=== PATIENT | female | born 1965 | race Caucasian/White ===

== ENCOUNTER → 2017-07-01 | Outpatient (CLI) | payer OTHER, SELFPAY | PROVIDERS: Visit Provider Internal Medicine | DX: I50.30 Unspecified diastolic (congestive) heart failure (principal); I11.9 Hypertensive heart disease without heart failure; E78.5 Hyperlipidemia, unspecified; R01.1 Cardiac murmur, unspecified; E11.9 Type 2 diabetes mellitus without complications; G47.33 Obstructive sleep apnea (adult) (pediatric) | CPT/HCPCS: 36415; 80048; 83880 ==

== ENCOUNTER → 2017-07-12 | Outpatient (CLI) | payer OTHER, SELFPAY | PROVIDERS: Visit Provider Internal Medicine | DX: I10 Essential (primary) hypertension (principal); E78.5 Hyperlipidemia, unspecified; E16.2 Hypoglycemia, unspecified; N18.2 Chronic kidney disease, stage 2 (mild) | CPT/HCPCS: 36415; 80053; 80061; 85025 ==

== ENCOUNTER → 2017-08-29 11:20 | Outpatient (CLI) | payer OTHER, SELFPAY ==
[2017-08-29 12:25] LABS: Anion Gap 10.8 mEq/L (5-15); Blood Urea Nitrogen 13 mg/dL (7-18); Carbon Dioxide 29 mmol/L (21.0-32.0); Chloride 104 mmol/L (98-107); Creatinine,Serum 0.68 mg/dL (0.55-1.02); Estimated Glomerular Filt Rate 91 ml/min (>60); GFR (African American) 110 ML/MIN (>60); Glucose 149 mg/dL (74-106); Potassium 3.8 mmoL/L (3.5-5.1); Sodium 140 mmol/L (136-145)
== END ==
PROVIDERS: Family Provider Internal Medicine; PCP Internal Medicine; Visit Provider Internal Medicine Cardiovascular Disease
DX: I10 Essential (primary) hypertension (principal); E78.4 Other hyperlipidemia; I50.32 Chronic diastolic (congestive) heart failure; G47.33 Obstructive sleep apnea (adult) (pediatric); R60.9 Edema, unspecified; R06.09 Other forms of dyspnea
CPT/HCPCS: 36415; 80048

== ENCOUNTER → 2017-09-05 14:46 | Outpatient (CLI) | payer OTHER, SELFPAY ==
[2017-09-12 06:16] LABS: D001-IgE D pteronyssinus <0.10 kU/L (Class 0); D002-IgE D farinae <0.10 kU/L (Class 0); E001-IgE Cat Dander <0.10 kU/L (Class 0); E005-IgE Dog Dander <0.10 kU/L (Class 0); G002-IgE Bermuda Grass <0.10 kU/L (Class 0); G006-IgE Timothy Grass <0.10 kU/L (Class 0); I006-IgE Cockroach, German <0.10 kU/L (Class 0); Immunoglobulin E, Total 15 IU/mL (0-100); M001-IgE Penicillium chrysogen <0.10 kU/L (Class 0); M002-IgE Cladosporium herbarum <0.10 kU/L (Class 0); M003-IgE Aspergillus fumigatus <0.10 kU/L (Class 0); M006-IgE Alternaria alternata <0.10 kU/L (Class 0); T001-IgE Maple/Box Elder <0.10 kU/L (Class 0); T003-IgE Common Silver Birch <0.10 kU/L (Class 0); T006-IgE Cedar, Mountain <0.10 kU/L (Class 0); T007-IgE Oak, White <0.10 kU/L (Class 0); T008-IgE Elm, American <0.10 kU/L (Class 0); T010-IgE Walnut <0.10 kU/L (Class 0); T011-IgE Maple Leaf Sycamore <0.10 kU/L (Class 0); T014-IgE Cottonwood <0.10 kU/L (Class 0); T015-IgE Ash, White <0.10 kU/L (Class 0); T022-IgE Pecan, Hickory <0.10 kU/L (Class 0); T070-IgE White Mulberry <0.10 kU/L (Class 0); W001-IgE Ragweed, Short <0.10 kU/L (Class 0); W011-IgE Thistle, Russian <0.10 kU/L (Class 0); W014-IgE Pigweed, Common <0.10 kU/L (Class 0); W018-IgE Sheep Sorrel <0.10 kU/L (Class 0)
[2017-09-12 11:53] LABS: E072-IgE Mouse Urine <0.10 kU/L (Class 0)
[2017-09-13 17:20] LABS: Miscellaneous Test SEE SEP REPORT
== END ==
PROVIDERS: Visit Provider Allergy & Immunology
DX: T78.1XXA Other adverse food reactions, not elsewhere classified, initial encounter (principal)
CPT/HCPCS: 36415; 86003

== ENCOUNTER → 2018-02-17 07:10 | Outpatient (CLI) | payer OTHER, SELFPAY ==
[2018-02-17 08:41] LABS: Anion Gap 15.2 mEq/L (5-15); Blood Urea Nitrogen 25 mg/dL (7-18); Calcium 9.8 mg/dL (8.5-10.1); Carbon Dioxide 25 mmol/L (21.0-32.0); Chloride 100 mmol/L (98-107); Creatinine,Serum 1.02 mg/dL (0.55-1.02); Estimated Glomerular Filt Rate 57 ml/min (>60); GFR (African American) 69 ML/MIN (>60); Glucose 254 mg/dL (74-106); Potassium 4.2 mmoL/L (3.5-5.1); Sodium 136 mmol/L (136-145)
== END ==
PROVIDERS: Visit Provider Physician Assistant
DX: I10 Essential (primary) hypertension (principal); E78.5 Hyperlipidemia, unspecified; I50.30 Unspecified diastolic (congestive) heart failure; R60.9 Edema, unspecified; R06.09 Other forms of dyspnea; G47.33 Obstructive sleep apnea (adult) (pediatric)
CPT/HCPCS: 36415; 80048

== ENCOUNTER → 2018-02-19 20:06 | Outpatient (CLI) | payer OTHER, SELFPAY | PROVIDERS: PCP Internal Medicine; Referring Provider Internal Medicine Cardiovascular Disease; Visit Provider Specialist | DX: G47.33 Obstructive sleep apnea (adult) (pediatric) (principal) | CPT/HCPCS: 95811 ==

== ENCOUNTER → 2018-04-25 10:10 | Outpatient (CLI) | payer OTHER, SELFPAY ==
[2018-04-25 11:20] LABS: Hemoglobin A1C 7.5 % (0.0-7.0)
[2018-04-25 12:32] LABS: Alanine Aminotransferase 55 U/L (12-78); Albumin Level 3.5 gm/dL (3.4-5.0); Alkaline Phosphatase 120 U/L (46-116); Anion Gap 13.9 mEq/L (5-15); Aspartate Amino Transferase 38 U/L (15-37); Bilirubin,Total 0.4 mg/dL (0.2-1.0); Blood Urea Nitrogen 13 mg/dL (7-18); Calcium 9.1 mg/dL (8.5-10.1); Carbon Dioxide 25 mmol/L (21.0-32.0); Chloride 103 mmol/L (98-107); Chol/HDL Ratio 5.3 (1-3.5); Cholesterol 205 mg/dL (140-200); Creatinine,Serum 0.79 mg/dL (0.55-1.02); Estimated Glomerular Filt Rate 76 ml/min (>60); GFR (African American) 92 ML/MIN (>60); Globulin 3.6 gm/dl (1.3-3.2); Glucose 137 mg/dL (74-106); HDL Cholesterol 39 mg/dL (29-89); LDL Cholesterol 105 mg/dL (0-130); Potassium 3.9 mmoL/L (3.5-5.1); Sodium 138 mmol/L (136-145); Total Protein,Serum 7.1 gm/dL (6.4-8.2); Triglycerides 306 mg/dL (30-200); VLDL Cholesterol 61 mg/dL (0-40)
== END ==
PROVIDERS: PCP Internal Medicine; Visit Provider Specialist
DX: E11.9 Type 2 diabetes mellitus without complications (principal); I10 Essential (primary) hypertension
CPT/HCPCS: 80053; 80061; 83036

== ENCOUNTER → 2018-06-24 11:57 | Outpatient (CLI) | payer OTHER, SELFPAY ==
[2018-06-24 13:10] LABS: Anion Gap 18.4 mEq/L (5-15); Blood Urea Nitrogen 29 mg/dL (7-18); Carbon Dioxide 24 mmol/L (21.0-32.0); Chloride 100 mmol/L (98-107); Creatinine,Serum 1.15 mg/dL (0.55-1.02); Estimated Glomerular Filt Rate 50 ml/min (>60); GFR (African American) 60 ML/MIN (>60); Glucose 204 mg/dL (74-106); Potassium 4.4 mmoL/L (3.5-5.1); Sodium 138 mmol/L (136-145)
== END ==
PROVIDERS: Visit Provider Internal Medicine Cardiovascular Disease
DX: E78.49 Other hyperlipidemia (principal); G47.33 Obstructive sleep apnea (adult) (pediatric); I10 Essential (primary) hypertension; I50.32 Chronic diastolic (congestive) heart failure; R06.09 Other forms of dyspnea; R60.1 Generalized edema
CPT/HCPCS: 36415; 80048

== ENCOUNTER → 2018-06-27 12:31 | Outpatient (CLI) | payer OTHER, SELFPAY | PROVIDERS: PCP Internal Medicine; Visit Provider Physician Assistant | DX: R00.0 Tachycardia, unspecified (principal) | CPT/HCPCS: 93270 ==

== ENCOUNTER → 2018-07-24 14:38 | Outpatient (CLI) | payer OTHER, SELFPAY ==
--- NOTE | 2018-07-24 14:39 | XR_ITS ---
XR foot wt bearing RT 3V HISTORY: ITS.REASON: pain ORDERING PHYSICIAN: Alicia Vega DPM PATIENT AGE: 52 years COMPARISON: None FINDINGS: There are minimal osteoarthritic change of the first metatarsophalangeal joint with spurring along the posterior and distal aspect of the first metatarsal. Borderline pes planus. Small calcaneal spur. No fracture or dislocation. No lytic or blastic change. The mid foot has an unremarkable appearance. IMPRESSION: Borderline pes planus with osteoarthritis of the first metatarsophalangeal joint
== END ==
PROVIDERS: PCP Internal Medicine; Visit Provider Podiatrist
DX: S99.921A Unspecified injury of right foot, initial encounter (principal)
CPT/HCPCS: 73630

== ENCOUNTER → 2019-01-02 08:13 | Outpatient (CLI) | payer OTHER, SELFPAY ==
--- NOTE | 2019-01-02 08:16 | MM_ITS ---
MM Dig screening mamm BI w/CAD ORDERING PHYSICIAN : Baron Hernandez PATIENT AGE: 53 years GENDER: Female COMPARISON: Bilateral mammogram studies from February 2016 and 2012. Film screen mammogram October 2009 and September 2008 INDICATION: ITS.Routine screening mammogram.. No hormones. Patient has one ovary. No new complaints. Noncontributory family history TECHNIQUE: Standard CC and MLO images were obtained. R2 CAD reviewed. Additional cleavage view included FINDINGS: Lower density breast with minimal fibroglandular elements bilaterally. No dominant masses significant concern. No significant calcifications. Minimal density towards superior right and left breast are similar to previous studies and reflect the distribution of fibroglandular elements. IMPRESSION: Stable bilateral mammogram with no significant new findings. Bilateral follow-up in one year recommended. BI-RADS Category: 2 stable Benign Finding(s) 1 RECOMMENDED FOLLOW-UP: 1YR 1 YEAR FOLLOW-UP (A letter has been sent to the patient regarding results of the study.)
== END ==
PROVIDERS: PCP Internal Medicine; Visit Provider Internal Medicine
DX: Z12.31 Encounter for screening mammogram for malignant neoplasm of breast (principal)
CPT/HCPCS: 77067

== ENCOUNTER → 2019-11-26 12:44 | Outpatient (CLI) | payer OTHER, SELFPAY ==
--- NOTE | 2019-11-26 12:50 | XR_ITS ---
PROCEDURE: XR FOOT WT BEARING LT 3V CLINICAL INDICATION: pain COMPARISON: [id number] XR foot RT 2V from 07/02/2018 [id number] XR foot wt bearing RT 3V from 07/24/2018 FINDINGS: No fracture or dislocation. No lytic or blastic change. There is normal mineralization. The joint spaces are well-preserved. No significant degenerative/arthritic changes. No erosive changes evident. Other findings:Flexion deformity involves the 2nd toe. Borderline pes planus there is a small calcaneal spur IMPRESSION: Flexion deformity 2nd toe with borderline pes planus Dictated by: Дмитрий Carrizales MD 11/26/2019 13:31 Electronically signed by Дмитрий Carrizales MD in [place] 11/26/2019 13:31
--- NOTE | 2019-11-26 12:50 | XR_ITS ---
PROCEDURE: XR FOOT WT BEARING RT 3V CLINICAL INDICATION: pain Right foot pain COMPARISON: [id number] XR foot RT 2V from 07/02/2018 [id number] XR foot wt bearing RT 3V from 07/24/2018 FINDINGS: No fracture or dislocation. No lytic or blastic change. There is normal mineralization. There are osteoarthritic changes at the 1st metatarsophalangeal joint. Borderline pes planus. There are mild degenerative changes at the anterior distal tibia. Minimal bony hypertrophy is present at this region. Other findings:None. IMPRESSION: Osteoarthritis 1st MTP joint slightly progressed with borderline pes planus Dictated by: Дмитрий Carrizales MD 11/26/2019 13:22 Electronically signed by Дмитрий Carrizales MD in [place] 11/26/2019 13:22
== END ==
PROVIDERS: PCP Internal Medicine; Visit Provider Podiatrist
DX: M79.672 Pain in left foot (principal); M79.671 Pain in right foot
CPT/HCPCS: 73630

== ENCOUNTER → 2019-12-01 16:56 | Outpatient (CLI) | payer OTHER, SELFPAY ==
[2019-12-01 17:28] LABS: Blood Urea Nitrogen 25 mg/dl (7-17); Estimated Glomerular Filt Rate 65 ml/min (>60); GFR (African American) 79 ML/MIN (>60)
== END ==
PROVIDERS: Visit Provider Podiatrist
DX: G89.29 Other chronic pain (principal); M25.571 Pain in right ankle and joints of right foot; R22.41 Localized swelling, mass and lump, right lower limb
CPT/HCPCS: 36415; 82565; 84520

== ENCOUNTER → 2019-12-04 12:57 | Outpatient (CLI) | payer OTHER, SELFPAY ==
--- NOTE | 2019-12-04 12:57 | MR_ITS ---
PROCEDURE: MR FOOT RT WO/W CON CLINICAL INDICATION: eval presence of clinical soft tissue mass noted. Foot pain with palpable mass, ATFL sprain/tear, ankle joint effusion, edema, posterior tibial tendon dysfunction COMPARISON: XR FOOT WT BEARING RT 3V from 11/26/2019 MR FOOT RT WO/W CON from 12/04/2019 TECHNIQUE: Routine multiplanar multi echo sequences are performed without and with gadolinium enhancement. FINDINGS: A marker is placed on the area of palpable concern. Stir images show no areas of bone marrow edema. No obvious fracture. Tibiofibular ligaments are intact. There is some thickening of the ATFL on the T2 weighted images with some enhancement suggesting sprain or partial tear. PT FL appears intact the. The deltoid ligament appears intact. The peroneal tendons, Achilles tendon, posterior tibial tendon, flexor hallucis longus and flexor digitorum longus tendons appear intact. The anterior extensor tendons also appear intact. The there is borderline pes planus. A marker is placed along the lateral aspect of the ankle to latrice the area of palpable concern. There is some asymmetric prominence of adipose tissue in this region suggesting a lipoma measuring approximately 4 x 2 cm. No other abnormalities are evident. No suspicious soft tissue mass or fluid collection is apparent. This is just distal and anterior to the tip of the lateral malleolus.. There is mild hallux valgus with osteoarthritis of the 1st MTP joint. There is a focal area of increased T2 signal at the base of the 3rd metatarsal.. This does demonstrate contrast enhancement best detected on the coronal images. Etiology is indeterminate. Follow-up is suggested. No adjacent soft tissue mass. The cortex appears intact. The IMPRESSION: 1. Sprain versus partial tear of the ATFL. 2. 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 Small enhancing lesion at the base of the 3rd metatarsal. This measures approximately 8 mm and is of undetermined etiology. Neoplasm or infection is considered. Consider 3 month follow-up to confirm stability 4. Osteoarthritis 1st MTP joint with mild hallux valgus and mild pes planus Dictated by: Дмитрий Carrizales MD 12/04/2019 16:21 Electronically signed by Дмитрий Carrizales MD in [place] 12/09/2019 11:04
--- NOTE | 2019-12-04 12:57 | MR_ITS ---
PROCEDURE: MR ANKLE RT WO/W CON CLINICAL INDICATION: eval presence of clinical soft tissue mass noted. Foot pain with palpable mass, ATFL sprain/tear, ankle joint effusion, edema, posterior tibial tendon dysfunction COMPARISON: XR FOOT WT BEARING RT 3V from 11/26/2019 MR FOOT RT WO/W CON from 12/04/2019 TECHNIQUE: Routine multiplanar multi echo sequences are performed without and with gadolinium enhancement. FINDINGS: A marker is placed on the area of palpable concern. Stir images show no areas of bone marrow edema. No obvious fracture. Tibiofibular ligaments are intact. There is some thickening of the ATFL on the T2 weighted images with some enhancement suggesting sprain or partial tear. Posterior tibio-fibular ligament appears intact. The deltoid ligament appears intact. The peroneal tendons, Achilles tendon, posterior tibial tendon, flexor hallucis longus and flexor digitorum longus tendons appear intact. The anterior extensor tendons also appear intact. The there is borderline pes planus. A marker is placed along the lateral aspect of the ankle to latrice the area of palpable concern. There is some asymmetric prominence of adipose tissue in this region suggesting a lipoma measuring approximately 4 x 2 cm. No other abnormalities are evident. No suspicious soft tissue mass or fluid collection is apparent. This is just distal and anterior to the tip of the lateral malleolus.. There is mild hallux valgus with osteoarthritis of the 1st MTP joint. There is a focal area of increased T2 signal at the base of the 3rd metatarsal.. This does demonstrate contrast enhancement best detected on the coronal images. Etiology is indeterminate. Follow-up is suggested. No adjacent soft tissue mass. The cortex appears intact. The IMPRESSION: 1. Sprain versus partial tear of the ATFL. 2. 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 Small enhancing lesion at the base of the 3rd metatarsal. This measures approximately 8 mm and is of undetermined etiology. Neoplasm or infection is considered. Consider 3 month follow-up to confirm stability 4. Osteoarthritis 1st MTP joint with mild hallux valgus and mild pes planus Dictated by: Дмитрий Carrizales MD 12/09/2019 11:03 Electronically signed by Дмитрий Carrizales MD in [place] 12/09/2019 11:03
== END ==
PROVIDERS: PCP Internal Medicine; Visit Provider Podiatrist
DX: G89.29 Other chronic pain (principal); M25.571 Pain in right ankle and joints of right foot; R22.41 Localized swelling, mass and lump, right lower limb
CPT/HCPCS: 73720; 73723

== ENCOUNTER → 2020-01-22 10:59 | Outpatient (CLI) | payer OTHER, SELFPAY ==
[2020-01-22 12:52] LABS: Chloride 102 mmol/L (98-107); Potassium 4.5 mmoL/L (3.5-5.1); Sodium 138 mmol/L (136-145)
[2020-01-22 12:55] LABS: Anion Gap 15.5 mEq/L (5-15); Blood Urea Nitrogen 26 mg/dl (7-17); Calcium 10.8 mg/dl (8.4-10.2); Carbon Dioxide 25 mmol/L (22.0-30.0); Estimated Glomerular Filt Rate 58 ml/min (>60); GFR (African American) 70 ML/MIN (>60); Glucose 107 mg/dl (74-100)
[2020-01-22 13:09] LABS: NT Pro Brain Natriuretic Pep. 45.4 pg/mL (0-125)
== END ==
PROVIDERS: Visit Provider Internal Medicine Cardiovascular Disease
DX: I50.32 Chronic diastolic (congestive) heart failure (principal); R06.02 Shortness of breath; R60.1 Generalized edema; E78.49 Other hyperlipidemia; I10 Essential (primary) hypertension
CPT/HCPCS: 36415; 80048; 83880; 93270

== ENCOUNTER 2020-02-03 09:30 | Outpatient (RCR) | payer OTHER, SELFPAY ==
--- NOTE | 2020-01-12 17:05 | HMH.PTOPEV ---
PT Outpatient Evaluation Rehab PT Outpatient Evaluation Start: 01/12/20 16:18 Freq: Status: Active Protocol: Document 01/12/20 16:18 JALILROSALINA (Rec: 01/12/20 17:05 JALILROSALINA [id number]) Electronically Signed By Michael Salmon, PT 01/12/20 16:18 Outpatient Therapy Subjective History Subjective History This is the initial Physical Therapy evaluation for Radha Ward. Pt is a 54 y/o female referred to PT for c/o R foot pain. Pt reports insidious onset of pain ~ 3 months ago, but does report new orthotics ~ 6 months ago. Pt rpeorts pain is on lateral side and dorsum of R foot. Pt reports pain is an aching throb that will increase to a burning pain w/ activity. Chief Complaint Pain Symptom Type Ache,Throb,Sharp,Dull,Stabbing ,Burning Symptoms Relieved By Rest/Positioning,OTC Meds Symptoms Aggravated By Standing,Physical Activity, Walking Prior Functional Limitations None Current Functional Limitations Lifting,Standing,Recreation Activity,Walking Symptom Description Intermittent Level of pain today (0-10) 3 Pain scale - at its best (0-10) 0 Pain scale - at its worst (0-10) 9 Ankle/Foot Eval Gait Observation General Gait Pattern Observation Antalgic Gait,Decrease Weight Bear (R) Palpation Tenderness right Ankle/Foot Palpation Findings Tenderness,Trigger Point Ankle/Foot Palpation Overall Comment Pt is TTP along peroneal tendon and insertion, multiple trigger points MMT Ankle Dorsiflexion Strength Grade 4 Good Ankle Plantarflexion Strength Grade 4 Good Foot Eversion Strength Grade 4 Good Foot Inversion Strength Grade 5 Normal Special Tests Ankle Anterior Drawer Test Negative Right Ankle Eversion Test Negative Right Ankle Inversion (supination) Test Positive Right Outpatient Therapy Assessment Impairments Problems/Impairmments Palpation Tenderness,Impaired Strength,Impaired Gait Pattern ,Impaired Walking,Impaired Standing,Impaired Household Care,Impaired Recreational Activities,Impaired Work Activities,Subjective C/O Pain ,Impaired Self Care/Self
== END 2020-02-03 09:35 | disposition home or self-care (01) ==
LOC: PT 09:30
PROVIDERS: PCP Internal Medicine; Visit Provider Podiatrist
DX: M25.571 Pain in right ankle and joints of right foot (principal); M76.821 Posterior tibial tendinitis, right leg; S93.491A Sprain of other ligament of right ankle, initial encounter
CPT/HCPCS: 97010; 97035; 97110; 97140; 97163

== ENCOUNTER → 2020-03-29 14:43 | Outpatient (CLI) | payer OTHER, SELFPAY ==
--- NOTE | 2020-03-29 | MR_ITS ---
PROCEDURE: MR HEAD/BRAIN WO CON CLINICAL INDICATION: CONFUSION AND DIFFICULTY GETTING WORDS OUT PT. C/O CONFUSION AND TROUBLE GETTING WORDS OUT X 2 MONTHS. PT ALSO STATES HX OF MIGRAINES. PRIOR CT BRAIN DONE 03/30/2019 COMPARISON: CT CT HEAD/BRAIN WO CON from 03/30/2019 TECHNIQUE: Routine multiplanar multi echo sequences are performed without gadolinium enhancement. FINDINGS: No midline shift, mass effect, intracranial hemorrhage, or hydrocephalus is evident. The cerebellopontine angles, cerebellum, and brainstem have an unremarkable appearance. There is no evidence of acute infarction. Normal white matter signal intensity. The pituitary, optic chiasm, corpus callosum, and craniocervical junction have an unremarkable appearance. No mastoid effusion or sinus air-fluid level. IMPRESSION: Negative MRI of the brain without contrast. Dictated by: Дмитрий Carrizales MD 03/30/2020 13:04 Дмитрий Carrizales MD in [facility] 03/30/2020 13:04
== END ==
PROVIDERS: PCP Internal Medicine; Visit Provider Internal Medicine
DX: R41.0 Disorientation, unspecified (principal); R47.89 Other speech disturbances
CPT/HCPCS: 70551

== ENCOUNTER → 2020-04-07 11:57 | Outpatient (CLI) | payer OTHER, SELFPAY ==
[2020-04-07 11:59] LABS: MANUAL DIFFERENTIAL MANUAL DIFFERENTIAL (MANUAL DIFF)
[2020-04-07 13:12] LABS: Basophils % 0.3 % (0.1-2.0); Eosinophils # 0.2 K/mm3 (0.0-0.4); Eosinophils % 2.7 % (0.1-12.0); Hematocrit 39.5 % (37.0-47.0); Hemoglobin 12.7 g/dL (12.2-16.2); Lymphocytes # 1.6 K/mm3 (0.7-4.5); Lymphocytes % 18.8 % (10-50); Mean Corpuscular HGB Conc 32.2 g/dL (31.8-35.4); Mean Corpuscular Hemoglobin 29.5 pg (27.0-31.2); Mean Corpuscular Volume 91.7 fl (81-99); Mean Platelet Volume 7.4 fl (7.4-10.4); Monocytes # 0.6 K/mm3 (0.1-1.0); Monocytes % 6.9 % (1.7-9.3); Neutrophils # 6.2 K/mm3 (1.8-7.8); Neutrophils % 71.1 % (37.0-80.0); Platelet Count 347 K/mm3 (142-424); Red Cell Distribution Width 14.1 % (11.5-17.5); White Blood Count 8.7 K/mm3 (4.8-10.8)
[2020-04-07 14:29] LABS: Chloride 104 mmol/L (98-107); Potassium 4.4 mmoL/L (3.5-5.1); Sodium 141 mmol/L (136-145)
[2020-04-07 14:32] LABS: Alanine Aminotransferase 24 U/L (12-78); Albumin Level 4.2 g/dl (3.5-5.0); Albumin/Globulin Ratio 1.6 (1.1-1.8); Alkaline Phosphatase 118 U/L (38-126); Anion Gap 17.4 mEq/L (5-15); Aspartate Amino Transferase 21 U/L (14-36); Bilirubin,Total 0.4 mg/dl (0.2-1.3); Blood Urea Nitrogen 15 mg/dl (7-17); Carbon Dioxide 24 mmol/L (22.0-30.0); Estimated Glomerular Filt Rate 75 ml/min (>60); GFR (African American) 90 ML/MIN (>60); Globulin 2.7 g/dL (1.3-3.2); Total Protein,Serum 6.9 g/dl (6.3-8.2)
[2020-04-07 14:33] LABS: Glucose 152 mg/dl (74-100)
[2020-04-07 14:42] LABS: Eosinophils % 2 % (0-3); Lymphocytes % 14 % (10-50); Monocytes % 6 % (2-9); Neutrophils % 78 % (42-76); Platelet Estimate Normal; RBC Morphology Normal; Total Cells Counted 100
[2020-04-07 20:42] LABS: Vitamin B12 315 pg/mL (239-931)
[2020-04-08 12:16] LABS: Anti-Centromere B Antibodies <0.2 AI (0.0-0.9); Anti-Jo-1 <0.2 AI (0.0-0.9); Anti-Smith Antibody <0.2 AI (0.0-0.9); Antichromatin Antibodies <0.2 AI (0.0-0.9); Antiscleroderma-70 Antibodies <0.2 AI (0.0-0.9); RNP Antibodies <0.2 AI (0.0-0.9); Sjogren's Anti-SS-A 0.2 AI (0.0-0.9); Sjogren's Anti-SS-B <0.2 AI (0.0-0.9)
[2020-04-08 17:19] LABS: Anti-DNA (DS) Ab Qn 5 IU/mL (0-9)
== END ==
PROVIDERS: Visit Provider Specialist
DX: H53.123 Transient visual loss, bilateral (principal); R47.89 Other speech disturbances
CPT/HCPCS: 36415; 80053; 82607; 85007; 85014; 85018; 85048; 85049; 86225; 86235

== ENCOUNTER → 2020-04-15 08:40 | Outpatient (CLI) | payer OTHER, SELFPAY ==
--- NOTE | 2020-04-15 08:40 | MR_ITS ---
PROCEDURE: MR ANGIO NECK WO CON CLINICAL INDICATION: transient visual loss PT. C/O CONFUSION AND TROUBLE GETTING WORDS OUT X 2 MONTHS,RETINAL MIGRAINES, DIABETIC, HEART DISEASE. PT STATES CHECKING VESSELS BECAUSE SHE IS HIGH RISK FOR STROKE. COMPARISON: No exams were available for comparison TECHNIQUE: Routine multiplanar multi echo sequences are performed without gadolinium enhancement. FINDINGS: 3D [id number] images are obtained without contrast. Or the proximal common carotids are not demonstrated. The cervical portion of the carotid arteries including common carotid and internal carotid arteries have an unremarkable appearance. No obvious stenotic lesion or occlusion or dissection apparent. The cervical portion of vertebrals have an unremarkable appearance. The left vertebral is dominant. IMPRESSION: Negative MRA of the neck. Dictated by: Дмитрий Carrizales MD 04/17/2020 13:01 Дмитрий Carrizales MD in [facility] 04/17/2020 13:01
--- NOTE | 2020-04-15 08:40 | MR_ITS ---
PROCEDURE: MR ANGIO HEAD WO CON CLINICAL INDICATION: headaches, word finding difficulty PT. C/O CONFUSION AND TROUBLE GETTING WORDS OUT X 2 MONTHS,RETINAL MIGRAINES, DIABETIC, HEART DISEASE. PT STATES CHECKING VESSELS BECAUSE SHE IS HIGH RISK FOR STROKE. COMPARISON: No exams were available for comparison TECHNIQUE: 3D [id number] images obtained without contrast with multi slab reformats FINDINGS: No aneurysm, arteriovenous malformation, major intracranial occlusive process, or arterial dissection evident. Single-shot MRV shows no evidence of sagittal sinus thrombosis. IMPRESSION: Negative MRA of the brain Dictated by: Дмитрий Carrizales MD 04/17/2020 13:04 Дмитрий Carrizales MD in [facility] 04/17/2020 13:04
== END ==
PROVIDERS: PCP Internal Medicine; Visit Provider Specialist
DX: R47.89 Other speech disturbances (principal); E11.65 Type 2 diabetes mellitus with hyperglycemia; E78.5 Hyperlipidemia, unspecified; H53.123 Transient visual loss, bilateral; I10 Essential (primary) hypertension; Z79.84 Long term (current) use of oral hypoglycemic drugs
CPT/HCPCS: 70544; 70547

== ENCOUNTER → 2020-06-02 12:49 | Outpatient (CLI) | payer OTHER, SELFPAY ==
--- NOTE | 2020-06-02 12:52 | CT_ITS ---
PROCEDURE: CT ABDOMEN PELVIS WO CON CLINICAL INDICATION: LT ABD PAIN LLQ pain, nausea x several days no prior COMPARISON: No exams were available for comparison TECHNIQUE: Axial images obtained with sagittal and coronal reformats. All CT scans at the facility use one or more dose reduction, viz: automated exposure control, ma/kV adjustment per patient size (including targeted exams where dose is matched to indication, i.e. head), or iterative reconstruction technique. FINDINGS: LOWER THORAX: Mild atelectatic or fibrotic changes in the right lung base. ABDOMEN & PELVIS: The liver, gallbladder, spleen, adrenal glands, and pancreas have an unremarkable unenhanced appearance. There is a nonobstructing 2 mm stone in the upper pole of the left kidney. No hydronephrosis. No ureteral calculi. Mild amount of retained colonic feces. No intestinal obstruction or free air. No evidence of appendicitis. There are scattered colonic diverticula but no evidence of diverticulitis. There has been a prior hysterectomy. The no acute bony findings. Degenerative changes are present in the lumbar spine with facet arthropathy at L3-L4 and L5. IMPRESSION: 1. No acute finding. 2. Nonobstructing left renal calculus. 3. Mild amount of retained colonic feces with scattered colonic diverticula but no evidence of diverticulitis Dictated by: Дмитрий Carrizales MD 06/03/2020 09:11 Дмитрий Carrizales MD in [facility] 06/03/2020 09:11
== END ==
PROVIDERS: PCP Internal Medicine; Visit Provider Internal Medicine
DX: R10.32 Left lower quadrant pain (principal)
CPT/HCPCS: 74176

== ENCOUNTER → 2020-06-06 11:49 | Outpatient (CLI) | payer OTHER, SELFPAY ==
[2020-06-06 12:08] LABS: Basophils % 0.5 % (0.1-2.0); Eosinophils # 0.3 K/mm3 (0.0-0.4); Eosinophils % 3.9 % (0.1-12.0); Hematocrit 41.5 % (37.0-47.0); Hemoglobin 13.5 g/dL (12.2-16.2); Lymphocytes # 1.6 K/mm3 (0.7-4.5); Lymphocytes % 20.7 % (10-50); Mean Corpuscular HGB Conc 32.7 g/dL (31.8-35.4); Mean Corpuscular Hemoglobin 30.2 pg (27.0-31.2); Mean Corpuscular Volume 92.5 fl (81-99); Mean Platelet Volume 7.7 fl (7.4-10.4); Monocytes # 0.5 K/mm3 (0.1-1.0); Monocytes % 6.3 % (1.7-9.3); Neutrophils # 5.4 K/mm3 (1.8-7.8); Neutrophils % 68.6 % (37.0-80.0); Platelet Count 369 K/mm3 (142-424); Red Blood Count 4.48 M/mm3 (4.20-5.40); Red Cell Distribution Width 14.2 % (11.5-17.5); White Blood Count 7.9 K/mm3 (4.8-10.8)
[2020-06-06 12:55] LABS: Chloride 105 mmol/L (98-107); Sodium 143 mmol/L (136-145)
[2020-06-06 12:56] LABS: Potassium 4.2 mmoL/L (3.5-5.1)
[2020-06-06 12:58] LABS: Blood Urea Nitrogen 21 mg/dl (7-17); Estimated Glomerular Filt Rate 47 ml/min (>60); GFR (African American) 57 ML/MIN (>60)
[2020-06-06 12:59] LABS: Anion Gap 16.2 mEq/L (5-15); Calcium 10.8 mg/dl (8.4-10.2); Carbon Dioxide 26 mmol/L (22.0-30.0); Glucose 117 mg/dl (74-100)
== END ==
PROVIDERS: Visit Provider Internal Medicine
DX: R10.32 Left lower quadrant pain (principal)
CPT/HCPCS: 36415; 80048; 85025

== ENCOUNTER → 2020-06-16 10:31 | Outpatient (CLI) | payer OTHER, SELFPAY ==
--- NOTE | 2020-06-16 10:36 | CT_ITS ---
PROCEDURE: CT ABDOMEN PELVIS W CON CLINICAL INDICATION: LLQ PAIN, POSS DIVERTICULITIS, HX OF RECENT UTI 75 ML ISO 370, REDICAT COMPARISON: CT CT ABDOMEN PELVIS WO CON from 06/02/2020 TECHNIQUE: IV Contrast: 75ML Isovue 370 Oral Contrast None Axial images obtained with sagittal and coronal reformats. All CT scans at the facility use one or more dose reduction, viz: automated exposure control, ma/kV adjustment per patient size (including targeted exams where dose is matched to indication, i.e. head), or iterative reconstruction technique. FINDINGS: There is some mild atelectatic or fibrotic changes in the left lower lobe. The liver has an unremarkable appearance. There is mild splenomegaly at 13.5 cm. The adrenal glands, pancreas, and kidneys have an unremarkable appearance. No renal or ureteral calculi. There is a mild amount of retained colonic feces. No evidence of appendicitis. Soft tissue density is present within the cecum which may be related to adherent feces. No evidence of diverticulitis. There has been a prior hysterectomy. No intestinal obstruction or free air. No acute bony findings. There are degenerative changes in the lumbar spine. IMPRESSION: 1. No acute finding. No evidence diverticulitis. 2. Mild amount of retained colonic feces Dictated by: Дмитрий Carrizales MD 06/18/2020 16:54 Дмитрий Carrizales MD in [facility] 06/18/2020 16:54
[2020-06-16 11:17] LABS: Blood Urea Nitrogen 18 mg/dl (7-17); Estimated Glomerular Filt Rate 75 ml/min (>60); GFR (African American) 90 ML/MIN (>60)
== END ==
PROVIDERS: PCP Internal Medicine; Visit Provider Internal Medicine
DX: R10.32 Left lower quadrant pain (principal)
CPT/HCPCS: 36415; 74177; 82565; 84520; Q9967

== ENCOUNTER → 2020-06-23 10:02 | Outpatient (CLI) | payer OTHER, SELFPAY ==
--- NOTE | 2020-06-23 | CA_ITS ---
APPROVED REPORT Bilateral Lower Extremity Venous Study for DVT. Payroll Technician: CT Indications Risk Factors Asa Vein Imaging CFV (R): compressive, spontaneous, phasic, augmentation SFJ (R): compressive, spontaneous, phasic, augmentation FEM (R): compressive, spontaneous, phasic, augmentation POP (R): compressive, spontaneous, phasic, augmentation DFV (R): compressive, spontaneous, phasic, augmentation PTV (R): compressive, spontaneous, phasic, augmentation GSV (R): compressive, spontaneous, phasic, augmentation SSV (R): compressive, spontaneous, phasic, augmentation Peroneals (R):compressive, spontaneous, phasic, augmentation, difficult to visualize. GAS (R): compressive, spontaneous, phasic, augmentation CFV (L): compressive, spontaneous, phasic, augmentation SFJ (L): compressive, spontaneous, phasic, augmentation FEM (L): compressive, spontaneous, phasic, augmentation POP (L): compressive, spontaneous, phasic, augmentation DFV (L): compressive, spontaneous, phasic, augmentation PTV (L): compressive, spontaneous, phasic, augmentation GSV (L): compressive, spontaneous, phasic, augmentation SSV (L): compressive, spontaneous, phasic, augmentation Peroneals (L):compressive, spontaneous, phasic, augmentation GAS (L): compressive, spontaneous, phasic, augmentation Findings Bilateral venous negative for DVT/SVT. Vessels compressible. Conclusion Bilateral venous negative for DVT/SVT. Vessels compressible. Electronically signed by : Дмитрий Carrizales MD 06/23/2020 17:40:35
== END ==
PROVIDERS: PCP Internal Medicine; Visit Provider Internal Medicine
DX: M79.605 Pain in left leg (principal); M79.604 Pain in right leg; M79.89 Other specified soft tissue disorders
CPT/HCPCS: 93970

== ENCOUNTER → 2020-06-27 13:36 | Outpatient (CLI) | payer OTHER, SELFPAY ==
[2020-06-27 15:05] LABS: Amylase 40 U/L (30-110); Lipase 173 U/L (23-300)
== END ==
PROVIDERS: Visit Provider Internal Medicine
DX: R10.32 Left lower quadrant pain (principal)
CPT/HCPCS: 36415; 82150; 83690

== ENCOUNTER → 2020-07-19 14:41 | Outpatient (CLI) | payer OTHER, SELFPAY ==
[2020-07-19 18:10] LABS: Coronavirus 19 IgG Antibody Positive (Negative); Coronavirus 19 IgM Antibody Negative (Negative)
== END ==
PROVIDERS: Visit Provider Surgery
DX: Z01.818 Encounter for other preprocedural examination (principal); Z86.19 Personal history of other infectious and parasitic diseases; Z12.11 Encounter for screening for malignant neoplasm of colon
CPT/HCPCS: 36415; 86328

== ENCOUNTER 2020-07-21 10:23 | Day surgery (SDC) | payer OTHER, SELFPAY ==
[2020-07-19 14:30] VITALS: BMI 41.1
[2020-07-21 10:52] VITALS: BP 155/76; PULSE 68; RESP 18; TEMP 36.2; O2SAT 96
[2020-07-21 11:18] VITALS: O2SAT 96
[2020-07-21 12:29] VITALS: BP 165/91; PULSE 84; RESP 18; TEMP 36.4; O2SAT 93
--- NOTE | 2020-07-21 12:32 | HMH.SCOPE ---
- Procedure: Date: 07/21/20 Patient Date of :: 1965 Procedure Performed:: Esophagogastroduodenoscopy with polypectomy Colonoscopy with biopsy Indications:: Left lower quadrant abdominal pain History of gastric polyps History of colon polyps Performing Provider:: Juvenal Thornton MD Referring Provider:: Dr. Hernandez Sedation:: Monitored anesthesia care Procedure:: After informed consent was obtained the patient was taken to the endoscopy suite. Sedation ensued after the patient was transferred to the left lateral decubitus position. Pulse, blood pressure, and oxygen saturation were monitored throughout the procedure. The endoscope was advanced beyond the duodenal bulb. Retroflexion within the gastric lumen was accomplished. The gastroscope was carefully removed. Digital rectal exam revealed no significant abnormality. The colonoscope was placed in position. The entire colon was evaluated. The colonoscope was carefully removed and the patient was transferred to recovery in stable condition. Please see findings and specimens below for detail. Findings:: Gastroesophageal junction at 39 cm Multiple lobulated polyps throughout gastric lumen with greatest number in the mid gastric body Hemorrhoidal tags Bowel preparation moderate to poor Fairly severe spasticity of the entire colon Severe lack of relaxation Inflamed ileocecal valve Note: No definitive evidence of inflammatory changes or other anomaly to account for the patient's recent left lower quadrant abdominal pain. Specimens:: Distal gastric body polyps (snare) Mid gastric body polyps (snare) Biopsy of inflamed gastric cardia polyp Biopsy of ileocecal valve Recommendations:: Follow-up pathology Timing of repeat colonoscopy is pending pathology will be likely between 1-2 years secondary to limitations in visualization and history of polyps. Evaluation with regard to abdominal pain will be ongoing. Complications:: No immediate Estimated blood obtained (mL): 1
[2020-07-21 12:40] VITALS: BP 139/81; PULSE 88; RESP 18; O2SAT 92
[2020-07-21 12:50] VITALS: BP 150/100; PULSE 82; RESP 18; O2SAT 95
[2020-07-22 10:18] LABS: POC Glucose,Bedside 99 (70-110)
== END 2020-07-21 12:50 ==
LOC: OUTP 10:24
PROVIDERS: PCP Internal Medicine; Visit Provider Surgery
PROC: 0DJ08ZZ Inspection of Upper Intestinal Tract, Via Natural or Artificial Opening Endoscopic (ICD-10-PCS; CPT 43235; principal; 2020-07-21 11:30)
DX: K63.5 Polyp of colon (principal); K58.9 Irritable bowel syndrome, unspecified; K63.89 Other specified diseases of intestine; K64.9 Unspecified hemorrhoids; I11.0 Hypertensive heart disease with heart failure; I50.9 Heart failure, unspecified; F41.9 Anxiety disorder, unspecified; I73.9 Peripheral vascular disease, unspecified; E11.9 Type 2 diabetes mellitus without complications; E78.5 Hyperlipidemia, unspecified; Z79.82 Long term (current) use of aspirin; Z79.899 Other long term (current) drug therapy
CPT/HCPCS: 45385; 45380; 82962; J2704

== ENCOUNTER → 2020-08-03 16:32 | Outpatient (CLI) | payer OTHER, SELFPAY ==
[2020-08-03 17:09] LABS: Blood Urea Nitrogen 22 mg/dl (7-17); Estimated Glomerular Filt Rate 52 ml/min (>60); GFR (African American) 63 ML/MIN (>60)
== END ==
PROVIDERS: PCP Internal Medicine; Visit Provider Surgery
DX: Z01.818 Encounter for other preprocedural examination (principal); R10.9 Unspecified abdominal pain
CPT/HCPCS: 36415; 82565; 84520

== ENCOUNTER → 2020-08-04 10:31 | Outpatient (CLI) | payer OTHER, SELFPAY ==
--- NOTE | 2020-08-04 10:53 | MR_ITS ---
PROCEDURE: MR PELVIS WO/W CON CLINICAL INDICATION: abdominal wall pain llq pain worse when lifting and walking fast or a lot. [id number]. nausea. Put marker on spot where theres pain. COMPARISON: CT CT ABDOMEN PELVIS W CON from 06/16/2020 TECHNIQUE: Multiplanar multi echo sequences performed without and with gadolinium enhancement. FINDINGS: There is a moderate degree of motion artifact. This does obscure fine detail. The motion artifact somewhat obscures evaluation of the abdominal wall. No obvious abdominal wall hernia and no obvious abnormal signal intensity within the abdominal wall that would indicate muscle tear or strain. No abnormal fluid collections are evident. No acute bony findings. IMPRESSION: No evidence of abdominal wall hernia or abdominal wall muscle tear Dictated by: Дмитрий Carrizales MD 08/08/2020 15:03 Дмитрий Carrizales MD in [facility] 08/08/2020 15:03
== END ==
PROVIDERS: PCP Internal Medicine; Visit Provider Surgery
DX: R10.9 Unspecified abdominal pain (principal)
CPT/HCPCS: 72197; A9576

== ENCOUNTER → 2020-10-28 10:44 | Outpatient (CLI) | payer OTHER, SELFPAY ==
--- NOTE | 2020-10-28 | ECG_ITS ---
APPROVED REPORT Exam: Resting ECG HR:66 bpm ECG Measurements Heart Rate 66 AXES MA 176 P 41 QRSd 84 QRS 88 QT 404 T 50 QTc 423 Conclusion Normal sinus rhythm Cannot rule out Anterior infarct, age undetermined Abnormal ECG Electronically signed by : Zana Orona, 10/30/2020 07:30:21
--- NOTE | 2020-10-28 10:52 | XR_ITS ---
PROCEDURE: XR ANKLE WT BEARING RT MIN 3V CLINICAL INDICATION: pain COMPARISON: No exams were available for comparison FINDINGS: No fracture or dislocation. No lytic or blastic change. Minimal spurring along anterior distal tibia. IMPRESSION: No acute findings. Dictated by: Дмитрий Carrizales MD 10/28/2020 11:56 Дмитрий Carrizales MD in [facility] 10/28/2020 11:56
--- NOTE | 2020-10-28 10:52 | XR_ITS ---
PROCEDURE: XR FOOT WT BEARING RT 3V CLINICAL INDICATION: pain COMPARISON: CR [id number] XR foot RT 2V from 07/02/2018 CR [id number] XR foot wt bearing RT 3V from 07/24/2018 CR XR FOOT WT BEARING LT 3V from 11/26/2019 CR XR FOOT WT BEARING RT 3V from 11/26/2019 FINDINGS: No fracture or dislocation. No lytic or blastic change. There is normal mineralization. Minimal osteoarthritic changes 1st metatarsophalangeal joint. Pes planus. Bony hypertrophic changes are present distal aspect of the 1st metatarsal. There is a small calcaneal spur. IMPRESSION: Degenerative changes 1st metatarsophalangeal joint with bony hypertrophy and spurring along the distal aspect of the 1st metatarsal with pes planus Dictated by: Дмитрий Carrizales MD 10/28/2020 11:58 Дмитирй Carrizales MD in [facility] 10/28/2020 11:58
--- NOTE | 2020-10-28 10:52 | XR_ITS ---
PROCEDURE: XR CHEST 2V CLINICAL HISTORY: ASTHMA, COMPARISON: CR CXR CHEST(2 VIEWS-NOT PORTABLE) from 01/23/2017 CR XR CHEST 2V from 03/30/2019 FINDINGS: The cardiomediastinal silhouette and pulmonary vascularity are within normal limits. Minimal atelectatic or fibrotic change in the left lung base. The remaining lungs are clear. No acute bony abnormalities. IMPRESSION: Minimal left basilar atelectasis or scarring Dictated by: Дмитрий Carrizales MD 10/28/2020 11:55 Дмитрий Carrizales MD in [facility] 10/28/2020 11:55
[2020-10-28 11:43] LABS: Basophils # 0.1 K/mm3 (0-0.2); Basophils % 0.6 % (0.1-2.0); Eosinophils # 0.4 K/mm3 (0.0-0.4); Eosinophils % 4.9 % (0.1-12.0); Hematocrit 39.1 % (37.0-47.0); Hemoglobin 12.5 g/dL (12.2-16.2); Lymphocytes # 1.5 K/mm3 (0.7-4.5); Lymphocytes % 17.1 % (10-50); Mean Corpuscular HGB Conc 32.1 g/dL (31.8-35.4); Mean Corpuscular Hemoglobin 28.7 pg (27.0-31.2); Mean Corpuscular Volume 89.4 fl (81-99); Mean Platelet Volume 7.3 fl (7.4-10.4); Monocytes # 0.4 K/mm3 (0.1-1.0); Monocytes % 4.2 % (1.7-9.3); Neutrophils # 6.4 K/mm3 (1.8-7.8); Neutrophils % 73.1 % (37.0-80.0); Platelet Count 343 K/mm3 (142-424); Red Blood Count 4.37 M/mm3 (4.20-5.40); White Blood Count 8.8 K/mm3 (4.8-10.8)
[2020-10-28 12:04] LABS: Hemoglobin A1C 6.4 % (4.0-6.0)
[2020-10-28 12:33] LABS: Alanine Aminotransferase 19 U/L (12-78); Albumin Level 4.9 g/dl (3.5-5.0); Albumin/Globulin Ratio 1.8 (1.1-1.8); Alkaline Phosphatase 114 U/L (38-126); Anion Gap 15.3 mEq/L (5-15); Aspartate Amino Transferase 20 U/L (14-36); Bilirubin,Total 0.4 mg/dl (0.2-1.3); Blood Urea Nitrogen 18 mg/dl (7-17); Calcium 10.3 mg/dl (8.4-10.2); Carbon Dioxide 24 mmol/L (22.0-30.0); Chloride 106 mmol/L (98-107); Estimated Glomerular Filt Rate 58 ml/min (>60); GFR (African American) 70 ML/MIN (>60); Globulin 2.8 g/dL (1.3-3.2); Glucose 102 mg/dl (74-100); Potassium 4.3 mmoL/L (3.5-5.1); Sodium 141 mmol/L (136-145); Total Protein,Serum 7.7 g/dl (6.3-8.2)
[2020-10-28 12:50] LABS: 25-OH Vitamin D, Total 35.1 ng/mL (30-100)
== END ==
PROVIDERS: PCP Internal Medicine; Visit Provider Podiatrist
DX: Z01.818 Encounter for other preprocedural examination (principal); Z11.52 Encounter for screening for COVID-19; D17.9 Benign lipomatous neoplasm, unspecified; M25.371 Other instability, right ankle
CPT/HCPCS: 36415; 71046; 73610; 73630; 80053; 82306; 83036; 85025; 93005

== ENCOUNTER → 2020-10-31 15:08 | Outpatient (CLI) | payer OTHER, SELFPAY | PROVIDERS: PCP Internal Medicine; Visit Provider Podiatrist | DX: Z01.812 Encounter for preprocedural laboratory examination (principal); Z20.822 Contact with and (suspected) exposure to COVID-19; M25.571 Pain in right ankle and joints of right foot | CPT/HCPCS: U0003 ==

== ENCOUNTER 2020-11-02 06:12 | Day surgery (SDC) | payer OTHER, SELFPAY ==
[2020-10-31 14:46] VITALS: BMI 39.4
[2020-11-02] VITALS (18 sets, daily range): BP systolic 101–150; BP diastolic 54–82; PULSE 61–82; RESP 14–18; TEMP 36.2–37; O2SAT 91–98
--- NOTE | 2020-11-02 09:25 | HMH.ANESCL ---
[facility] Anesthesia Checklist - Patient Identification Patient Identification: Arm Band - Structural Data Admitted From: Home Planned Operative Procedure/s: Modified brodstrum R ankle, peroneal debridement/repair Consent for Planned Operative Procedure(s) Verified: Yes - NPO Status Verified Time NPO: 00:00 - Additional verifications Anesthesia Reactions: Yes (o2 dropped and swelling) Hx Blood Transfusions: No Blood Transfusion Reaction: No - Airway Assessment C-Spine Mobility Assessed: Yes TMJ Mobility Assessed: Yes Dentition: Good Dentition (Temporary fillings and plastic bridge on upper right side) - Neurological Assessment Level of Consciousness: Awake, Alert Hx Seizures: No Numbness or tingling in extremities: No - Anesthesia Plan Anesthesia Risk discussed: Yes Anesthesia Plan: Verified ASA Class: III Anesthesia Type: General w/block [facility] History I have reviewed the patient's past medical history: Yes Medical History: Reports:: Anxiety, Arrhythmia, Asthma, Congestive Heart Failure, Deep Vein Thrombosis, Diabetes Mellitus Type 2, Gastroesophageal Reflux Disease(GERD), Heart Murmur, Hyperlipidemia, Hypertension, Palpitations Denies:: Cancer, Diabetes Mellitus Type 1, Internal Pacemaker, MRSA, Seizures *Have you ever received a pneumonia vaccine?: Yes *Have you received a flu vaccine this season?: Yes Other Medical History: Reports: Anemia, Other. Denies: Blood Transfusion Reaction Anesthesia experience/problems:: Apnea and swelling Other Surgeries: Yes: Cardiac Catheterization (diastolic heart failure), Colonoscopy, EGD, Hysterectomy-Total, Other. No: Pacemaker Amputation: No Fractures: No - *Social History Last grade of school completed: Some college Smoking Status: Never smoker Alcohol Intake: never Alcohol Intake Frequency:: holidays/special occasions only Substance Use Type: denies use *Occupational Status:: employed Housing: house Household Members: spouse *Travel in the last 8 weeks: None - Psychiatric History Pschychiatric History:: Reports:: Anxiety Family Hx:: Cancer, Diabetes, Heart Attack
--- NOTE | 2020-11-02 11:00 | XR_ITS ---
PROCEDURE: XR ANKLE RT MIN 3V CLINICAL INDICATION: POST OP Follow-up surgery COMPARISON: CR XR ANKLE WT BEARING RT MIN 3V from 10/28/2020 CR XR FOOT WT BEARING RT 3V from 10/28/2020 CR XR ANKLE RT 2V from 11/02/2020 CR XR FOOT RT MIN 3V from 11/02/2020 CR ZERO IMAGE STUDY from 11/02/2020 FINDINGS: Posterior splint is present. An anchor screws noted at the distal fibula. The splint obscures fine bony detail. No obvious displaced fracture or dislocation apparent. Other findings:None. IMPRESSION: Postsurgical change of the distal fibula. Otherwise negative Dictated by: Дмитрий Carrizales MD 11/02/2020 12:50 Дмитрий Carrizales MD in [place] 11/02/2020 12:50
--- NOTE | 2020-11-02 12:01 | P.PN_ITS ---
[facility] Anesthesia Record Part I Intake, IV Amount: 700 Estimated blood loss (mL): 20 Urine output (mL): 300 Blood Pressure: 109/58 SaO2: 93 Pulse Rate: 71 Respiratory Rate: 14 Temperature: 98.1 F Patient is:: Drowsy, Oral/Nasal airway Stable to PACU at:: 12:00
[2020-11-02 12:08] LABS: Microscopic,Cath URINE MICROSCOPIC (MICROSCOPIC)
--- NOTE | 2020-11-02 12:18 | XR_ITS ---
PROCEDURE: XR ANKLE RT 2V CLINICAL INDICATION: ANKLE BRODSTRUM COMPARISON: CR XR ANKLE WT BEARING RT MIN 3V from 10/28/2020 FINDINGS: Fluoroscopy time: 20 seconds AP view of the foot and ankle demonstrates a metallic anchor screw at the distal fibular region. There is mild hallux valgus Other findings:None. IMPRESSION: Postsurgical change with anchor screw at the distal fibula Dictated by: Дмитрий Carrizales MD 11/04/2020 08:26 Дмитрий Carrizales MD in [place] 11/04/2020 08:26
--- NOTE | 2020-11-02 12:27 | HMH.OPNOTE ---
Date of procedure: 11/02/20 Pre-op Diagnosis:: 1. Right ankle instability 2. Right tear of anterior talofibular ligament 3. Mass of soft tissue of right lower extremity 4. Right ankle lipoma 5. Sinus tarsi syndrome of right ankle 6. Right posterior tibial tendon dysfunction (PTTD) 7. Chronic pain of right ankle 8. Gastrocnemius equinus of right lower extremity 9. Acquired pes planus and osteoarthritis 10. Type 2 diabetes mellitus with hyperglycemia, without long-term current use of insulin Post-op Diagnosis:: Same Procedure performed:: 1. Right ankle stabilization, modified Brostr?m 2. Right ankle excision of lipoma 3. Right peroneal tenosynovectomy 4. Right posterior tibial tendon debridement and repair 5. Right ankle synovectomy 6. Right application of graft 7. Application of posterior splint Surgeon:: Alicia Vega DPM FRUIT STUFFER:: Other (Chiqui Swanson) Anesthesia: GETA, regional (Right popliteal block) Estimated blood loss (mL): 20 Clinical Note:: The patient is a 54-year-old female who has a history of right ankle instability and soft tissue mass. The patient has tried immobilization, modification of shoe gear, inserts/orthotics, injections, strapping, ice, elevation, and NSAIDs. She has also tried ankle bracing, topical voltaren gel and compounding cream and physical therapy. We also discussed her sugars will need to be well controlled with a hemoglobin A1c of under 7%. We discussed procedures including: Removal of right ankle lipoma, chronic ankle instability stabilization and possible gastrocnemius recession. We discussed flatfoot recon but patient is not having arthritic pain symptoms, more related to tendon and soft tissue. We will focus on soft tissue mass excision and ankle stabilization. She understands this may resolve most of the pain. If osteoarthritis or PTTD symptoms worsen, may consider a staged fusion/reconstruction in future. After a long discussion with the patient in regards to the conservative versus surgical treatment for the tendon tear/deformity, the patient has elected to proceed with surgery because they have failed conservative treatment and continue to have pain and worsening symptoms affecting daily activities. The patient has been instructed on the planned procedure, all risk versus benefits of the procedure discussed. These include but are not limited to: bleeding, infection, nerve and blood vessel damage, need for further surgery, delay in healing of soft tissue or bone, tendon re-rupture, failure of bones to heal, non-union, mal-union, failure of the implant, prolonged pain and recovery, CPRS/RSD, DVT and anesthetic complications. No guarantees were given. All questions fully answered. The patient verbalized understanding and agreed to proceed with surgery. Written consent was obtained. The patient does not smoke. She does have a history of a blood clot to the left leg in 2007. Given her history of blood clot and obesity, recommend anticoagulation for DVT/PE prophylaxis. Necessary labs and pre-op testing ordered: CBC, CMP, Ha1c, Vitamin D, EKG, CXR, right foot and ankle x-rays, covid. Patient was granted medical and cardiac clearance per Dr. Hernandez and cardiology team, Lowell Bhatti/Dr. REINOSO. Recommend RKS. Operative findings:: Right ankle lipoma noted measuring approximately 4 x 3 cm. ATFL noted to be attenuated and torn. Ankle joint cartilage intact with some synovitis noted. The peroneal tendon had synovitis without rupture. The posterior tibial tendon was attenuated and shredded distally. There is no obvious rupture noted. There was a longitudinal tear toward the insertion measuring approximately 2 cm long with some early synovitis noted. Mild gastroc equinus improved range of motion after ATFL repair. Negative anterior drawer and talar tilt after repair. Mild flatfoot deformity noted. Previously discussed possible flatfoot reconstruction in the future as needed. Operative note:: On this date and time patient was deemed an
[2020-11-02 12:45] LABS: Appearance,Urine/Cath CLEAR (Clear); Bilirubin,Cath Negative (Negative); Blood, Urine/Cath Negative (Negative); Color,Urine/Cath YELLOW (Yellow); Glucose,Urine/Cath (UA) Negative (Negative); Ketones,Urine/Cath Negative (Negative); Leukocyte Esterase,Cath Negative (Negative); Nitrate,Cath Negative (Negative); Protein,Urine/Cath Negative (Negative); Urobilinogen,Cath 0.2 EU/dl (0.2)
--- NOTE | 2020-11-02 13:07 | SUR.OPER ---
1042-family updated at this time 1130- family updated at closing skin
[2020-11-02 13:12] LABS: POC Glucose,Bedside 143 (70-110)
--- NOTE | 2020-11-02 14:50 | HMH.PROC ---
[facility] Procedure Note Procedure Note:: Pt c/o pain in post op recovery area after multiple dose of pain medication. Discussed treatment options with pt and decision was made to redo nerve block. Risks/benefits of nerve block explained to pt and family member at bedside. U/S Guided Popliteal nerve block using 30 cc 0.5% Naropin and U/S Guided Femoral Nerve block using 20 cc 0.5% Naropin performed. Pt tolerated procedure well.
--- NOTE | 2020-11-02 14:55 | SUR.PHASEII ---
1420-dr ramey notified of patients uncontrollable pain. anesthesia notified and reporting to post op. 1430- r. imtiaz product development intern at bedside performing post op nerve block for uncontrollable pain.
[2020-11-02 15:11] LABS: RBC,Urine/Cath Occasional # /hpf (0-3); Squamous Epithelial Ur./Cath Occasional #/hpf (0-5)
[2020-11-02 17:04] LABS: POC Glucose,Bedside 117 (70-110)
--- NOTE | 2020-11-03 07:46 | P.PN_ITS ---
[facility] Anesthesia Record Part II Discharge Time: 13:10 Destination: Surgical Day Care (OP Surgery) PACU nurse assessment reviewed?: Yes Patient Condition:: Good Anesthesia Complications:: None Swallowing reflex intact?: Yes Cyanosis?: No Blood Pressure: 136/75 Pulse Rate: 63 Temperature: 98.6 F Mental Status: Alert & Oriented Pain level:: 7 Nausea and/or vomitting:: None Intake, IV Amount: 700
[2020-11-03 07:47] VITALS: BP 136/75; PULSE 63; TEMP 37
== END 2020-11-02 15:15 | disposition home or self-care (01) ==
LOC: OR 06:13
PROVIDERS: PCP Internal Medicine; Visit Provider Podiatrist
PROC: (CPT 27695; principal; 2020-11-02 07:30)
DX: M25.371 Other instability, right ankle (principal); M76.821 Posterior tibial tendinitis, right leg; M21.6X1 Other acquired deformities of right foot; M25.571 Pain in right ankle and joints of right foot; M19.071 Primary osteoarthritis, right ankle and foot; D17.23 Benign lipomatous neoplasm of skin and subcutaneous tissue of right leg; M20.21 Hallux rigidus, right foot; S93.491A Sprain of other ligament of right ankle, initial encounter; M66.271 Spontaneous rupture of extensor tendons, right ankle and foot
CPT/HCPCS: 27695; 28200; 15275; 11424; 12042; 73600; 73610; 73630; 81001; 82962; 96374; C1713; J2405; Q4211

== ENCOUNTER 2021-01-02 10:00 | Outpatient (RCR) | payer OTHER, SELFPAY ==
--- NOTE | 2020-12-26 10:15 | HMH.PTOPWND ---
Rehab Outpt Wound Evaluation Rehab OP Wound Evaluation Start: 12/26/20 09:30 Freq: Status: Active Protocol: Document 12/26/20 10:05 ROSANNE (Rec: 12/26/20 10:15 ROSANNE [id number]) Electronically Signed By Nick Donald, PT 12/26/20 10:05 Subjective/History History History Pt is 55 yowf who presents with R ankle wounds S/P post- op infection. She reports she had surgery performed on 11/02 which was successful, but treatment was complicated by the infection. She reports minimal pain with movement and only mild tenderness in the billy-wound area. She has wounds at her incisions on the medial and lateral R ankle. She has been independent with dressing changes at home. Subjective Subjective Currently no c/o pain, some numbness around incisions as well. Wound Eval Wound Right Medial Distal Ankle Wound Type Incision Is This a Chronic Wound Yes Wound Length (cm) 0.5 Wound Width (cm) 0.9 Wound Bed Appearance Beefy Red Percentage Granulated (%) 95 Wound Margins Description Well Defined Surrounding Tissue Appearance [place] Edema Degree 1+ Query Text:1+ Trace, Barely Detectable, Rebound 15-30 seconds 2+ Moderate, Slight Indentation, Rebound 10-20 seconds 3+ Deep, Deeper Indentation, Rebound > 30 seconds 4+ Very Deep, Rebound > 60 seconds Drainage Description Serosanguineous Drainage Amount Small Wound Topical Solution/Irrigant Saline Irrigant Primary Dressing Silver Dressing Comment opticell Ag Wound Secondary Dressing Type Composite,Gauze Roll/Wrap, Adhering Gauze Roll Comment optifaom gentle border SA Wound Debridement Method Sharps,Forceps,Gauze Wound Debridement Amount of Tissue Minimal Removed Dressing Change Patient Tolerance Tolerated Well Right Medial Proximal Ankle Wound Type Incision Is This a Chronic Wound Yes Wound Length (cm) 0.6 Wound Width (cm) 1.2 Wound Bed Appearance Beefy Red Percentage Granulated (%) 95 Wound Margins Description Well Defined Surrounding Tissue Appearance [place] Edema Deg
== END 2021-01-02 10:05 | disposition home or self-care (01) ==
LOC: PT 10:00
PROVIDERS: PCP Internal Medicine; Visit Provider Podiatrist
DX: Z98.890 Other specified postprocedural states (principal); T81.31XA Disruption of external operation (surgical) wound, not elsewhere classified, initial encounter
CPT/HCPCS: 97140; 97163

== ENCOUNTER → 2021-02-10 10:39 | Outpatient (CLI) | payer OTHER, SELFPAY ==
[2021-02-10 11:08] LABS: Basophils % 0.6 % (0.1-2.0); Eosinophils # 0.4 K/mm3 (0.0-0.4); Hemoglobin 12.2 g/dL (12.2-16.2); Lymphocytes # 1.1 K/mm3 (0.7-4.5); Lymphocytes % 15.8 % (10-50); Mean Corpuscular HGB Conc 33.9 g/dL (31.8-35.4); Mean Corpuscular Hemoglobin 29.6 pg (27.0-31.2); Mean Corpuscular Volume 87.3 fl (81-99); Mean Platelet Volume 7.5 fl (7.4-10.4); Monocytes # 0.3 K/mm3 (0.1-1.0); Monocytes % 4.5 % (1.7-9.3); Neutrophils # 5.3 K/mm3 (1.8-7.8); Neutrophils % 74.1 % (37.0-80.0); Platelet Count 334 K/mm3 (142-424); Red Blood Count 4.12 M/mm3 (4.20-5.40); Red Cell Distribution Width 14.7 % (11.5-17.5); White Blood Count 7.1 K/mm3 (4.8-10.8)
[2021-02-10 11:37] LABS: Chloride 104 mmol/L (98-107); Potassium 4.1 mmoL/L (3.5-5.1); Sodium 140 mmol/L (136-145)
[2021-02-10 11:40] LABS: Anion Gap 16.1 mEq/L (5-15); Blood Urea Nitrogen 16 mg/dl (7-17); Calcium 9.7 mg/dl (8.4-10.2); Carbon Dioxide 24 mmol/L (22.0-30.0); Estimated Glomerular Filt Rate 87 ml/min (>60); GFR (African American) 105 ML/MIN (>60); Glucose 249 mg/dl (74-100)
[2021-02-10 11:50] LABS: NT Pro Brain Natriuretic Pep. 54.5 pg/mL (0-125)
== END ==
PROVIDERS: Visit Provider Internal Medicine Cardiovascular Disease
DX: R06.00 Dyspnea, unspecified (principal); R42 Dizziness and giddiness; I50.32 Chronic diastolic (congestive) heart failure; R60.1 Generalized edema; E78.49 Other hyperlipidemia; I11.0 Hypertensive heart disease with heart failure; R23.1 Pallor; G47.33 Obstructive sleep apnea (adult) (pediatric)
CPT/HCPCS: 36415; 80048; 83880; 85025

== ENCOUNTER → 2021-02-13 13:33 | Outpatient (CLI) | payer OTHER, SELFPAY ==
--- NOTE | 2021-02-13 13:34 | CA_ITS ---
APPROVED REPORT EXAM: Comprehensive 2D, Doppler, and color-flow Echocardiogram Etched Circuit Processor: Aide Shi RT(R) Ht: 5 ft 7 in Wt: 266lbs BSA: 2.28 BP: 119/55 mmHg Indications: CP, murmur, edema, HTN, DM, SOB, SPARROW, hyperlipidemia, chronic diastolic heart failure, dizziness, MOISES, anemia, GERD, hx DVTm asthma, arrhythmia, obesity 2D Dimensions LVOT 1.91 cm (M/F) 1.5-2.5 LVEF (Dooley's) 58.00 % F: 54 - 74 LV Volume 111.30 mL F: 46 - 106 LV Volume Index 48.81 mL/m2 F: 29 - 61 LA Volume 42.30 mL LA Volume Index 18.55 mL/m2 (M/F) 16-34 M-Mode Dimensions RVDd 3.65 cm (0.9-2.6) LA Diam 3.86 cm (1.9-4.0) LVDd 4.42 cm (3.5-5.7) Ao Diam 2.71 cm (2.0-3.7) LVDs 3.27 cm (3.5-5.7) IVSd 1.02 cm (0.6-1.1) PWd 0.89 cm (0.6-1.1) EF (Teich) 51.20% FS 26.00% EDV (Teich) 88.60 mL ESV (Teich) 43.20 mL LV Diastology E Decel Time 213.00 (160-240 msec) E/A Ratio 1.1 MED E' 5.40 (< 7 cm/sec) E'/MED E' Ratio 17.33 (>14) LAT E' 8.30 (<10 cm/sec) E/LAT E' Ratio 11.28 (>14) Mitral Valve MV E Max Rick. 94.00 (40-130 cm/s) MV A Velocity 87.00 (40-130 cm/s) E/A Ratio 1.07 MV Decel. Time 213.00 (160-240 ms) MV PHT 62.00 ms Tricuspid Valve TR P. Velocity 239.00 cm/s RAP Estimate 10.00 mmHg RVSP 32.90 mmHg Left Ventricle Left atrium is mildly enlarged, left ventricle is normal size, mild concentric left ventricular hypertrophy, visually estimated ejection fraction 55% with no regional wall motion abnormality. Grade 1 diastolic dysfunction seen without tissue Doppler evidence of raise left atrial pressure. Right Ventricle Right atrium and right ventricle are mildly enlarged with normal contractility. Aortic Valve Aortic valve is thickened and calcified without aortic stenosis or aortic insufficiency. Mitral Valve Mitral valve is grossly normal, there is trace mitral regurgitation. Tricuspid Valve Tricuspid valve is grossly normal, there is trace tricuspid regurgitation, tricuspid regurgitation jet velocity is inadequate for calculation of the right ventricular systolic pressure. Pulmonic Valve Pulmonic valve is poorly visualized. Great Vessels Aortic root is normal size. Pericardium No significant pericardial effusion noted. Conclusion 1. Mild biatrial enlargement, normal left ventricular size, mild concentric left ventricular hypertrophy, visually estimated ejection fraction 55% with no regional wall motion abnormality, grade 1 diastolic dysfunction seen without tissue Doppler evidence of raise left atrial pressure. 2. Mildly enlarged right ventricle with normal contractility. 3. Thickened and calcified aortic valve without aortic stenosis or aortic insufficiency. 4. Trace mitral and tricuspid regurgitation. 5. No significant pericardial effusion noted, inferior vena cava is normal size with normal inspiratory collapse. Electronically signed by : Jaswant Fernandez, 02/13/2021 21:58:14
== END ==
PROVIDERS: PCP Internal Medicine; Visit Provider Internal Medicine Cardiovascular Disease
DX: R06.00 Dyspnea, unspecified (principal); R42 Dizziness and giddiness; R60.1 Generalized edema; I50.32 Chronic diastolic (congestive) heart failure; I11.0 Hypertensive heart disease with heart failure; E78.49 Other hyperlipidemia; G47.33 Obstructive sleep apnea (adult) (pediatric)
CPT/HCPCS: 93306

== ENCOUNTER 2021-02-17 15:00 | Outpatient (RCR) | payer OTHER, SELFPAY ==
--- NOTE | 2021-01-13 14:49 | HMH.PTOPEV ---
PT Outpatient Evaluation Rehab PT Outpatient Evaluation Start: 01/13/21 13:46 Freq: Status: Active Protocol: Document 01/13/21 14:36 PHOEDDY (Rec: 01/13/21 14:49 PHORNE [id number]) Electronically Signed By Nick Donald, PT 01/13/21 14:36 Outpatient Therapy Subjective History Subjective History Pt is 55 yowf who presents ~ 10 wks S/P R ankle stabilization and post tib tendon repair with continued stiffness, edema, and pain. She reports no pain at rest, but pain with WBing in her cam walker. She reports continued numbness in areas on the dorsum of the R foot and continued mild edema. She reports having difficulty returning to full WBing with gait. Chief Complaint Pain,Stiff,Swelling Symptom Type Ache Symptoms Relieved By Rest/Positioning Symptoms Aggravated By Walking Prior Functional Limitations None Current Functional Limitations Standing,Recreation Activity, Walking Symptom Description Intermittent,Activity Dependent Level of pain today (0-10) 0 Pain scale - at its worst (0-10) 9 Ankle/Foot Eval Gait Observation General Gait Pattern Observation Antalgic Gait,Decrease Stride Lngth (R),Decrease Stride Lngth (L) Palpation Tenderness right Ankle/Foot Palpation Findings Tenderness ROM Ankle/Foot Dorsiflexion w/Knee Extended 0-2 Active Range Motion (degrees) Ankle/Foot Plantar Flexion Active Range 0-32 of Motion (degrees) Ankle/Foot Eversion Active Range of 0-6 Motion (degrees) Ankle/Foot Inversion Active Range of 0-25 Motion (degrees) MMT Ankle Dorsiflexion Strength Grade 4 Good Ankle Plantarflexion Strength Grade 4 Good Foot Eversion Strength Grade 4 Good Foot Inversion Strength Grade 4 Good Outpatient Therapy Assessment Impairments Problems/Impairmments Palpation Tenderness,Impaired Range of Motion,Impaired Strength,Impaired Endurance, Impaired Gait Pattern,Impaired Walking,Impaired Standing, Impaired Work Activities, Increased Edema,Subjective C/O Pain,Impaired Self Care/Self Management
== END 2021-02-17 16:02 | disposition home or self-care (01) ==
LOC: PT 15:00
PROVIDERS: PCP Internal Medicine; Visit Provider Podiatrist
DX: M25.371 Other instability, right ankle (principal); Z98.890 Other specified postprocedural states
CPT/HCPCS: 97010; 97014; 97016; 97110; 97140; 97163; 97530; G0283

== ENCOUNTER → 2021-05-24 09:49 | Outpatient (CLI) | payer OTHER, SELFPAY ==
[2021-05-24 13:44] LABS: Blood Urea Nitrogen 19 mg/dl (7-17); Estimated Glomerular Filt Rate 74 ml/min (>60); GFR (African American) 90 ML/MIN (>60)
== END ==
PROVIDERS: Visit Provider Podiatrist
DX: Z01.818 Encounter for other preprocedural examination (principal)
CPT/HCPCS: 36415; 82565; 84520

== ENCOUNTER → 2021-05-27 07:46 | Outpatient (CLI) | payer OTHER, SELFPAY ==
--- NOTE | 2021-05-27 07:47 | MR_ITS ---
PROCEDURE INFORMATION: Exam: MR Right Lower Extremity Joint Without and With Contrast; Ankle Exam date and time: 05/27/2021 7:47 AM Age: 55 years old Clinical indication: Pain; Ankle; Right; Prior surgery; Surgery date: 6+ months; Additional info: Right ankle pain, postop pain. HX ankle surgery in October. Rolled ankle x3wks ago and has medial sided ankle pain. 23ml prohance given. TECHNIQUE: Imaging protocol: MR of the Right lower extremity without and with contrast. Exam focused on the ankle. Contrast material: PROHANCE; Contrast volume: 23 ml; Contrast route: IV; COMPARISON: MR ANKLE RT WO/W CON 12/04/2019 1:19 PM FINDINGS: Bones and cartilage: Surgical pin in the distal fibula. Multiple bits of probable postsurgical artifact overlying medial and lateral aspects of the ankle. The posterior tibialis tendon is severely degenerated with longitudinal splitting as it crosses medial aspect of the ankle. No full-thickness retracted tear. Limited associated tenosynovitis. Osteoarthritis most pronounced at the 1st MTP. Calcaneal spurring. Degenerative changes medial band of the plantar fascia proximally without acute inflammatory change or complete tear. Joint spaces: No joint effusion. LIGAMENTS: Distal tibiofibular syndesmosis: Unremarkable. No tear. Anterior talofibular ligament: Probable chronic tears of the anterior talofibular and calcaneal fibular ligaments. Medial support ligaments appear intact. Posterior talofibular ligament: Unremarkable. No tear. Calcaneofibular ligament: Unremarkable. No tear. Deltoid ligament complex: Unremarkable. No tear. TENDONS: Flexor tendons of foot: Unremarkable as visualized. Tibialis posterior tendon: Unremarkable as visualized. Peroneal tendons: Unremarkable as visualized. Extensor tendons of foot: Unremarkable as visualized. Tibialis anterior tendon: Unremarkable as visualized. Achilles tendon: Unremarkable as visualized. Tarsal canal (Sinus tarsi): Unremarkable. Normal signal of the fat. Tarsal tunnel: Unremarkable. Muscles: Unremarkable. Soft tissues: Unremarkable. Plantar fascia: See Bones and cartilage finding. IMPRESSION: 1. The posterior tibialis tendon is severely degenerated with longitudinal splitting as it crosses medial aspect of the ankle. No full-thickness retracted tear. Limited associated tenosynovitis. 2. Probable chronic tears of the anterior talofibular and calcaneal fibular ligaments. Medial support ligaments appear intact.
== END ==
PROVIDERS: PCP Internal Medicine; Visit Provider Podiatrist
DX: M25.371 Other instability, right ankle (principal); M25.471 Effusion, right ankle; M76.821 Posterior tibial tendinitis, right leg; S86.111A Strain of other muscle(s) and tendon(s) of posterior muscle group at lower leg level, right leg, initial encounter; S93.421A Sprain of deltoid ligament of right ankle, initial encounter; Z98.890 Other specified postprocedural states
CPT/HCPCS: 73723; A9576

== ENCOUNTER 2021-09-06 17:00 | Outpatient (RCR) | payer OTHER, SELFPAY ==
--- NOTE | 2021-06-22 15:09 | HMH.PTOPEV ---
PT Outpatient Evaluation Rehab PT Outpatient Evaluation Start: 06/22/21 14:25 Freq: Status: Active Protocol: Document 06/22/21 14:26 GILLIAN (Rec: 06/22/21 15:09 GILLIAN [id number]) Electronically Signed By Joon Rocha, PT 06/22/21 14:26 Outpatient Therapy Subjective History Subjective History Pt reports h/o chronic right ankle pain since 05/14/21, caused by 'I michellea tripped and tweaked it'. Pt underwent sx. in October to repair R peroneal tendon and post. tib tendon. Pt then progressed through skilled P.T., and was D/C'd w/cont. of HEP. Pt then sustained re-injury, MRI revealing new damage to post. tib tendon. Pt this pm reports mostly medial aspect right ankle pain, intermittent lateral aspect R ankle pain, and global right ankle swelling. Chief Complaint Pain,Stiff,Swelling,Weakness Symptom Type Ache,Dull Symptoms Relieved By Rest/Positioning,Ice Symptoms Aggravated By Standing,Physical Activity, Walking Prior Functional Limitations Standing,Walking,Stairs Current Functional Limitations Standing,Walking,Stairs Symptom Description Constant but Variable Level of pain today (0-10) 4 Pain scale - at its best (0-10) 3 Pain scale - at its worst (0-10) 6 Ankle/Foot Eval Gait Observation General Gait Pattern Observation Antalgic Gait Assistive Device Ambulation Assistive Device None Palpation Tenderness right Ankle/Foot Palpation Findings Tenderness Ankle/Foot Palpation Overall Comment peroneal tendon 2/4, post. tib tendon 3-4/4 ROM Ankle/Foot Dorsiflexion w/Knee Extended 0-14 Active Range Motion (degrees) Ankle/Foot Plantar Flexion Active Range 0-33 of Motion (degrees) Ankle/Foot Eversion Active Range of 0-12 Motion (degrees) Ankle/Foot Inversion Active Range of 0-10 Motion (degrees) MMT Ankle Dorsiflexion Strength Grade 4 Good Ankle Plantarflexion Strength Grade 4 Good Foot Eversion Strength Grade 4- Good- Foot Inversion Strength Grade 3+ Fair+ Outpatient Therapy Assessment Impairments Problems/Impairmments Palpation Tenderness,Impaired Range of Motion,Impaired Strength,Impaired Gait Pattern ,Impaired Walking,Impaired
--- NOTE | 2021-07-28 15:25 | HMH.RHREAS ---
Rehab Reassessment Rehab OP Re-assessment Start: 07/28/21 15:02 Freq: Status: Active Protocol: Document 07/28/21 15:02 NICOLÁSFRANCK (Rec: 07/28/21 15:24 NICOLÁSFRANCK [id number]) Electronically Signed By Joon Rocha, PT 07/28/21 15:02 Rehab Re-assessment Subjective Subjective Pt reports 2-3/10 right ankle pain on VAS w/activity, and feels 75% better overall since I eval. 'It feels stronger, I 'm able to stay up on it a bit longer (30min), but, it's still limited in turning in ( inversion).' Objective Objective Notes MMT: RIGHT ANKLE DF 5/5, PF 4+ -5/5, INV 4/5, EVR 4/5 AROM: RIGHT ANKLE DF 0-15, PF 0-35, EVR 0-13, INV 0-15 TTP: RIGHT ANKLE POST. TIB 3/4 , PERONEAL 2-3/4 GAIT: WFL ON LEVEL TERRAIN, ENDURANCE ~30MIN, NO AD Assessment Progress Assessment Progressing as Expected Assessment Notes IMPROVED STRENGTH, ROM, AND GAIT, DEFICITS IN TTP REMAIN Patient goals met STG'S 01/20 LTG'S 08/26 Goals Not Met STG'S 08/23, LTG'S 04/25 Plan Plan Pt to continue w/skilled P.T. to make further improvements in right ankle TTP, strength, and ROM to allow for optimal functional return to work related and community-based activites Frequency of Therapy 2-3x/wk Duration of therapy 4-6wks Time and Billing Re-Eval Time 15 Re-Eval Billing Units 1 PHYSICIAN CERTIFICATION: I certify the specified therapy services for Radha Wrad are required, authorized, and reviewed every 30 days.
--- NOTE | 2021-09-01 10:00 | HMH.RHREAS ---
Rehab Reassessment Rehab OP Re-assessment Start: 07/28/21 15:02 Freq: Status: Active Protocol: Document 09/01/21 08:59 GILLIAN (Rec: 09/01/21 10:00 GILLIAN [id number]) Electronically Signed By Joon Rocha, PT 09/01/21 08:59 Rehab Re-assessment Subjective Subjective Pt reports 0/10 right ankle pain this am on VAS, and feels 85% better overall since I eval, however, still reports medial aspect right ankle discomfort with inversion and with going down steps. Objective Objective Notes MMT: RIGHT ANKLE DF 5/5, PF 5/ 5, INV 4-4+/5, EVR 4-4+/5 AROM: RIGHT ANKLE DF 0-14, PF 0-39, EVR 0-18, INV 0-26 TTP: RIGHT ANKLE POST. TIB 2-3 /4, PERONEAL 1-2/4 GAIT: WFL ON LEVEL TERRAIN, ENDURANCE ~60MIN, NO AD Assessment Progress Assessment Progressing as Expected Assessment Notes improved ROM, strength, and TTP Patient goals met STG'S 02/20 LTG'S 01/23 Goals Not Met STG'S 07/23, LTG'S 11/23 Plan Plan Pt to continue w/skilled P.T. to make further improvements in right ankle TTP, strength, and ROM to allow for optimal functional return to work related and community-based activites Frequency of Therapy 2-3x/wk Duration of therapy 2-4wks Time and Billing Re-Eval Time 15 Re-Eval Billing Units 1 PHYSICIAN CERTIFICATION: I certify the specified therapy services for Radha Bria Dahlia Ward are required, authorized, and reviewed every 30 days.
== END 2021-09-06 17:05 | disposition home or self-care (01) ==
LOC: PT 17:00
PROVIDERS: PCP Internal Medicine; Visit Provider Podiatrist
DX: M76.821 Posterior tibial tendinitis, right leg (principal); M25.471 Effusion, right ankle; M25.371 Other instability, right ankle; S86.111D Strain of other muscle(s) and tendon(s) of posterior muscle group at lower leg level, right leg, subsequent encounter
CPT/HCPCS: 97010; 97014; 97016; 97033; 97035; 97110; 97112; 97140; 97163; 97164; G0283

== ENCOUNTER → 2022-03-26 16:53 | Outpatient (CLI) | payer OTHER, SELFPAY ==
--- NOTE | 2022-03-26 17:00 | XR_ITS ---
PROCEDURE INFORMATION: Exam: XR Left Hip Exam date and time: 03/26/2022 5:01 PM Age: 56 years old Clinical indication: Hip pain; Left hip; Patient HX: Pain when walking, pain when raising leg, no known injury; Additional info: Lt groin/ hip pain TECHNIQUE: Imaging protocol: Radiologic exam of the Left hip. Views: 2 or 3 views hip with pelvis when performed. COMPARISON: MR PELVIS WO/W CON 08/04/2020 11:01 AM FINDINGS: Bones/joints: Unremarkable. No acute fracture. Soft tissues: Unremarkable. IMPRESSION: No acute findings.
== END ==
PROVIDERS: PCP Internal Medicine; Visit Provider Internal Medicine
DX: R10.2 Pelvic and perineal pain (principal); M25.552 Pain in left hip
CPT/HCPCS: 73502

== ENCOUNTER → 2022-03-27 16:30 | Outpatient (CLI) | payer OTHER, SELFPAY ==
--- NOTE | 2022-03-27 | CA_ITS ---
FINAL REPORT TECHNIQUE: Color Doppler, duplex Doppler and compression sonography of the left lower extremity deep venous systems was performed. CLINICAL HISTORY: Patient states she is having pain in her left groin region. She denies trauma. She said when the doctor examined the area and applied pressure pain shot down her leg. 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 She takes 81 mg ASA daily. HTN, HLD, DM. FINDINGS: There is no evidence of deep venous thrombosis from the level of the groin to the calf. The veins are patent and compressible. IMPRESSION: No evidence of deep venous thrombosis left lower extremity. Reviewed, Interpreted and Dictated by Sourav Padilla III, MD Transcribed by Oneyda Del Rio Authenticated and [facility]
== END ==
PROVIDERS: PCP Internal Medicine; Visit Provider Internal Medicine
DX: M79.652 Pain in left thigh (principal)
CPT/HCPCS: 93971

== ENCOUNTER → 2022-04-29 23:34 | Outpatient (CLI) | payer OTHER, SELFPAY | PROVIDERS: PCP Internal Medicine; Visit Provider Surgery | DX: Z01.812 Encounter for preprocedural laboratory examination (principal); Z20.822 Contact with and (suspected) exposure to COVID-19 ==

== ENCOUNTER 2022-05-01 08:57 | Day surgery (SDC) | payer OTHER, SELFPAY ==
--- NOTE | 2022-05-01 09:20 | P.PN_ITS ---
[facility] Medical History Chest pain Chest pain Diastolic heart failure Dizziness SPARROW (dyspnea on exertion) Edema Generalized anxiety disorder HLD (hyperlipidemia) HTN (hypertension) Major depressive disorder MOISES (obstructive sleep apnea) Pallor SOB (shortness of breath) Surgical History S/P partial hysterectomy Family History Mother Hypertension Diabetes Coronary artery disease Social History Smoking Status: Never smoker alcohol intake: current counseling given: No counseling provided: none substance use type: denies use current occupational status: employed Travel in the last 8 weeks: None household members: spouse housing: house marital status: number of children: 0 education level: college current occupation: [employer] current occupational exposures/hazards: No caffeine: Yes physical activity: none [facility] Anesthesia Checklist Patient Identification Patient Identification: Arm Band and Verbal (Name & ) Structural Data Admitted From: Home Planned Operative Procedure/s: EGD/Colonoscopy Consent for Planned Operative Procedure(s) Verified: Yes NPO Status Verified Time NPO: 05:00 Additional verifications Anesthesia Reactions: Yes (o2 dropped and swelling) Hx Blood Transfusions: No Blood Transfusion Reaction: No Airway Assessment C-Spine Mobility Assessed: Yes TMJ Mobility Assessed: Yes Dentition: Good Dentition Neurological Assessment Level of Consciousness: Awake Hx Seizures: No Numbness or tingling in extremities: No Anesthesia Plan Anesthesia Risk discussed: Yes Anesthesia Plan: Verified ASA Class: III Anesthesia Type: MAC
[2022-05-01 09:21] VITALS: BMI 41.0
[2022-05-01 09:23] VITALS: BP 152/61; PULSE 63; RESP 18; TEMP 36.4; O2SAT 95
[2022-05-01 09:23] LABS: POC Glucose,Bedside 125 (70-110)
[2022-05-01 09:38] VITALS: O2SAT 95
[2022-05-01 10:38] VITALS: BP 134/81; PULSE 94; RESP 18; TEMP 36; O2SAT 82
--- NOTE | 2022-05-01 10:38 | HMH.SCOPE ---
Procedure: Date: 05/01/22 Patient Date of :: 1965 Procedure Performed:: Esophagogastroduodenoscopy with polypectomy Colonoscopy with polypectomy Indications:: Gastric polyps Screening colonoscopy Performing Provider:: Juvenal Thornton MD Referring Provider:: . Sedation:: Monitored anesthesia care Procedure:: After informed consent was obtained the patient was taken to the endoscopy suite. Sedation ensued after the patient was transferred to the left lateral decubitus position. Pulse, blood pressure, and oxygen saturation were monitored throughout the procedure. The endoscope was advanced beyond the duodenal bulb. Retroflexion within the gastric lumen was accomplished. The gastroscope was carefully removed. Digital rectal exam revealed no significant abnormality. The colonoscope was placed in position. The entire colon was evaluated. The colonoscope was carefully removed and the patient was transferred to recovery in stable condition. Please see findings and specimens below for detail. Findings:: Unchanged gastric body polyps Bowel preparation moderate Fairly severe lack of relaxation Moderate spasticity Hemorrhoidal cushions/tags Right colon polyp Specimens:: Mid/distal gastric body polyps (hot snare) Right colon polyp (cold snare) Recommendations:: Timing of repeat colonoscopy is pending pathology but likely between 3-5 years Likely repeat EGD in 1-2 years secondary to overall burden of polyps and need for ongoing sampling Complications:: No immediate Estimated blood obtained (mL): 1
[2022-05-01 10:48] VITALS: BP 144/73; PULSE 77; RESP 19; O2SAT 96
[2022-05-01 10:58] VITALS: BP 125/71; PULSE 74; RESP 18; O2SAT 91
[2022-05-01 11:08] VITALS: BP 134/85; PULSE 73; RESP 16; TEMP 36.6; O2SAT 96
== END 2022-05-01 11:08 | disposition home or self-care (01) ==
PROVIDERS: PCP Internal Medicine; Visit Provider Surgery
PROC: 0DJD8ZZ Inspection of Lower Intestinal Tract, Via Natural or Artificial Opening Endoscopic (ICD-10-PCS; CPT 45385; principal; 2022-05-01 10:00)
DX: Z12.11 Encounter for screening for malignant neoplasm of colon (principal); K63.5 Polyp of colon; K31.7 Polyp of stomach and duodenum; Z79.899 Other long term (current) drug therapy; E11.9 Type 2 diabetes mellitus without complications
CPT/HCPCS: 45385; 43251; 82962; J1610; J2704

== ENCOUNTER → 2022-07-19 10:32 | Outpatient (CLI) | payer OTHER, SELFPAY ==
--- NOTE | 2022-07-19 10:42 | CT_ITS ---
FINAL REPORT TECHNIQUE: Thin section axial CT images of the facial bones and sinuses were obtained without contrast. Coronal reformatted images were also obtained. This study was performed with techniques to keep radiation doses as low as reasonably achievable, (ALARA). Individualized dose reduction techniques using automated exposure control or adjustment of mA and/or kV according to the patient's size were employed. CLINICAL HISTORY: L PARATIDITIS FINDINGS: CT FACIAL BONES The parotids and submandibular glands are normal. No fluid collection or significant inflammatory change is seen. The paranasal sinuses are clear. The mastoid air cells are unremarkable. IMPRESSION: No evidence of sinusitis, facial cellulitis or silo adenitis. Reviewed, Interpreted and Dictated by Nolan Singh MD Transcribed by Lilibeth Alfonso Authenticated and [facility]
== END ==
PROVIDERS: PCP Internal Medicine; Visit Provider Internal Medicine
DX: K11.8 Other diseases of salivary glands (principal)
CPT/HCPCS: 70486

== ENCOUNTER → 2022-09-21 10:07 | Outpatient (CLI) | payer OTHER, SELFPAY ==
[2022-09-21 11:16] LABS: Basophils % 0.7 % (0.1-2.0); Eosinophils # 0.3 K/mm3 (0.0-0.4); Eosinophils % 4.4 % (0.1-12.0); Hematocrit 41.1 % (37.0-47.0); Hemoglobin 13.2 g/dL (12.2-16.2); Lymphocytes % 16.5 % (10-50); Mean Corpuscular HGB Conc 32.1 g/dL (31.8-35.4); Mean Corpuscular Hemoglobin 27.7 pg (27.0-31.2); Mean Corpuscular Volume 86.2 fl (81-99); Mean Platelet Volume 7.8 fl (7.4-10.4); Monocytes # 0.4 K/mm3 (0.1-1.0); Monocytes % 6.1 % (1.7-9.3); Neutrophils # 4.6 K/mm3 (1.8-7.8); Neutrophils % 72.3 % (37.0-80.0); Platelet Count 312 K/mm3 (142-424); Red Blood Count 4.77 M/mm3 (4.20-5.40); Red Cell Distribution Width 16.4 % (11.5-17.5); White Blood Count 6.3 K/mm3 (4.8-10.8)
[2022-09-21 11:32] LABS: Chloride 106 mmol/L (98-107)
[2022-09-21 11:33] LABS: Sodium 141 mmol/L (136-145)
[2022-09-21 11:35] LABS: Alanine Aminotransferase 23 U/L (12-78); Aspartate Amino Transferase 23 U/L (14-36); Bilirubin,Unconjugated 0.3 mg/dL (0.0-1.1); Blood Urea Nitrogen 15 mg/dl (7-17); Carbon Dioxide 24 mmol/L (22.0-30.0); Cholesterol 250 mg/dl (140-200); Estimated Glomerular Filt Rate 74 ml/min (>60); GFR (African American) 90 ML/MIN (>60); Triglycerides 305 mg/dl (30-150); VLDL Cholesterol 61 mg/dL (0-40)
[2022-09-21 11:36] LABS: Albumin Level 4.5 g/dl (3.5-5.0); Alkaline Phosphatase 145 U/L (38-126); Bilirubin,Direct 0.2 mg/dl (0.0-0.4); Bilirubin,Indirect 0.2 mg/dL (0.0-0.9); Bilirubin,Total 0.4 mg/dl (0.2-1.3); Chol/HDL Ratio 5.7 (1-3.5); Glucose 161 mg/dl (74-100); HDL Cholesterol 44 mg/dl (40-60); Total Protein,Serum 7.4 g/dl (6.3-8.2)
[2022-09-21 12:05] LABS: Thyroid Stimulating Hormone 0.98 uIU/mL (0.465-4.68)
[2022-09-21 12:17] LABS: Free T4 (Free Thyroxine) 1.08 ng/dl (0.78-2.19)
== END ==
PROVIDERS: PCP Internal Medicine; Visit Provider Physician Assistant
DX: R06.09 Other forms of dyspnea (principal); R42 Dizziness and giddiness; R60.1 Generalized edema; I11.0 Hypertensive heart disease with heart failure; I50.32 Chronic diastolic (congestive) heart failure; I95.1 Orthostatic hypotension; E78.49 Other hyperlipidemia
CPT/HCPCS: 36415; 80048; 80061; 80076; 83735; 84439; 84443; 85025

== ENCOUNTER → 2022-10-15 15:22 | Outpatient (CLI) | payer OTHER, SELFPAY ==
--- NOTE | 2022-10-15 15:27 | MR_ITS ---
PROCEDURE INFORMATION: Exam: MR Face Without and With Contrast Exam date and time: 10/15/2022 3:33 PM Age: 57 years old Clinical indication: Jaw pain; Additional info: Left sided jaw swelling and pain. No injury or trauma. TECHNIQUE: Imaging protocol: Magnetic resonance imaging of the face without and with contrast. Contrast material: PROHANCE; Contrast volume: 23 ml; Contrast route: IV; COMPARISON: MR ANGIO NECK WO CON 04/15/2020 8:46 AM FINDINGS: Paranasal sinuses: No fluid levels. Orbital cavities: Orbits are normal. Globes are unremarkable. Nasopharynx: Unremarkable. Pharynx: Unremarkable. Larynx: Visualized larynx is unremarkable. Salivary glands: Visualized submandibular and parotid glands are unremarkable. Lymph nodes: No lymphadenopathy. Soft tissues: Unremarkable. Bones/joints: Unremarkable. IMPRESSION: Unremarkable MR face.
== END ==
PROVIDERS: PCP Internal Medicine; Visit Provider Student in an Organized Health Care Education/Training Program
DX: G43.909 Migraine, unspecified, not intractable, without status migrainosus (principal); H92.02 Otalgia, left ear; H05.53 Retained (old) foreign body following penetrating wound of bilateral orbits
CPT/HCPCS: 70543; A9576

== ENCOUNTER → 2023-02-14 12:24 | Outpatient (CLI) | payer OTHER, SELFPAY ==
[2023-02-14 14:14] LABS: Alanine Aminotransferase 26 U/L (12-78); Albumin Level 4.6 g/dl (3.5-5.0); Albumin/Globulin Ratio 1.5 (1.1-1.8); Alkaline Phosphatase 145 U/L (38-126); Anion Gap 16.1 mEq/L (5-15); Aspartate Amino Transferase 25 U/L (14-36); Bilirubin,Total 0.3 mg/dl (0.2-1.3); Blood Urea Nitrogen 18 mg/dl (7-17); Calcium 10.1 mg/dl (8.4-10.2); Carbon Dioxide 25 mmol/L (22.0-30.0); Chloride 106 mmol/L (98-107); Estimated Glomerular Filt Rate 74 ml/min (>60); GFR (African American) 89 ML/MIN (>60); Glucose 194 mg/dl (74-100); Potassium 4.1 mmoL/L (3.5-5.1); Sodium 143 mmol/L (136-145); Total Protein,Serum 7.6 g/dl (6.3-8.2)
== END ==
PROVIDERS: PCP Internal Medicine; Visit Provider Nurse Practitioner Psychiatric/Mental Health
DX: Z00.00 Encounter for general adult medical examination without abnormal findings (principal); Z79.899 Other long term (current) drug therapy
CPT/HCPCS: 80053

== ENCOUNTER → 2023-03-19 14:22 | Outpatient (CLI) | payer OTHER, SELFPAY | PROVIDERS: PCP Internal Medicine; Visit Provider Specialist | DX: G47.33 Obstructive sleep apnea (adult) (pediatric) (principal) | CPT/HCPCS: 94762 ==

== ENCOUNTER → 2023-04-04 06:04 | Outpatient (CLI) | payer OTHER, SELFPAY ==
--- NOTE | 2023-04-04 | CA_ITS ---
APPROVED REPORT Exam: Exercise Treadmill Technologist: Bridgette Ruiz, Ht: 5 ft 7 in Wt: 260 lbs BSA: 2.26 m2 HR: 65 bpm BP: 126/58 mmHg Rhythm: SR Medical History Medical History: HTN, , Hyperlipidemia Medications: Lorazepam,,,,, Omeprazole,,,,, Aspirin,,,,, Metformin,,,,, Zoloft,,,,, Farxiga,,,,, SyMBICORT,,,,, Albuterol,,,,, Januvia,,,,, Vit C,,,,, Telmisartan,,,,, BisOPROLOL Fumarate,,,,, Allergies: ERYTHROMYCIN BASE, ROSUVASTATIN, NIACIN, ATORVASTATIN, ERFUGLIFLOZIN, LATEX Cardiac Risk Factors: HTN, Hyperlipidemia, FHX of CAD Stress Test Details Test: Jarret HR Resting HR: 72 bpm Max Heart Rate (APMHR): 163 bpm Max HR Achieved: 153 bpm Target HR (85% APMHR): 139 bpm % of APMHR: 94 Recovery HR: 84 bpm HR response to stress: Normal HR response to stress BP Resting BP: 110.0/64 mmHg Max BP: 158/86 mmHg Recovery BP: 134.0/58.0 mmHg BP response to stress: Normal blood pressure response to stress. ECG Resting ECG: Sinus rhythm, no ST changes Stress EC mm ST depression Arrhythmia: None Recovery ECG: Return to baseline within 3 minutes of recovery Recovery Arrhythmia: None Clinical Exercise duration: 06:32 min Highest Stage Achieved: Stage 3: 3.4 mph at 14% grade. Exercise capacity: 7.0 METs Overall Exercise Capacity for Age: Poor Stress ECG Conclusion The patient was able to exercise for a total of 6 minutes, 42 seconds. She achieved a total of 7 METS. She has poor exercise capacity compared to age and sex matched peers. She has normal HR and BP response to exercise. MAX HR: 153 % OF PM: 94 MAX BP: 158/86 METS: 7.0 TEST STOPPED DUE TO: CHEST PAIN/PRESSURE/SOB [address] DEPRESSION CONCLUSION POOR EXERCISE CAPACITY. POSSIBLE ISCHEMIA PRESENT ON ECG STRESS TEST. Test Summary REST . . . . . . . Sitting REST . . . . . . . Standing REST 03:48 0.0 0.0 72 . 110/ 64 . . Stage 1 01:00 10.0 1.7 97 . . . . Stage 1 02:00 10.0 1.7 105 . . . . Stage 1 03:00 10.0 1.7 112 . 130/ 80 . . Stage 2 01:00 12.0 2.5 123 . . . . Stage 2 02:00 12.0 2.5 136 . . . . Stage 2 03:00 12.0 2.5 140 . 158/ 86 . . Stage 3 . . . . . . . Myoview Injected Stage 3 00:32 14.0 3.4 150 . . . Stop exercise at 06:32 RECOVERY 01:00 0.0 0.0 124 . . . . RECOVERY 02:00 0.0 0.0 86 . 131/ 79 . . RECOVERY 03:00 0.0 0.0 81 . 149/ 74 . . RECOVERY 04:00 0.0 0.0 77 . 149/ 74 . . RECOVERY 05:00 0.0 0.0 85 . 134/ 58 . . RECOVERY 05:04 0.0 0.0 80 . 134/ 58 . . Electronically signed by : Grisel Cheema MD 04/12/2023 19:40:14
--- NOTE | 2023-04-04 06:50 | NM_ITS ---
APPROVED REPORT Exam: Nuclear Stress Test Indication: chest pain..soa..palpitations..fatigue..high cholesterol..family hx Patient Location: Outpatient Stress Tech: Bridgette Ruiz CO Tech:Leeanne KingringtonPEDRO LUIS RT(R)(N) Ht: 5 ft 6 in Wt: 260 lbs Bra Size: 44c HR: 72 bpm BP: 110/64 mmHg BSA: 2.24 m2 Rhythm: NSR TID: 1.22 BMI: 41.9 History: chest pain..soa..palpitations..fatigue..high cholesterol..family hx Procedure: Patient exercised on Jarret protocol 6:32 minutes and sec, resting heart rate 72 bpm, resting blood pressure 110/64 mmHg, with exercise maximum heart rate achived was 153 bpm which is 94 % of the maximum predicted heart rate and blood pressure was 158/86 mmHg. Test was stopped due to fatigue. Patient has poor exercise capacity, achieved 7.0 METs of workload on treadmill, the blood pressure response to exercise was normal. Cardiac Stress and Resting SPECT Images: Cardiac Stress and Resting SPECT images were obtained using technetium 99m Myoview 30.1 mCi stress and 10.98 mCi at rest. Resting and stress imaging in both supine and prone positions demonstrate no evidence of fixed or reversible perfusion defects. There is increased transient ischemic dilatation ratio (TID 1.22), suggestive of possible multivessel disease or balanced ischemia. Gated imaging demonstrates normal global and regional LV systolic function. LVEF is > 75%. Conclusion: No evidence of fixed or reversible perfusion defects. Increased transient ischemic dilatation ratio (TID 1.22), suggestive of possible multivessel disease or balanced ischemia. Gated imaging demonstrates normal global and regional LV systolic function. LVEF is > 75%. Electronically signed by : Grisel Cheema MD 04/12/2023 19:42:14
--- NOTE | 2023-04-04 07:21 | CA_ITS ---
APPROVED REPORT EXAM: Comprehensive 2D, Doppler, and color-flow Echocardiogram Computer Operations Specialist: Sravani Lan CRT Ht: 5 ft 7 in Wt: 260lbs BSA: 2.26 BP: 121/75 mmHg Indications: Chest Pain, COPD, Murmur, Shortness of Breath, Diabetes, Obesity, Peripheral Edema, Hyperlipidemia, Hypertension/HDD, MOISES, GERD 2D Dimensions LVOT 1.97 cm (M/F) 1.5-2.5 LA Volume 26.70 mL LA Volume Index 11.50 mL/m2 (M/F) 16-34 M-Mode Dimensions RVDd 3.59 cm (0.9-2.6) LA Diam 3.25 cm (1.9-4.0) LVDd 4.52 cm (3.5-5.7) Ao Diam 3.78 cm (2.0-3.7) LVDs 2.80 cm (3.5-5.7) IVSd 1.43 cm (0.6-1.1) PWd 0.57 cm (0.6-1.1) EF (Teich) 68.30% FS 38.10% EDV (Teich) 93.40 mL TAPSE 3.05 (<1.7) ESV (Teich) 29.60 mL LV Diastology E Decel Time 150.00 (160-240 msec) E/A Ratio 1.05 MED E' 6.80 (< 7 cm/sec) MED A' 9.20 cm/s E'/MED E' Ratio 14.69 (>14) LAT E' 8.60 (<10 cm/sec) LAT A' 14.40 cm/s E/LAT E' Ratio 11.62 (>14) Aortic Valve AO Peak GR. 10.60 mmHg Mitral Valve MV E Max Rick. 100.00 (40-130 cm/s) MV A Velocity 95.00 (40-130 cm/s) E/A Ratio 1.05 MV Decel. Time 150.00 (160-240 ms) MV PHT 44.00 ms Pulmonary Valve PV Peak Velocity 165.00 (50-150 cm/s) Tricuspid Valve TR P. Velocity 243.00 cm/s RAP Estimate 10.00 mmHg RVSP 33.60 mmHg Left Ventricle The left ventricle is normal size. The left ventricular systolic function is normal. The left ventricular ejection fraction is within the normal range. There is normal left ventricular wall thickness. There is normal LV segmental wall motion. The left ventricular diastolic function is normal. LVEF is 55-60%. Right Ventricle The right ventricle is normal size. The right ventricular systolic function is normal. Atria The left atrium size is normal. The right atrium size is normal. There is no Doppler evidence of interatrial shunt. Aortic Valve The aortic valve is mildly thickened. There is no aortic valvular stenosis. No aortic regurgitation is present. Mitral Valve The mitral valve is normal in structure. No evidence of mitral valve stenosis. Trace mitral regurgitation. Tricuspid Valve The tricuspid valve leaflets are thin and pliable. Trace tricuspid regurgitation. RVSP is normal. Pulmonic Valve The pulmonary valve is normal in structure. Trace pulmonic regurgitation. Great Vessels The aortic root is normal in size. The ascending aorta is normal in size. IVC is normal in size and collapses >50% with inspiration. Pericardium There is no pericardial effusion. Other Information Study Quality: Technically Difficult Conclusion This was a technically difficult study in the setting of poor acoustic windows. Normal biventricular systolic function. No significant valvular stenosis or regurgitation. Electronically signed by : Grisel Cheema MD 04/06/2023 20:08:44
== END ==
PROVIDERS: PCP Internal Medicine; Visit Provider Internal Medicine
DX: R06.09 Other forms of dyspnea (principal); R07.9 Chest pain, unspecified; E78.5 Hyperlipidemia, unspecified; I10 Essential (primary) hypertension; I50.30 Unspecified diastolic (congestive) heart failure; I95.1 Orthostatic hypotension; R60.9 Edema, unspecified; G47.33 Obstructive sleep apnea (adult) (pediatric)
CPT/HCPCS: 78452; 93017; 93306; A9502

== ENCOUNTER 2023-05-01 07:55 | Day surgery (SDC) | payer OTHER, SELFPAY ==
[2023-05-01] VITALS (12 sets, daily range): BP systolic 93–140; BP diastolic 52–83; PULSE 56–74; RESP 17–20; O2SAT 90–99; BMI 40.8
--- NOTE | 2023-05-01 07:07 | IR_ITS ---
APPROVED REPORT Patient Location: Outpatient PROCEDURES Left heart catheterization Left ventriculogram Selective coronary angiogram INDICATION New onset angina pectoris, Abnormal Myoview Informed consent was obtained prior to the procedure. COMPLICATIONS None Estimated Blood Loss: Less than 10 mls TECHNIQUE One percent lidocaine used to anesthetize the right anterior aspect of the wrist. The right radial artery was accessed via the Seldinger technique. A 6 Bengali sheath was placed in the right radial artery. 2.5 mg of Verapamil, 800 mcg of nitroglycerin, 1mg Lidocaine and 5000 U Heparin were given through the arterial sheath. The papa catheter was also used to perform left heart catheterization, left ventriculogram and selective coronary angiogram. At the end of the procedure the sheath was removed good hemostasis was achieved using Traclet band, patient was transferred to the postop holding area in stable condition. ANGIOGRAPHIC RESULTS The left main artery Normal The left anterior descending artery Normal The circumflex artery Normal The right coronary artery Dominant normal The HOFF ventriculogram reveals Normal 65% The left ventricular end-diastolic pressure 10 mmHg IMPRESSION Normal coronary arteries Normal ejection fraction Normal left ventricular end-diastolic pressure PLAN 1. Evaluation of noncardiac symptoms Electronically signed by : Mickey Raman MD 05/01/2023 12:23:35
[2023-05-01 09:27] LABS: Basophils % 0.6 % (0.1-2.0); Chloride 107 mmol/L (98-107); Eosinophils # 0.8 K/mm3 (0.0-0.4); Eosinophils % 11.3 % (0.1-12.0); Hematocrit 42.5 % (37.0-47.0); Hemoglobin 14.3 g/dL (12.2-16.2); Lymphocytes # 1.1 K/mm3 (0.7-4.5); Lymphocytes % 15.6 % (10-50); Mean Corpuscular HGB Conc 33.6 g/dL (31.8-35.4); Mean Corpuscular Hemoglobin 29.5 pg (27.0-31.2); Mean Corpuscular Volume 87.8 fl (81-99); Mean Platelet Volume 8.2 fl (7.4-10.4); Monocytes # 0.3 K/mm3 (0.1-1.0); Monocytes % 5.1 % (1.7-9.3); Neutrophils # 4.6 K/mm3 (1.8-7.8); Neutrophils % 67.4 % (37.0-80.0); Platelet Count 249 K/mm3 (142-424); Red Blood Count 4.84 M/mm3 (4.20-5.40); Red Cell Distribution Width 16.1 % (11.5-17.5); Sodium 142 mmol/L (136-145); White Blood Count 6.8 K/mm3 (4.8-10.8)
[2023-05-01 09:28] LABS: Potassium 3.9 mmoL/L (3.5-5.1)
[2023-05-01 09:31] LABS: Anion Gap 14.9 mEq/L (5-15); Blood Urea Nitrogen 16 mg/dl (7-17); Calcium 9.3 mg/dl (8.4-10.2); Carbon Dioxide 24 mmol/L (22.0-30.0); Creatinine Clearance Estimated 145 mL/min (50-200); Estimated Glomerular Filt Rate 74 ml/min (>60); GFR (African American) 89 ML/MIN (>60); Glucose 177 mg/dl (74-100)
== END 2023-05-01 14:28 | disposition home or self-care (01) ==
PROVIDERS: PCP Internal Medicine; Visit Provider Internal Medicine
DX: I20.89 Other forms of angina pectoris (principal); E78.5 Hyperlipidemia, unspecified; I11.0 Hypertensive heart disease with heart failure; G47.33 Obstructive sleep apnea (adult) (pediatric); I50.30 Unspecified diastolic (congestive) heart failure; I95.1 Orthostatic hypotension; R94.31 Abnormal electrocardiogram [ECG] [EKG]
CPT/HCPCS: 80048; 85025; 93458; 99152; 99153; C1725; C1769; J1644; Q9967

== ENCOUNTER → 2023-05-08 14:49 | Outpatient (CLI) | payer OTHER, SELFPAY ==
--- NOTE | 2023-05-08 14:53 | CA_ITS ---
FINAL REPORT TECHNIQUE: Color Doppler imaging of the right upper extremity were obtained with attention to the radial artery. CLINICAL HISTORY: M79.601 - Pain in right arm post cath 05/01/23 with right wrist access. FINDINGS: Limited images of the right radial artery were obtained. There is thrombus in the right radial artery. There is no evidence of pseudoaneurysm or hematoma. IMPRESSION: Thrombus of the right radial artery. Reviewed, Interpreted and Dictated by Sourav Padilla III, MD Transcribed by Thuy Madden Authenticated and [facility]
== END ==
PROVIDERS: PCP Internal Medicine; Visit Provider Nurse Practitioner
DX: M79.601 Pain in right arm (principal)
CPT/HCPCS: 93931

== ENCOUNTER → 2023-06-05 08:11 | Outpatient (CLI) | payer OTHER, SELFPAY ==
[2023-06-05 17:01] LABS: Hemoglobin A1C 8.1 % (4.0-6.0)
== END ==
PROVIDERS: PCP Internal Medicine; Visit Provider Specialist
DX: E11.65 Type 2 diabetes mellitus with hyperglycemia (principal); Z79.84 Long term (current) use of oral hypoglycemic drugs
CPT/HCPCS: 36415; 83036

== ENCOUNTER → 2023-06-11 15:46 | Outpatient (CLI) | payer OTHER, SELFPAY ==
--- NOTE | 2023-06-11 15:59 | CA_ITS ---
FINAL REPORT CLINICAL HISTORY: hx of radial artery thrombosis post cath(05/01), arterial scan 05/08 showed acute radial artery thrombus. Patient was prescribed Xarelto x 2 weeks. Recently stopped, recheck today. COMPARISON: 05/08/2023 FINDINGS: ULTRASOUND RIGHT RADIAL ARTERY: Ultrasound examination of the right radial artery is performed and compared to a prior ultrasound of May 01. The prior ultrasound revealed radial artery thrombus after cardiac catheterization. Today's ultrasound reveals that there is remaining thrombus in the radial artery, with no continuous patent channel identified. IMPRESSION: Thrombus remains in the right radial artery as seen on the prior ultrasound of May 01. There is no continuous patent channel identified. Reviewed, Interpreted and Dictated by Jimmy Green MD Transcribed by Stephanie Clayton Authenticated and [facility]
== END ==
PROVIDERS: PCP Internal Medicine; Visit Provider Nurse Practitioner
DX: I74.2 Embolism and thrombosis of arteries of the upper extremities (principal)
CPT/HCPCS: 93931

== ENCOUNTER 2023-09-06 15:00 | Outpatient (RCR) | payer OTHER, SELFPAY ==
--- NOTE | 2023-08-08 14:53 | HMH.PTOPEV ---
PT Outpatient Evaluation Rehab PT Outpatient Evaluation Start: 08/08/23 12:57 Freq: Status: Active Protocol: Document 08/08/23 12:57 FREDDY (Rec: 08/08/23 14:53 FREDDY [id number]) E-signed By Senia Nunes, PT Outpatient Therapy Subjective History Subjective History Pt is a 57 y/o female who reports onset of LBP on after bending down and twisting to the right while putting [place] decorations up. Pt reports immediate pressure and pain of the low back upon returning to standing. Pt reports pain continued for 3 weeks so she went to the MD, states she was prescribed muscle relaxer she took for 1 week which did help improve pain. Pt also reports using Icy Hot patches which helped decreased sharp pain. Pt denies having imaging of the low back. Pt reports she continues to have a feeling of pressure in the low back that is worse with inactivity, transitional movements, bending forward lifting and carrying heavy items. Pt reports she has some intermittent tingling/itching sensation of the left side of the mid back but this was present prior to this injury. Pt denies numbness/tingling of the LE. Pt does reports pain down into the posterior right leg that occurs only while driving. 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 Chief Complaint Pain,Stiff Symptom Type Ache,Throb,Dull Symptoms Relieved By Heat,OTC Meds,Prescription Meds,Activity Symptoms Aggravated By Sitting,Standing,Bending/ Stooping,Lifting Prior Functional Limitations None Current Functional Limitations Lifting,Driving,Standing, Sitting,Stairs,Bending/ Stooping Symptom Description Constant but Variable Level of pain today (0-10) 2 Pain scale - at its best (0-10) 0 Pain scale - at its worst (0-10) 4 Lumbopelvic Eval Posture Lumbar Spine Posture Standing Position Increased Lordosis Palapation tenderness bilateral thoracic spinal tenderness Yes lumbar spinal tenderness Yes paraspinal tenderness Yes Lumbar/Sacral Palpation Findings Tenderness,Muscle Guarding Lumbar/Sacral Palpation Overall Comment 3/4 TTP R>L Accessory Movement T-spine Vertebrae Accessory Movements Central P/A [place] that Elicit Symptoms T10 bilateral T11 bilateral T12 bilateral L-spine Vertebrae Accessory Movements Central P/A [place] that Elicit Symptoms L2 bilateral L3 bilateral L4 bilateral L5 bilateral S1 bilateral Range of Motion Lumbar Spine Active Flexion Range of 90 Motion (degrees) Lumbar Spine Active Extension Range of 10 Motion (degrees) Left Lumbar Spine Lateral Flexion Active 10 Range of Motion (degrees) Right Lumbar Spine Lateral Flexion 15 Active Range of Motion (degrees) Manual Muscle Test Bilateral Knee Extension Strength Grade 5 Normal Knee Flexion Strength Grade 5 Normal Hip Flexion Strength Grade 4 Good Hip Abduction Strength Grade 4- Good- Hip Adduction Strength Grade 4 Good Hip Extension Strength Grade 3+ Fair+ Ankle Dorsiflexion Strength Grade 5 Normal Altered Sensation LE Dermatome Level L2,L4 Comment decreased light touch right compared to left Special Tests Hip Prudencio (PAIGE) Test Positive Left,Positive Right Sciatic Nerve Tension Test Negative Left,Negative Right Unilateral Straight Leg Raise (Lasegue) Negative Left,Negative Right Test Oswestry Index Section 1 Pain Intensity The pain comes and goes and is moderate Section 2 Personal Care (Washing,Dresing) increase the pain, but I manage not to change my way of doing it Section 3 Lifting I can lift heavy weights, but it gives me extra pain Section 4 Walking I have some pain when walking but it does not increase with distance Section 5 Sitting I can sit in my favorite chair for as long as I like Section 6 Standing I have some pain on standing, but it does not increase with time Section 7 Sleeping I get pain in bed, but it does not prevent me from sleeping well Section 8 Social Life My social life is normal and gives me no extra pain Section 9 Traveling I get some pain when traveling , but none of my usual forms of travel m Section 10 Changing Degreee of Pain My pain fluctuates, but overall is definitely getting better Score and Risk Level Oswestry Sc 11 Oswestry Risk Level Mild Disability Outpatient Therapy Assessment Impairments Problems/Impairmments Palpation Tenderness,Impaired Range of Motion,Impaired Strength,Impaired Standing, Impaired Sitting,Impaired Lifting,Impaired Stair Climbing,Impaired Bending, Impaired Work Activities, Subjective C/O Pain,Impaired Self Care/Self Management Prognosis Rehab Potential Good Clinical Impression Consistent with Diagnosis Yes Short Term Goals Number of Weeks 3 Improve Self Care/Self Management Yes Patient to be Ind w/ HEP Yes Halfway Goals Number of Weeks 6 Decreased Palpation Tenderness Yes: 1-2/4 TTP of thoracolumbar SP and PS Increase Range of Motion Yes: Improve lumbar ext & LF AROM to 20 Increase Strength Yes: Improve BLE hip strength to 4+-5/5 grossly to assist with function Restore Ability to Lift Objects to Waist Yes: 20-25# with proper Level mechanics & pain 2/10 or less to assist with occupation Improve Ability to Climb Stairs Yes: 1 flight reciprocally with pain 2/10 or less Improve Oswestry Score Yes: Improve score to 6 or less to improve overall QOL Decrease Subjective C/O Pain Yes: Improve pain at worst to 2/10 to improve overall QOL Outpatient Therapy Plan of Care Treatment Plan May Include Therapeutic Exercise Including Home Yes Exercise Program Manual Therapy Techniques Yes Neuromuscular Re-education Yes Therapeutic Activities to Return to Yes Previous Functional/Work Level ADL/Self Care Education Yes Mechanical Traction Yes Dry Needling Yes Thermal Modalities Yes Electrical Stimulation Yes Ultrasound/Phonophoresis Yes Iontophoresis Yes Massage Yes Eval/Re-Eval Yes Frequency Times per week 2 Duration Number of Weeks 4-6 Addendums This patient is a candidate for social No or vocational rehab? Patient/Guardian verbally acknowledges Yes understanding of treatment program and consents to further treatment? Patient/Guardian verbally acknowledges Yes understanding of diagnosis, prognosis and goals for treatment? Eval Complexity PT Charges 52739 - Low Complexity Shoulder/Elbow Eval Shoulder Objective Measurements Elbow Objective Measurements PHYSICIAN CERTIFICATION: I certify the specified therapy services for Radha Ward are required, authorized, and reviewed every 30 days.
== END 2023-09-06 16:15 | disposition home or self-care (01) ==
LOC: PT 15:00
PROVIDERS: PCP Internal Medicine; Visit Provider Internal Medicine
DX: M54.50 Low back pain, unspecified (principal); S33.5XXA Sprain of ligaments of lumbar spine, initial encounter
CPT/HCPCS: 20560; 97010; 97014; 97110; 97163; 97530; G0283

== ENCOUNTER 2023-12-27 12:47 | Emergency (ER) | payer OTHER, SELFPAY ==
--- NOTE | 2023-12-27 12:51 | EXP.UTC ---
Discharge Plan Disposition Patient Disposition: Home, Self-Care Condition: Good Prescriptions Prescriptions: No Action Trulicity 0.75 mg/0.5 mL pen injector 1.5 mg SQ QWEEK telmisartan [Micardis] 20 mg tablet 10 mg PO DAILY Rx Instructions: TAKE 1/2 TABLET BY MOUTH EVERY DAY Ubrelvy 100 mg tablet 100 mg PO .prn MDD 200 mg Qty: 10 6RF Rx Instructions: 100 mg p.o. as needed migraines. May repeat 2 hours later if persistent headache and no side effects. max dose 200 mg Nurtec ODT 75 mg tablet,disintegrating 75 mg PO Q OTHER DAY MDD 75 mg PRN (Reason: migraine headache) Qty: 16 12RF aspirin [Adult Low Dose Aspirin] 81 mg tablet,delayed release (DR/EC) 81 mg PO QDAY gemfibrozil 600 mg tablet 600 mg PO BID diphenoxylate-atropine [Lomotil] 2.5-0.025 mg tablet 1 tab PO DAILYP PRN (Reason: bowels) vitamin A-vitamin C-vit E-min tablet 2 tab PO QDAY omeprazole 40 mg capsule,delayed release(DR/EC) 40 mg PO QDAY albuterol sulfate [ProAir HFA] 90 mcg/actuation HFA aerosol inhaler 2 puff INHALATION Q6H PRN (Reason: asthma) montelukast [Singulair] 10 mg tablet 10 mg PO QHS levocetirizine [Xyzal] 5 mg tablet 5 mg PO QHS fluticasone propionate 50 mcg/actuation spray,suspension 2 spray INTRANASAL DAILY Rx Instructions: administer into each nostril torsemide 20 mg tablet 30 mg PO DAILYP PRN (Reason: fluid) pitavastatin calcium [Livalo] 4 mg tablet 4 mg PO DAILY sertraline [Zoloft] 100 mg tablet 100 mg PO DAILY Qty: 90 1RF Breztri Aerosphere 160-9-4.8 mcg/actuation HFA aerosol inhaler 2 inh inhalation BID 90 Days Qty: 10.7 3RF Farxiga 10 mg tablet See Rx Instructions .ROUTE .COMPLEX Qty: 90 1RF Dose Instruction: TAKE ONE TABLET BY MOUTH EVERY DAY Rx Instructions: TAKE ONE TABLET BY MOUTH EVERY DAY bisoprolol fumarate 10 mg tablet See Rx Instructions .ROUTE .COMPLEX Qty: 30 5RF Dose Instruction: TAKE ONE TABLET BY MOUTH EVERY DAY Rx Instructions: TAKE ONE TABLET BY MOUTH EVERY DAY metformin 500 mg tablet 1,000 mg PO BID 30 Days Qty: 120 1RF Hold Instructions: Resume on 05/04/23. lorazepam 0.5 MG tablet 0.5 mg PO DAILYP PRN (Reason: anxiety) spironolactone [Aldactone] 25 mg tablet 25 mg PO Q OTHER DAY PRN (Reason: Fluid) Referrals Follow up/Referrals: Baron Hernandez MD [Primary Care Provider] - See instructions Activity Restrictions/Add. Instructions Additional Instructions/Restrictions: Take torsemide when you get home and f/u with Dr Hernandez Saturday Clinical Impressions Clinical Impression: CHF (congestive heart failure) Instructions Patient Instructions: DI for Peripheral Edema-Unilateral Discharge ED Provider: Petra Whitney [facility] General Stated complaint: swelling in L arm and L leg Time Seen by Provider: 12/27/23 13:20 History of Present Illness Provider Complaint: Patient presents with swelling. Noticed pain in left leg 2 days ago when she was kneeling. Then yesterday noticed discomfort, heaviness. 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 History of CHF - not currently on diuretics Onset (ago): day(s) (2) Location: left and lower extremity Related Data Home Medications Medication Instructions Recorded Confirmed albuterol sulfate 90 mcg/actuation 2 puff inhalation Q6H PRN asthma 07/17/17 12/27/23 aerosol inhaler (ProAir HFA) aspirin 81 mg tablet,delayed 81 mg PO QDAY preventitive 07/17/17 12/27/23 release (Adult Low Dose Aspirin) diphenoxylate-atropine 2.5 1 tab PO DAILYP PRN bowels 07/17/17 09/05/23 mg-0.025 mg tablet (Lomotil) gemfibrozil 600 mg tablet 600 mg PO BID Cholesterol 07/17/17 12/27/23 montelukast 10 mg tablet 10 mg PO QHS Allergy symptoms 07/17/17 12/27/23 (Singulair) omeprazole 40 mg capsule,delayed 40 mg PO QDAY stomach 07/17/17 12/27/23 release vitamin A-vitamin C-vit E-min 2 tab PO QDAY Supplement 07/17/17 12/27/23 tablet levocetirizine 5 mg tablet (Xyzal) 5 mg PO QHS Allergy symptoms 12/02/17 12/27/23 fluticasone propionate 50 2 spray intranasal DAILY Allergy 10/29/19 12/27/23 mcg/actuation nasal symptoms spray,suspension torsemide 20 mg tablet 30 mg PO DAILYP PRN fluid 04/07/20 12/27/23 lorazepam 0.5 mg tablet 0.5 mg PO DAILYP PRN anxiety 11/02/20 09/05/23 pitavastatin calcium 4 mg tablet 4 mg PO DAILY Cholesterol 02/10/21 12/27/23 (Livalo) spironolactone 25 mg tablet 25 mg PO Q OTHER DAY PRN Fluid 11/29/22 12/27/23 (Aldactone) telmisartan 20 mg tablet (Micardis) 10 mg PO DAILY HTN 11/29/22 12/27/23 dulaglutide 0.75 mg/0.5 mL 1.5 mg SQ QWEEK Diabetes 08/22/23 12/27/23 subcutaneous pen injector (TrulicCartoDB) Previous Rx's Medication Instructions Recorded dapagliflozin propanediol 10 mg See Rx Instructions .Route 08/06/23 tablet (Farxiga) .COMPLEX #90 tabs budesonide 160 mcg-glycopyr 9 2 inh inhalation BID 90 days #10.7 08/22/23 mcg-formot 4.8 mcg/actuation HFA grams inhaler (Breztri Aerosphere) sertraline 100 mg tablet (Zoloft) 100 mg PO DAILY #90 tabs 08/22/23 bisoprolol fumarate 10 mg tablet See Rx Instructions .Route 08/26/23 .COMPLEX #30 tabs Nurtec ODT 75 mg disintegrating 75 mg PO Q OTHER DAY PRN migraine 09/05/23 tablet (rimegepant) headache #16 tabs Ubrelvy 100 mg tablet (ubrogepant) 100 mg PO .prn migraines #10 tabs 09/05/23 metformin 500 mg tablet 1,000 mg (2 x 500 mg) PO BID sugar 12/23/23 30 days #120 tabs Allergies Allergy/AdvReac Type Severity Reaction Status Date / Time niacin Allergy Severe S-SWELLS-OR Verified 12/27/23 13:17 AL/THROAT atorvastatin Allergy Intermediate KIDNEY Verified 12/27/23 13:17 FAILURE ertugliflozin Allergy Mild unsure Verified 12/27/23 13:17 [From Segluromet] erythromycin base Allergy Mild ABDOMINAL Verified 12/27/23 13:17 PAIN latex Allergy Mild SWELLING Verified 12/27/23 13:17 rosuvastatin [From CRESTOR] Allergy Unknown LEG PAIN [facility] 12/27/23 [facility] Dis[facility]: The information contained in this section may have been updated after the patient was seen, as this information can be updated by other users. Medical History (Updated 12/27/23 @ 14:05 by ALDO Cha) Snoring Asthma Traumatic ecchymosis of right wrist Right arm pain Jaw swelling Left ear pain Episodic migraine Major depressive disorder Generalized anxiety disorder Pallor Chest pain Dizziness Chest pain SOB (shortness of breath) SPARROW (dyspnea on exertion) Diastolic heart failure Edema MOISES (obstructive sleep apnea) HLD (hyperlipidemia) HTN (hypertension) Surgical History S/P partial hysterectomy Family History Mother Hypertension Diabetes Coronary artery disease Social History Smoking Status: Never smoker alcohol intake: current alcohol intake frequency: holidays/special occasions only counseling given: No counseling provided: none substance use type: denies use current occupational status: employed Travel in the last 8 weeks: None household members: spouse housing: house marital status: number of children: 0 education level: college current occupation: [employer] current occupational exposures/hazards: No caffeine: Yes physical activity: none ROS Obtained: Yes All systems reviewed & no additional complaints except as documented Musculoskeletal Musculoskeletal: Reports as per HPI Physical Exam General General appearance: alert and in no apparent distress Head Head exam: atraumatic, normocephalic and normal inspection Eye Eye exam: Present normal appearance, PERRL and EOMI ENT ENT exam: Present normal exam, normal oropharynx, mucous membranes moist, TM's normal bilaterally and normal external ear exam Neck Neck exam: Present normal inspection, full ROM and trachea midline; Absent meningismus or lymphadenopathy Chest Chest inspection: Present normal inspection and symmetric chest wall rise; Absent tenderness Respiratory Respiratory exam: Present normal lung sounds bilaterally; Absent respiratory distress Cardiovascular Cardiovascular exam: Present regular rate and normal rhythm; Absent JVD Abdominal Exam Abdominal exam: Present soft and normal bowel sounds; Absent distention, tenderness or guarding Extremities Exam Extremities exam: Present normal inspection, full ROM, normal capillary refill and calf tenderness Expanded Upper Extremity Exam Left: Arm exam: Present swelling Expanded Lower Extremity Exam Left: Upper leg exam: Present swelling Knee exam: Present swelling Back Exam Back exam: Present normal inspection; Absent tenderness Neurological Exam Neurological exam: Present alert and oriented X3 Psychiatric Psychiatric exam: Present normal affect and normal mood Skin Skin exam: Present warm, dry, intact and normal color Lymphatic Lymphatic Findings: no adenopathy Medical Decision Making Yakov Inquiry Pt receiving controlled substance: No CT Data ED CT Reviewed: Yes I have reviewed the patient's CT results US Data US Images: Lower Extremity ED US Reviewed: Yes I have reviewed the patient's US results Preliminary Findings: Normal/NAD
[2023-12-27 13:10] VITALS: BP 138/75; PULSE 73; RESP 18; TEMP 36.8; O2SAT 95; BMI 39.4
--- NOTE | 2023-12-27 13:24 | CA_ITS ---
FINAL REPORT TECHNIQUE: Color Doppler, duplex Doppler and compression sonography of the left lower extremity deep venous systems was performed. CLINICAL HISTORY: pain in left leg, and hx of blood clot, Obesity COMPARISON: None FINDINGS: There is no evidence of deep venous thrombosis from the level of the groin to the calf. The veins are patent and compressible. IMPRESSION: No evidence of deep venous thrombosis left lower extremity. Reviewed, Interpreted and Dictated by Sourav Padilla III, MD Transcribed by Roxane Hale Authenticated and [facility]
[2023-12-27] MEDS: FUROSEMIDE 20 MG/2 ML VIAL IJ (14:03)
[2023-12-27 14:16] VITALS: BP 138/75; PULSE 73; RESP 18; TEMP 36.8; O2SAT 95
== END 2023-12-27 14:16 | disposition home or self-care (01) ==
PROVIDERS: Emergency Provider Physician Assistant; PCP Internal Medicine
DX: I50.31 Acute diastolic (congestive) heart failure (principal); I11.0 Hypertensive heart disease with heart failure
CPT/HCPCS: 93971; 96372; 99204; 99212; G0463

== ENCOUNTER 2024-02-13 09:00 | Outpatient (RCR) | payer OTHER, SELFPAY ==
--- NOTE | 2024-01-17 16:06 | HMH.PTOPWND ---
Rehab Outpt Wound Evaluation Rehab OP Wound Evaluation Start: 01/17/24 15:32 Freq: Status: Active Protocol: Document 01/17/24 15:32 ROSANNE (Rec: 01/17/24 16:06 PHOEDDY [id number]) E-signed By Nick Donald, PT Subjective/History History History This is the initial PT eval for Radha Ward, 58 yowf who presents with c/o increased L LE edema and pain x ~ 1-2 wks with insidious onset of symptoms. She reports significant pain with squatting in the L thigh. She also reports mild feeling of the L UE edema as well. She reports possible explanation being a slight slip while walking up a hill just days prior to symptoms onset. She has PMH of CHF, DM, DVT. Subjective Subjective Currently pain is 2/10, at worst 8/10 in the L thigh. No pitting edema noted, but tissue feels full to palpation throughout the L thigh with increased size at the medial side of L knee. New diagnosis of cancer in past 12 No months? Wound Problems/Impairments Impairments Problems/Impairmments Palpation Tenderness,Impaired Strength,Impaired Endurance, Impaired Household Care, Impaired Squatting,Lymphedema Present,Subjective C/O Pain, Impaired Self Care/Self Management Prognosis Rehab Potential Good Comment Skilled therapy services are needed to reduce overall edema and aid return to prior level of function. 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 Number of Weeks 4 Decreased Palpation Tenderness Yes: 0/4 L medial knee Decrease Lymphedema Yes: No fibrotic edema L LE Decrease Subjective C/O Pain Yes: 3/10 at worst L LE Patient to be Ind w/ HEP Yes Patient to Adhere Lymphedema Precautions Yes Decrease Girth Measurments by (cm) Yes: L LE total by 15 cm Outpatient Therapy Plan of Care Treatment Plan May Include Therapeutic Exercise Including Home Yes Exercise Program Manual Therapy Techniques Yes Neuromuscular Re-education Yes Therapeutic Activities to Return to Yes Previous Functional/Work Level ADL/Self Care Education Yes Orthotics/Bracing/Splinting Yes Manual Lymphatic Drainage Yes Eval/Re-Eval Yes Frequency Times per week 2 Duration Number of Weeks 4 Addendums This patient is a candidate for social No or vocational rehab? Patient/Guardian verbally acknowledges Yes understanding of treatment program and consents to further treatment? Patient/Guardian verbally acknowledges Yes understanding of diagnosis, prognosis and goals for treatment? Eval Complexity PT Charges 60688 - High Complexity PHYSICIAN CERTIFICATION: I certify the specified therapy services for Radha Ward are required, authorized, and reviewed every 30 days.
== END 2024-02-13 09:05 | disposition home or self-care (01) ==
LOC: PT 09:00
PROVIDERS: Visit Provider Internal Medicine
DX: I89.0 Lymphedema, not elsewhere classified (principal)
CPT/HCPCS: 97140; 97163

== ENCOUNTER 2024-02-17 16:19 | Outpatient (CLI) | payer OTHER, SELFPAY ==
[2024-02-17 16:45] VITALS: PULSE 69; PULSE 75
[2024-02-17] MEDS: ALBUTEROL 0.083% 2.5 MG/3 ML NEB IH (16:45)
== END 2024-02-17 23:59 | disposition home or self-care (01) ==
LOC: RT 16:21
PROVIDERS: PCP Internal Medicine; Visit Provider Internal Medicine Pulmonary Disease
DX: R06.09 Other forms of dyspnea (principal)
CPT/HCPCS: 94060; 94618; 94640; 94726; 94729; J7613

== ENCOUNTER 2024-02-20 16:13 | Outpatient (CLI) | payer OTHER, SELFPAY ==
[2024-02-20 16:57] LABS: Basophils # 0.1 K/mm3 (0-0.2); Basophils % 1.2 % (0.1-2.0); Eosinophils # 0.3 K/mm3 (0.0-0.4); Eosinophils % 4.9 % (0.1-12.0); Hematocrit 41.3 % (37.0-47.0); Hemoglobin 13.5 g/dL (12.2-16.2); Lymphocytes # 1.7 K/mm3 (0.7-4.5); Lymphocytes % 25.4 % (10-50); Mean Corpuscular HGB Conc 32.7 g/dL (31.8-35.4); Mean Corpuscular Volume 88.7 fl (81-99); Mean Platelet Volume 7.8 fl (7.4-10.4); Monocytes # 0.3 K/mm3 (0.1-1.0); Monocytes % 4.7 % (1.7-9.3); Neutrophils # 4.3 K/mm3 (1.8-7.8); Neutrophils % 63.8 % (37.0-80.0); Platelet Count 208 K/mm3 (142-424); Red Blood Count 4.66 M/mm3 (4.20-5.40); Red Cell Distribution Width 15.8 % (11.5-17.5); White Blood Count 6.8 K/mm3 (4.8-10.8)
[2024-02-20 17:17] LABS: Albumin Level 4.2 g/dl (3.5-5.0); Chloride 105 mmol/L (98-107); Sodium 139 mmol/L (136-145)
[2024-02-20 17:18] LABS: Potassium 4.1 mmoL/L (3.5-5.1)
[2024-02-20 17:20] LABS: Alanine Aminotransferase 38 U/L (12-78); Anion Gap 12.1 mEq/L (5-15); Aspartate Amino Transferase 33 U/L (14-36); Bilirubin,Unconjugated 0.3 mg/dL (0.0-1.1); Blood Urea Nitrogen 17 mg/dl (7-17); Carbon Dioxide 26 mmol/L (22.0-30.0); Cholesterol 312 mg/dl (140-200); Estimated Glomerular Filt Rate 64 ml/min (>60); GFR (African American) 78 ML/MIN (>60); Total Protein,Serum 7.1 g/dl (6.3-8.2)
[2024-02-20 17:21] LABS: Alkaline Phosphatase 151 U/L (38-126); Bilirubin,Direct 0.2 mg/dl (0.0-0.4); Bilirubin,Indirect 0.3 mg/dL (0.0-0.9); Bilirubin,Total 0.5 mg/dl (0.2-1.3); Calcium 9.4 mg/dl (8.4-10.2); Chol/HDL Ratio 7.4 (1-3.5); Glucose 180 mg/dl (74-100); HDL Cholesterol 42 mg/dl (40-60); Magnesium 1.5 mg/dl (1.6-2.3)
[2024-02-20 17:31] LABS: Direct LDL Cholesterol 49.45 mg/dL (100-129)
[2024-02-20 17:37] LABS: Free T4 (Free Thyroxine) 1.04 ng/dl (0.78-2.19)
[2024-02-20 17:52] LABS: Thyroid Stimulating Hormone 0.82 uIU/mL (0.465-4.68)
[2024-02-20 19:51] LABS: Triglycerides 742 mg/dl (30-150)
== END 2024-02-20 23:59 | disposition home or self-care (01) ==
LOC: LAB 16:14
PROVIDERS: PCP Internal Medicine; Visit Provider Nurse Practitioner
DX: I50.32 Chronic diastolic (congestive) heart failure (principal); E66.01 Morbid (severe) obesity due to excess calories; E78.5 Hyperlipidemia, unspecified; I10 Essential (primary) hypertension; R06.02 Shortness of breath; I89.0 Lymphedema, not elsewhere classified; E11.9 Type 2 diabetes mellitus without complications; Z79.84 Long term (current) use of oral hypoglycemic drugs
CPT/HCPCS: 36415; 80048; 80061; 80076; 83735; 84439; 84443; 85025

== ENCOUNTER 2024-02-27 07:55 | Outpatient (CLI) | payer OTHER, SELFPAY ==
--- NOTE | 2024-02-27 07:56 | CT_ITS ---
FINAL REPORT TECHNIQUE: The patient was injected with IV contrast. Axial images were obtained of the chest by computed tomography. Precontrast images were also obtained. This study was performed with techniques to keep radiation doses as low as reasonably achievable (ALARA). Individualized dose reduction techniques using automated exposure control or adjustment of mA and/or kV according to the patient's size were employed. CLINICAL HISTORY: Lymphedema of left arm COMPARISON: None FINDINGS: CT OF THE CHEST WITH AND WITHOUT CONTRAST: A left thyroid nodule is noted measuring 8 mm. There is no axillary adenopathy. There is no mediastinal or hilar adenopathy. Heart size is normal. There is no pericardial or pleural effusion identified. There is no suspicious pulmonary nodule or infiltrate identified. There is mild scarring in the left lung base. IMPRESSION: 8 mm left thyroid nodule. Reviewed, Interpreted and Dictated by Sourav Padilla III, MD Transcribed by Roxane Hale Authenticated and [facility] [place] [place]
--- NOTE | 2024-02-27 07:56 | CT_ITS ---
FINAL REPORT TECHNIQUE: Axial CT images of the abdomen and pelvis were obtained before and after the administration of IV contrast. This study was performed with techniques to keep radiation doses as low as reasonably achievable (ALARA). Individualized dose reduction techniques using automated exposure control or adjustment of mA and/or kV according to the patient''s size were employed. CLINICAL HISTORY: Lymphedema of left thigh COMPARISON: 06/16/2020 FINDINGS: Abdomen: There is mild fatty infiltration of the liver. . Splenomegaly is noted with the spleen measuring 13.4 cm. No adrenal masses present. The pancreas has an unremarkable appearance. The kidneys enhance normally. The aorta is normal in caliber. There is no free fluid or adenopathy. No mass or abnormal fluid collection is seen. Precontrast images demonstrate no evidence of nephrolithiasis. Pelvis: The appendix is normal. The patient is post hysterectomy. The urinary bladder is unremarkable. No inflammatory process is seen. There is a 10 mm presumed lymph node in the right lower quadrant which is nonspecific and may be reactive. There is no evidence of bowel obstruction. IMPRESSION: Right lower quadrant 10 mm presumed lymph node, nonspecific and may be reactive. Mild fatty liver. Splenomegaly. Reviewed, Interpreted and Dictated by Sourav Padilla III, MD Transcribed by Roxane Hale Authenticated and [facility]
[2024-02-27] MEDS: SODIUM CHLORIDE 0.9% 10ML SYR (RAD ONLY) 10 ML IV (08:21)
[2024-02-27] MEDS: IOPAMIDOL-370 (76%);100ML BOTTLE 75 ML IV (08:21)
== END 2024-02-27 23:59 | disposition home or self-care (01) ==
LOC: RAD 07:56
PROVIDERS: PCP Internal Medicine; Visit Provider Internal Medicine
DX: I89.0 Lymphedema, not elsewhere classified (principal)
CPT/HCPCS: 71270; 74178; Q9967

== ENCOUNTER 2024-03-06 07:24 | Outpatient (CLI) | payer OTHER, SELFPAY ==
--- NOTE | 2024-03-06 07:27 | US_ITS ---
FINAL REPORT CLINICAL HISTORY: Splenomegaly on CT scan of abdomen pelvis FINDINGS: Limited sonographic images of the left upper quadrant were obtained. The spleen is in the upper limits of normal in size measuring 13 cm in craniocaudal dimension. The left kidney measures 11.3 cm. There is normal echogenicity. No hydronephrosis or mass is identified. IMPRESSION: Splenomegaly. Reviewed, Interpreted and Dictated by Jimmy Green MD Transcribed by Thuy Madden Authenticated and [facility]
--- NOTE | 2024-03-06 07:27 | US_ITS ---
FINAL REPORT TECHNIQUE: Real-time grayscale and color ultrasound of the thyroid was performed. CLINICAL HISTORY: Thyroid nodule COMPARISON: None FINDINGS: The thyroid gland measures 37 x 16 x 19 mm on the right and 44 x 15 x 16 mm on the left. The isthmus measures 3 mm. The parenchyma is heterogeneous.. Nodules: There is a dominant anechoic structure measuring 9 x 8 mm in the left lobe of the thyroid probably representing a colloid cyst. There are multiple tiny nodules in both lobes of the thyroid which are either hypoechoic or anechoic, most representing colloid cysts. IMPRESSION: Dominant TR 1 lesion left lobe of the thyroid. Heterogeneous parenchyma with probable multiple small colloid cyst. No follow-up required per TI-RADS criteria. Reviewed, Interpreted and Dictated by Jimmy Green MD Transcribed by Roxane Hale Authenticated and [facility]
== END 2024-03-06 23:59 | disposition home or self-care (01) ==
LOC: RAD 07:24
PROVIDERS: PCP Internal Medicine; Visit Provider Internal Medicine
DX: R16.1 Splenomegaly, not elsewhere classified (principal); E04.1 Nontoxic single thyroid nodule
CPT/HCPCS: 76536; 76705

== ENCOUNTER 2024-06-19 10:00 | Outpatient (RCR) | payer OTHER, SELFPAY ==
--- NOTE | 2024-04-23 11:41 | HMH.PTOPWND ---
Rehab Outpt Wound Evaluation Rehab OP Wound Evaluation Start: 04/23/24 11:20 Freq: Status: Active Protocol: Document 04/23/24 11:21 PHOEDDY (Rec: 04/23/24 11:41 PHORNE [id number]) E-signed By Nick Donald, PT Subjective/History History History This is the initial PT eval for Radha Ward, 58 yowf who presents with c/o continued increased L side edema and pain x ~ 2-3 mos with insidious onset of symptoms. She reports significant pain with squatting in the L thigh. She also reports feeling of edema in the L UE, axilla, and flank, as well. She has PMH of lumbar spine OA, MOISES, partial hysterectomy, CHF, DM, DVT, likely benign thyroid cysts. recent CT scan did show mild scarring in the L lung base. Subjective Subjective Pt reports intermittent pain, currently 3/10 in L flank/ abdomen, at worst 6/10. She reports feelings of heaviness in L UE and LE and feels her clothes do not fit her as they did previous. No pitting edema noted throughout the L UE and LE. Minimal palpable increased edema noted in the L brachial area and L axilla. New diagnosis of cancer in past 12 No months? Lymphedema Eval Classification of Lymphedema Secondary Lymphedema Yes: unk etiology Stemmer's sign Stemmer's Sign no Stage of Lymphedema Lymphedema stages Stage 0 (subjective c/o heaviness and aching) Skin Changes Other Changes Yes Pain Scale Pain Scale (0-10) 6 Radiation Therapy Has received radiation therapy no Chemo Therapy Has received chemo therapy no Affected Extremities Areas Affected by Lymphedema/Edema Left Upper Extremity,Abdomen, Left Lower Extremity,Left Axilla Manual Lymphatic Drainage Treatment Area MLD Treatment Area Left Upper Extremity,Abdomen, Left Lower Extremity,Left Axilla Wound Problems/Impairments Impairments Problems/Impairmments Impaired Dressing,Increased Edema,Lymphedema Present, Subjective C/O Pain,Impaired Self Care/Self Management Prognosis Rehab Potential Good Comment Skilled therapy is indicated to reduce overall edema burden and return pt to PLOF. Clinical Impression Consistent with Diagnosis Yes Short Term Goals Number of Weeks 2 Decrease Edema Yes: No palpable edems throughout L UE or LE Decrease Subjective C/O Pain Yes: 5/10 at worst L flank/ abdoman area. Patient to Understand Lymphedema Yes Treatment and Exercises Decrease Girth Measurments by (cm) Yes: L UE total by 3 cm Snf Goals Number of Weeks 4 Decrease Lymphedema Yes: No palpable edema Laxilla or flank Decrease Subjective C/O Pain Yes: 2/10 at worst L flank/ abdomen Patient to be Ind w/ HEP Yes Patient to Adhere Lymphedema Precautions Yes Decrease Girth Measurments by (cm) Yes: L UE total by 5 cm Outpatient Therapy Plan of Care Treatment Plan May Include Therapeutic Exercise Including Home Yes Exercise Program Manual Therapy Techniques Yes Neuromuscular Re-education Yes Therapeutic Activities to Return to Yes Previous Functional/Work Level ADL/Self Care Education Yes Orthotics/Bracing/Splinting Yes Manual Lymphatic Drainage Yes Eval/Re-Eval Yes Aquatic Therapy Yes Frequency Times per week 1-2 Duration Number of Weeks 4 Addendums This patient is a candidate for social No or vocational rehab? Patient/Guardian verbally acknowledges Yes understanding of treatment program and consents to further treatment? Patient/Guardian verbally acknowledges Yes understanding of diagnosis, prognosis and goals for treatment? Eval Complexity PT Charges 80359 - High Complexity PHYSICIAN CERTIFICATION: I certify the specified therapy services for Radha Ward are required, authorized, and reviewed every 30 days.
--- NOTE | 2024-05-20 16:31 | HMH.RHREAS ---
Rehab Reassessment Rehab OP Re-assessment Start: 04/23/24 11:20 Freq: Status: Active Protocol: Document 05/20/24 16:27 ROSANNE (Rec: 05/20/24 16:31 PHOEDDY [id number]) E-signed By Nick Donald, PT Rehab Re-assessment Subjective Subjective Pt reports she feels much better overall, much less heaviness and feels better after treatments. She reports less pain at worst in the L LE . Objective Objective Notes Edema: No palpable edema in L UE and L LE this date. Continues to have palpable edema noted in the L axilla and L flank areas. Pain: 4/10 pain at worst in the L LE. TTP: 0/4 TTP noted throughout L UE and LE. Assessment Progress Assessment Progressing as Expected Assessment Notes Pt has shown significant reduction in L UE and LE edema , but continues to have difficulty with abdominal edema build-up. She continues to need skilled therapy services to reduce overall edema in her flank and return to her PLOF. Patient goals met ST/4 LT/5 Plan Plan Continue per initial POC. Frequency of Therapy 1-2 x/wk Duration of therapy 4 wks Time and Billing Re-Eval Time 11 Re-Eval Billing Units 1 Charge for PT reassessment? Yes Charge for OT reassessment? No PHYSICIAN CERTIFICATION: I certify the specified therapy services for Radha Ward are required, authorized, and reviewed every 30 days.
--- NOTE | 2024-06-19 11:23 | HMH.RHREAS ---
Rehab Reassessment Rehab OP Re-assessment Start: 04/23/24 11:20 Freq: Status: Active Protocol: Document 06/19/24 11:16 ROSANNE (Rec: 06/19/24 11:23 PHORESTHER [id number]) E-signed By Nick Donald, PT Rehab Re-assessment Subjective Subjective Pt reports she continues to have increased feelings of edema in the entire L side of her body, but only proximally on the L UE and LE. She reports increased pain on the LLQ with any abdominal manual therapy performed. She does feel that increasing her exercise has helped her feel a little better overall. Objective Objective Notes Edema: No palpable edema in L LE this date. Mild palpable edema to the L upper arm. Continues to have palpable edema noted in the L axilla and L flank areas. Pain: 4/10 pain at worst in the L LE. TTP: 0/4 TTP noted throughout L UE and LE. Assessment Progress Assessment No Progress Assessment Notes Pt has shown no improvement in edema vs last reassessment. Continues to have fluctuating level of edema only on the L side, centered around the abdomen and flank. Pt is most appropriate to stop treatment at this time and return to MD for possible further diagnostic testing to explore an underlying cause for this edema that is unknown at this time. Patient goals met ST LT/5 Plan Plan Will D/C pt to independent HEP at this time. Recommend further work-uo to discover underlying cause of edema. Frequency of Therapy 0 Duration of therapy 0 Time and Billing Re-Eval Time 13 Re-Eval Billing Units 1 Charge for PT reassessment? Yes PHYSICIAN CERTIFICATION: I certify the specified therapy services for Radha Ward are required, authorized, and reviewed every 30 days.
== END 2024-06-19 23:59 | disposition home or self-care (01) ==
LOC: PT 10:00
PROVIDERS: Visit Provider Internal Medicine
DX: I89.0 Lymphedema, not elsewhere classified (principal)
CPT/HCPCS: 97110; 97140; 97163; 97164

== ENCOUNTER 2024-08-20 10:13 | Outpatient (CLI) | payer OTHER, SELFPAY ==
[2024-08-20 10:40] LABS: Basophils % 0.3 % (0.1-2.0); Eosinophils # 0.2 K/mm3 (0.0-0.4); Hematocrit 41.8 % (37.0-47.0); Hemoglobin 13.7 g/dL (12.2-16.2); Lymphocytes # 1.2 K/mm3 (0.7-4.5); Lymphocytes % 19.8 % (10-50); Mean Corpuscular HGB Conc 32.8 g/dL (31.8-35.4); Mean Corpuscular Hemoglobin 28.1 pg (27.0-31.2); Mean Corpuscular Volume 85.8 fl (81-99); Mean Platelet Volume 9.2 fl (7.4-10.4); Monocytes # 0.4 K/mm3 (0.1-1.0); Monocytes % 6.5 % (1.7-9.3); Neutrophils # 4.2 K/mm3 (1.8-7.8); Neutrophils % 70.1 % (37.0-80.0); Platelet Count 194 K/mm3 (142-424); Red Blood Count 4.87 M/mm3 (4.20-5.40); Red Cell Distribution Width 14.4 % (11.5-17.5)
[2024-08-20 11:00] LABS: Albumin Level 4.4 g/dl (3.5-5.0); Chloride 106 mmol/L (98-107); Sodium 142 mmol/L (136-145)
[2024-08-20 11:01] LABS: Potassium 4.3 mmoL/L (3.5-5.1)
[2024-08-20 11:03] LABS: Alanine Aminotransferase 30 U/L (12-78); Alkaline Phosphatase 117 U/L (38-126); Anion Gap 14.3 mEq/L (5-15); Aspartate Amino Transferase 32 U/L (14-36); Bilirubin,Indirect 0.4 mg/dL (0.0-0.9); Bilirubin,Total 0.4 mg/dl (0.2-1.3); Bilirubin,Unconjugated 0.6 mg/dL (0.0-1.1); Blood Urea Nitrogen 21 mg/dl (7-17); Calcium 9.5 mg/dl (8.4-10.2); Carbon Dioxide 26 mmol/L (22.0-30.0); Estimated Glomerular Filt Rate 74 ml/min (>60); GFR (African American) 89 ML/MIN (>60); Glucose 144 mg/dl (74-100); Total Protein,Serum 7.1 g/dl (6.3-8.2)
[2024-08-20 11:04] LABS: HDL Cholesterol 41 mg/dl (40-60); Magnesium 1.7 mg/dl (1.6-2.3)
[2024-08-20 11:16] LABS: Chol/HDL Ratio 9.3 (1-3.5); Cholesterol 383 mg/dl (140-200); Triglycerides 500 mg/dl (30-150)
[2024-08-20 11:21] LABS: Free T4 (Free Thyroxine) 1.17 ng/dl (0.78-2.19)
[2024-08-20 11:36] LABS: Thyroid Stimulating Hormone 0.79 uIU/mL (0.465-4.68)
== END 2024-08-20 23:59 | disposition home or self-care (01) ==
LOC: LAB 10:14
PROVIDERS: PCP Internal Medicine; Visit Provider Nurse Practitioner
DX: R55 Syncope and collapse (principal); I50.32 Chronic diastolic (congestive) heart failure; E66.01 Morbid (severe) obesity due to excess calories; E78.5 Hyperlipidemia, unspecified; E11.9 Type 2 diabetes mellitus without complications; I89.0 Lymphedema, not elsewhere classified; I10 Essential (primary) hypertension; R06.02 Shortness of breath; Z79.85 Long-term (current) use of injectable non-insulin antidiabetic drugs; Z79.84 Long term (current) use of oral hypoglycemic drugs
CPT/HCPCS: 36415; 80048; 80061; 80076; 83735; 84439; 84443; 85025; 93270

== ENCOUNTER 2024-09-25 07:54 | Day surgery (SDC) | payer OTHER, SELFPAY ==
[2024-09-25 08:00] VITALS: BMI 41.3
[2024-09-25 08:19] VITALS: BP 131/92; PULSE 73; RESP 20; TEMP 36.7; O2SAT 98
[2024-09-25] MEDS: CEFAZOLIN SODIUM 1 GM in 0.9 % SODIUM CHLORIDE 50 ML IV (09:05)
[2024-09-25] MEDS: LIDOCAINE 2% W/EPI 1:100,000 20ML VIAL 20 ML SUBCUT (09:06)
[2024-09-25 09:09] VITALS: BP 148/78; PULSE 85; RESP 18; TEMP 36.9; O2SAT 98
--- NOTE | 2024-09-28 13:45 | HMH.PROCNOTE ---
[facility] Procedure Note Date: 09/25/24 Time: 08:55 Procedure Note:: [facility] Loop Recorder Date: 09/25/2024 Time: 0855 Procedure Performed:: Internal loop recorder implantation Indication:: Syncope Technique:: Patient was brought to the cardiac Squirrel Man. After informed consent obtained, 1% lidocaine with epinephrine was used to anesthetize the site along the left anterior aspect of the chest near the sternal border. Using a scalpel, an incision was made and using the supplied preloaded apparatus, the loop recorder was placed subcutaneously without difficulty. Following the deployment of the loop recorder interrogation of the device was performed to ensure appropriate voltage was being detected. Once this was verified, Steri-Strips were placed over the incision and the patient was prepped to discharge home. Patient tolerated the procedure well with minimal discomfort. Impression:: Successful implantation of internal loop recorder. Serial Number:: [employer] [id number] Plan:: Routine postop care
== END 2024-09-25 09:38 | disposition home or self-care (01) ==
LOC: CATHLAB 07:56
PROVIDERS: PCP Internal Medicine; Visit Provider Internal Medicine
DX: R55 Syncope and collapse (principal); R06.02 Shortness of breath; Z88.3 Allergy status to other anti-infective agents; Z88.8 Allergy status to other drugs, medicaments and biological substances; Z79.51 Long term (current) use of inhaled steroids; Z79.899 Other long term (current) drug therapy; Z79.82 Long term (current) use of aspirin; Z79.84 Long term (current) use of oral hypoglycemic drugs; Z79.85 Long-term (current) use of injectable non-insulin antidiabetic drugs; J45.998 Other asthma; I11.0 Hypertensive heart disease with heart failure; E78.5 Hyperlipidemia, unspecified; Z82.49 Family history of ischemic heart disease and other diseases of the circulatory system; I50.32 Chronic diastolic (congestive) heart failure; E66.01 Morbid (severe) obesity due to excess calories; I89.0 Lymphedema, not elsewhere classified; E11.9 Type 2 diabetes mellitus without complications; G47.33 Obstructive sleep apnea (adult) (pediatric); Z83.3 Family history of diabetes mellitus; Z68.41 Body mass index [BMI] 40.0-44.9, adult
CPT/HCPCS: 33285; C1764; J0690

== ENCOUNTER 2024-11-05 10:45 | Outpatient (CLI) | payer OTHER, SELFPAY ==
--- NOTE | 2024-11-05 11:02 | US_ITS ---
FINAL REPORT TECHNIQUE: Limited sonographic images of the left upper quadrant were obtained with attention to the spleen. CLINICAL HISTORY: MONITOR SPLEEN COMPARISON: 03/06/2024 FINDINGS: The spleen measures 13.9 cm, was 13.1 cm. No focal splenic lesion is identified. The left kidney measures 11.7 cm. There is no hydronephrosis. There is no left upper quadrant ascites. IMPRESSION: Mild splenomegaly. Spleen may have increased slightly in size since prior. Reviewed, Interpreted and Dictated by Betty Ledezma MD Transcribed by Thuy Madden Authenticated and [facility]
== END 2024-11-05 23:59 | disposition home or self-care (01) ==
LOC: RAD 10:45
PROVIDERS: PCP Internal Medicine; Visit Provider Internal Medicine
DX: R16.1 Splenomegaly, not elsewhere classified (principal)
CPT/HCPCS: 76705

== ENCOUNTER 2025-01-07 10:03 | Outpatient (CLI) | payer OTHER, SELFPAY ==
--- NOTE | 2025-01-07 10:00 | US_ITS ---
FINAL REPORT CLINICAL HISTORY: Thyroid Nodules COMPARISON: 03/06/2024 FINDINGS: THYROID ULTRASOUND: The thyroid gland is normal in size. There are numerous colloid cysts present, most of which measure 5 mm or less in size. There is a larger benign-appearing cyst in the left thyroid, measuring up to 10 mm in size, unchanged since the prior ultrasound of 03/06/2024. IMPRESSION: 1. Stable multilobular goiter with multiple benign cysts. 2. No follow-up is required at this time. Reviewed, Interpreted and Dictated by Nolan Singh MD Transcribed by Stephanie Clayton Authenticated and [facility]
== END 2025-01-07 23:59 | disposition home or self-care (01) ==
LOC: RAD 10:03
PROVIDERS: PCP Internal Medicine; Visit Provider Physician Assistant
DX: E04.2 Nontoxic multinodular goiter (principal)
CPT/HCPCS: 76536

== ENCOUNTER 2025-01-26 06:36 | Outpatient (CLI) | payer OTHER, SELFPAY ==
[2025-01-26 08:29] LABS: Alanine Aminotransferase 28 U/L (12-78); Albumin Level 4.5 g/dl (3.5-5.0); Albumin/Globulin Ratio 1.6 (1.1-1.8); Alkaline Phosphatase 100 U/L (38-126); Anion Gap 17.3 mEq/L (5-15); Aspartate Amino Transferase 31 U/L (14-36); Bilirubin,Total 0.7 mg/dl (0.2-1.3); Blood Urea Nitrogen 16 mg/dl (7-17); Calcium 9.6 mg/dl (8.4-10.2); Carbon Dioxide 23 mmol/L (22.0-30.0); Chloride 102 mmol/L (98-107); Cholesterol 321 mg/dl (140-200); Creatinine,Serum 0.70 mg/dl (0.52-1.04); Estimated Glomerular Filt Rate 86 ml/min (>60); GFR (African American) 104 ML/MIN (>60); Globulin 2.9 g/dL (1.3-3.2); Glucose 138 mg/dl (74-100); HDL Cholesterol 43 mg/dl (40-60); Potassium 4.3 mmoL/L (3.5-5.1); Sodium 138 mmol/L (136-145); Total Protein,Serum 7.4 g/dl (6.3-8.2)
[2025-01-26 08:46] LABS: Triglycerides 479 mg/dl (30-150)
[2025-01-26 10:25] LABS: Hemoglobin A1C 8.2 % (4.0-6.0)
== END 2025-01-26 23:59 | disposition home or self-care (01) ==
LOC: LAB 06:39
PROVIDERS: PCP Internal Medicine; Visit Provider Internal Medicine
DX: E11.9 Type 2 diabetes mellitus without complications (principal); E78.5 Hyperlipidemia, unspecified; E66.01 Morbid (severe) obesity due to excess calories; I50.32 Chronic diastolic (congestive) heart failure; I11.0 Hypertensive heart disease with heart failure
CPT/HCPCS: 36415; 80053; 80061; 82043; 82570; 83036

== ENCOUNTER 2025-01-28 12:11 | Outpatient (CLI) | payer OTHER, SELFPAY ==
[2025-02-02 02:35] LABS: Pancreatic Elastase, Fecal >800 (>200)
== END 2025-01-28 23:59 | disposition home or self-care (01) ==
LOC: LAB 12:14
PROVIDERS: PCP Internal Medicine; Visit Provider Internal Medicine Gastroenterology
DX: R14.0 Abdominal distension (gaseous) (principal); R19.8 Other specified symptoms and signs involving the digestive system and abdomen
CPT/HCPCS: 82653

== ENCOUNTER 2025-02-25 11:17 | Day surgery (SDC) | payer OTHER, SELFPAY ==
--- NOTE | 2025-02-24 12:49 | EXP.HP ---
History of Present Illness *Admission Date: 02/25/25 *History of present illness: Mrs. Ward is a 59-year-old female who is here for diagnostic upper endoscopy secondary to dysphagia. The patient does state that over the last couple of years she has had solid food dysphagia to especially meats (steak) and breads but not to liquids. This does occur in the upper retrosternal region. She did have Heimlich maneuver 2 times last year. She is always able to regurgitate or swallow and has not had a food impaction. The patient does state that she has had regular EGD and colonoscopy and was diagnosed with gastric fundic polyps by Dr. Juan A King M.D. years ago. Her last EGD and colonoscopy were in April 2022 and she had unchanged gastric polyps. Her colonoscopy preparation was moderate and there was a right colon polyp that was removed. Dr. Juvenal Thornton M.D. recommended that she have repeat colonoscopy in 3 to 5 years. The patient has had left lower quadrant abdominal pain and discomfort several times a week. She does report bloating and gassiness. She also has had bowel irregularity with constipation that alternates with diarrhea. She does state that at the time of her partial hysterectomy, she did have 1 ovary that was adhesed to the small bowel. The patient did have an abdominal ultrasound in October 2024 that showed some mild splenomegaly. Her last abdominal CAT scan was in February 2024 which was fairly unremarkable except for a 10 mm presumed lymph node in the right lower quadrant. The pancreas was unremarkable but there was some splenomegaly identified at that time. The patient reports no weight loss, rectal bleeding or strong family history. She did have a great uncle with colon cancer. [facility] Disclaimer: The information contained in this section may have been updated after the patient was seen, as this information can be updated by other users. Medical History (HFpEF) heart failure with preserved ejection fraction Snoring Asthma Traumatic ecchymosis of right wrist Right arm pain Jaw swelling Left ear pain Already seen and evaluated by ENT with noncontributory work-up Episodic migraine Stable. Major depressive disorder Generalized anxiety disorder Pallor Chest pain Dizziness Chest pain SOB (shortness of breath) SPARROW (dyspnea on exertion) Diastolic heart failure Edema MOISES (obstructive sleep apnea) Severe MOISES on BiPAP 17/12 cm, full facemask, MIKE Rico. HLD (hyperlipidemia) HTN (hypertension) Surgical History History of loop recorder History of cardiac cath S/P partial hysterectomy Family History Mother Hypertension Diabetes Coronary artery disease Social History (Updated 02/25/25 @ 12:10 by Ericka Mclaughlin RN) Smoking Status: Never smoker alcohol intake: current alcohol intake frequency: holidays/special occasions only counseling given: No counseling provided: none substance use type: denies use current occupational status: employed Travel in the last 8 weeks?: Inside the [place] household members: spouse housing: house marital status: number of children: 0 education level: college current occupation: [employer] current occupational exposures/hazards: No caffeine: Yes physical activity: none Have you lived/traveled outside US in past 30 days?: No Contact w/someone who lives/traveled outside US past 30 days?: No Exposure to someone with infectious disease in past 14 days?: No Do you have a fever (greater than 100.4 F or 38 C)?: No Have you tested positive for COVID-19?: No Exposed to someone with COVID-19 in past 14 days?: No Do you have a sore throat?: No Do you have a cough?: No Do you have any weakness?: No Are you experiencing any nausea/vomitting?: No Do you have any diarrhea?: No Are you experiencing any unusual bleeding?: No Do you have any muscle aches/pain?: No Do you have any abdominal pain?: No Are you experiencing loss of taste or smell?: No Other Medical History Have you received the Flu Vaccine for this season: Yes Have you received the Pneumonia Vaccine: No Review of Systems Review of Systems Review of systems (narrative): Negative *Cardiovascular Comments: Negative *Gastrointestinal Comments: Negative *Genitourinary Comments: Negative *Musculoskeletal Comments: Negative *Neurologic Comments: Negative Meds Home Medications and Allergies Home Medications ?Medication ?Instructions ?Recorded ?Confirmed ?Type albuterol sulfate 90 mcg/actuation 2 puff inhalation Q6H PRN asthma 07/17/17 02/25/25 History aerosol inhaler (ProAir HFA) aspirin 81 mg tablet,delayed 81 mg PO QDAY preventitive 07/17/17 02/25/25 History release (Adult Low Dose Aspirin) vitamin A-vitamin C-vit E-min 2 tab PO QDAY Supplement 07/17/17 02/25/25 History tablet levocetirizine 5 mg tablet (Xyzal) 5 mg PO QHS Allergy symptoms 12/02/17 02/25/25 History fluticasone propionate 50 2 spray intranasal DAILY Allergy 10/29/19 02/25/25 History mcg/actuation nasal symptoms spray,suspension torsemide 20 mg tablet 30 mg PO DAILYP PRN fluid 04/07/20 02/25/25 History spironolactone 25 mg tablet 25 mg PO Q OTHER DAY PRN Fluid 11/29/22 02/25/25 History (Aldactone) dapagliflozin propanediol 10 mg See Rx Instructions .Route 02/17/24 02/25/25 Rx tablet (Farxiga) .COMPLEX #90 tabs budesonide 160 mcg-glycopyr 9 See Rx Instructions .Route 08/17/24 02/25/25 Rx mcg-formot 4.8 mcg/actuation HFA .COMPLEX #10.7 grams inhaler (Breztri Aerosphere) Nurtec ODT 75 mg disintegrating 75 mg PO Q OTHER DAY PRN migraine 08/20/24 02/25/25 Rx tablet (rimegepant) headache #16 tabs Ubrelvy 100 mg tablet (ubrogepant) 100 mg PO .prn migraines #10 tabs 08/20/24 02/25/25 Rx icosapent ethyl 1 gram capsule 2 g (2 x 1 gram) PO BID #120 caps 08/25/24 02/25/25 Rx (Vascepa) telmisartan 20 mg tablet (Micardis) 10 mg (1/2 x 20 mg) PO DAILY HTN 09/10/24 02/25/25 Rx #45 tabs sertraline 100 mg tablet (Zoloft) 100 mg PO DAILY #90 tabs 11/09/24 02/25/25 Rx pitavastatin calcium 4 mg tablet See Rx Instructions .Route 11/23/24 02/25/25 Rx .COMPLEX #30 tabs metformin 500 mg tablet See Rx Instructions .Route 12/08/24 02/25/25 Rx .COMPLEX #360 tabs montelukast 10 mg tablet See Rx Instructions .Route 12/08/24 02/25/25 Rx .COMPLEX #90 tabs dulaglutide 3 mg/0.5 mL 3 mg (0.5 mL) SQ WEEKLY #2 mL 01/28/25 02/25/25 Rx subcutaneous pen injector ivabradine 5 mg tablet (Corlanor) 10 mg (2 x 5 mg) PO BID 30 days 02/11/25 02/25/25 Rx #120 tabs omeprazole 40 mg capsule,delayed See Rx Instructions .Route 02/17/25 02/25/25 Rx release .COMPLEX #90 caps fenofibrate micronized 43 mg 43 mg PO DAILY #90 caps 02/18/25 02/25/25 Rx capsule New Prescriptions to Start Prescriptions: Allergies Allergy/AdvReac Type Severity Reaction Status Date / Time niacin Allergy Severe S-SWELLS-OR Verified 02/25/25 12:30 AL/THROAT atorvastatin Allergy Intermediate KIDNEY Verified 02/25/25 12:30 FAILURE ertugliflozin (From Allergy Mild unsure Verified 02/25/25 12:30 Segluromet) erythromycin base Allergy Mild ABDOMINAL Verified 02/25/25 12:30 PAIN latex Allergy Mild SWELLING Verified 02/25/25 12:30 rosuvastatin (From CRESTOR) Allergy Unknown LEG PAIN Verified 02/25/25 12:30 Exam *Routine HEENT Exam Head: Present normocephalic Eye: Present EOMI and PERRL ENT: Present mucous membranes moist *Routine Neck Exam Neck: Present supple *Routine Respiratory Exam Respiratory: Present CTA bilaterally *Routine Cardiovascular Exam Cardiovascular: Present RRR *Routine Abdominal Exam Abdominal: Present soft and normoactive bowel sounds; Absent tenderness *Routine Rectal Exam Rectal:: deferred *Routine Genitalia Exam Genitalia:: deferred *Routine Extremities Exam Extremities: Absent cyanosis, clubbing or edema *Routine Skin Exam Skin: Present warm; Absent rash *Routine Neurological Exam Neurological: Present alert and oriented X3 Assessment and Plan *Assessment and plan (1) Dysphagia: Status: Acute Category: Medical Code(s): R13.10 - Dysphagia, unspecified (2) Bloating: Status: Acute Category: Medical Code(s): R14.0 - Abdominal distension (gaseous) (3) Gassiness: Status: Acute Category: Medical Code(s): R14.0 - Abdominal distension (gaseous) (4) Benign fundic gland polyps of stomach: Status: Acute Category: Medical Code(s): D13.1 - Benign neoplasm of stomach Plan A/P: 1. Dysphagia is the preprocedural diagnosis. The patient does have benign fundic gland polyps of the stomach found previously. The patient will be anesthetized/sedated using MAC sedation. The patient has been seen and examined. Cardiac and lung assessment prior to the examination is stable. Proceed with planned diagnostic upper endoscopy.
[2025-02-25 12:08] VITALS: BP 151/73; PULSE 75; RESP 18; TEMP 36.3; O2SAT 94; BMI 40.8
[2025-02-25] MEDS: LACTATED RINGERS 1000ML 1,000 ML 50 ML IV (12:29)
[2025-02-25 12:33] LABS: POC Glucose,Bedside 115 (70-110)
--- NOTE | 2025-02-25 12:49 | P.PNANES_ITS ---
[facility] Disclaimer: The information contained in this section may have been updated after the patient was seen, as this information can be updated by other users. Medical History (HFpEF) heart failure with preserved ejection fraction Snoring Asthma Traumatic ecchymosis of right wrist Right arm pain Jaw swelling Left ear pain Episodic migraine Major depressive disorder Generalized anxiety disorder Pallor Chest pain Dizziness Chest pain SOB (shortness of breath) SPARROW (dyspnea on exertion) Diastolic heart failure Edema MOISES (obstructive sleep apnea) HLD (hyperlipidemia) HTN (hypertension) Surgical History History of loop recorder History of cardiac cath S/P partial hysterectomy Family History Mother Hypertension Diabetes Coronary artery disease Social History Smoking Status: Never smoker alcohol intake: current alcohol intake frequency: holidays/special occasions only counseling given: No counseling provided: none substance use type: denies use current occupational status: employed Travel in the last 8 weeks?: [place] the [place] household members: spouse housing: house marital status: number of children: 0 education level: college current occupation: [employer] current occupational exposures/hazards: No caffeine: Yes physical activity: none Have you lived/traveled outside US in past 30 days?: No Contact w/someone who lives/traveled outside US past 30 days?: No Exposure to someone with infectious disease in past 14 days?: No Do you have a fever (greater than 100.4 F or 38 C)?: No Have you tested positive for COVID-19?: No Exposed to someone with COVID-19 in past 14 days?: No Do you have a sore throat?: No Do you have a cough?: No Do you have any weakness?: No Are you experiencing any nausea/vomitting?: No Do you have any diarrhea?: No Are you experiencing any unusual bleeding?: No Do you have any muscle aches/pain?: No Do you have any abdominal pain?: No Are you experiencing loss of taste or smell?: No [facility] Anesthesia Checklist Patient Identification Patient Identification: Arm Band and Verbal (Name & ) Structural Data Admitted From: Home Planned Operative Procedure/s: EGD Consent for Planned Operative Procedure(s) Verified: Yes Verified Documents: Surgical Consent and History and Physical NPO Status Verified Time NPO: 00:00 Additional verifications Anesthesia Reactions: Yes (o2 dropped and swelling) Hx Blood Transfusions: No Blood Transfusion Reaction: No Airway Assessment Mallampati Score:: Class II Dentition: Good Dentition Neurological Assessment Level of Consciousness: Awake, Alert and Appropriate Hx Seizures: No Numbness or tingling in extremities: No Anesthesia Plan Anesthesia Risk discussed: Yes Anesthesia Plan: Verified ASA Class: II Anesthesia Type: MAC
--- NOTE | 2025-02-25 12:53 | P.PCN_ITS ---
[facility] Procedure Note Date: 02/25/25 Time: 13:04 Procedure Note:: Upper Endoscopy Procedure Report: Esophagogastroduodenoscopy with cold biopsies and TTS balloon dilation Endoscopost: Usama Sutton II, MD Referring Physician: Baron Hernandez MD Date of Procedure: February 25, 2025 Equipment: Olympus GIF-1100 standard upper endoscope Sedation: MAC sedation Indications: Mrs. Ward is a 59-year-old female who is here for diagnostic upper endoscopy secondary to dysphagia. The patient does state that over the last couple of years she has had solid food dysphagia to especially meats (steak) and breads but not to liquids. This does occur in the upper retrosternal region. She did have Heimlich maneuver 2 times last year. She is always able to regurgitate or swallow and has not had a food impaction. The patient does state that she has had regular EGD and colonoscopy and was diagnosed with gastric fundic polyps by Dr. Juan A King M.D. years ago. Her last EGD and colonoscopy were in April 2022 and she had unchanged gastric polyps. Her colonoscopy preparation was moderate and there was a right colon polyp that was removed. Dr. Juvenal Thornton M.D. recommended that she have repeat colonoscopy in 3 to 5 years. The patient has had left lower quadrant abdominal pain and discomfort several times a week. She does report bloating and gassiness. She also has had bowel irregularity with constipation that alternates with diarrhea. She does state that at the time of her partial hysterectomy, she did have 1 ovary that was adhesed to the small bowel. The patient did have an abdominal ultrasound in October 2024 that showed some mild splenomegaly. Her last abdominal CAT scan was in February 2024 which was fairly unremarkable except for a 10 mm presumed lymph node in the right lower quadrant. The pancreas was unremarkable but there was some splenomegaly identified at that time. The patient reports no weight loss, rectal bleeding or strong family history. She did have a great uncle with colon cancer. Procedure: Prior to the procedure, a history and physical exam was performed, and patient's medications and allergies were reviewed. The risks, benefits and alternatives of the sedation and procedure were discussed with the patient. All questions were answered and informed consent was obtained. The patient was brought to the procedure room. Patient identification and proposed procedure were verified by the physician and the nurse. The patient was placed in a left lateral decubitus position and the scope was passed under direct vision. Throughout the procedure, the patient's blood pressure, pulse, and oxygen saturations were monitored continuously. The upper GI endoscopy was accomplished without difficulty. The patient tolerated the procedure well. Findings: The scope was passed directly into the upper esophagus and advanced to the third and fourth portion of the duodenum. A cold biopsy was taken from the second portion of the duodenum for the disaccharidase assay. The post bulbar duodenum, ampulla and duodenal bulb were normal with normal mucosa and conniventes. The scope was withdrawn through a normal duodenal bulb and pylorus into the stomach. There was moderate linear reactive gastropathy of the antrum with some bile reflux. Cold biopsies were taken from the antrum. There are a few scattered gastric fundic gland polyps in the body and fundus. The largest was removed via cold biopsy. Upon retroflexion there was no hiatal hernia. The scope was then withdrawn into the esophagus. There was no evidence of reflux esophagitis or Tran's. There was no rings, strictures, corrugation, furrowing or webs. There was no proximal esophageal inlet patch. There were stronger tertiary contractions and evidence of moderate esophageal dysmotility. The entire esophagus was dilated to 60 Congolese/20 mm with a TTS hydrostatic balloon. There was no significant resistance but some mild resistance of the cricopharyngeus. The remainder of the esophageal mucosa was normal. Impression: 1. Nonerosive GERD with moderate esophageal dysmotility status post dilation to 20 mm 2. Moderate linear reactive gastropathy of the antrum with bile reflux 3. Gastric fundic gland polyps Plan: I will follow-up the biopsies and disaccharidase assay. Most of her swallowing difficulty is related to the esophageal dysmotility. We will discuss treatment options.
[2025-02-25 13:03] VITALS: BP 130/78; PULSE 80; RESP 16; TEMP 36.2; O2SAT 94
[2025-02-25 13:13] VITALS: BP 130/70; PULSE 83; RESP 16; O2SAT 93
[2025-02-25 13:23] VITALS: BP 142/79; PULSE 79; RESP 18; O2SAT 95
[2025-02-25 13:33] VITALS: BP 143/76; PULSE 76; RESP 16; O2SAT 96
[2025-03-01 16:17] LABS: Interpretation Notes (.); Lactase 18.64 (>/= 14.0); Maltase 181.94 (>/= 110.0); Palatinase 9.93 (>/= 8.5); Reference Notes (.); Sucrase 35.25 (>/= 25.0)
== END 2025-02-25 13:45 | disposition home or self-care (01) ==
PROVIDERS: PCP Internal Medicine; Visit Provider Internal Medicine Gastroenterology
PROC: 0DJ08ZZ Inspection of Upper Intestinal Tract, Via Natural or Artificial Opening Endoscopic (ICD-10-PCS; CPT 43239; principal; 2025-02-25 11:30)
DX: K21.9 Gastro-esophageal reflux disease without esophagitis (principal); K31.9 Disease of stomach and duodenum, unspecified; K31.7 Polyp of stomach and duodenum; I11.0 Hypertensive heart disease with heart failure; I50.30 Unspecified diastolic (congestive) heart failure; J45.909 Unspecified asthma, uncomplicated; E78.5 Hyperlipidemia, unspecified; Z88.8 Allergy status to other drugs, medicaments and biological substances; Z79.899 Other long term (current) drug therapy; Z79.82 Long term (current) use of aspirin
CPT/HCPCS: 43239; 43249; 82657; 82962; C1726; J2003; J2704; J7120

== ENCOUNTER 2025-03-04 13:48 | Outpatient (RCR) | payer OTHER, SELFPAY ==
--- NOTE | 2025-03-04 15:18 | HMH.OPLYMPH ---
Rehab Inpt Wound Evaluation Rehab OP Lymphedema Evaluation Start: 03/04/25 13:58 Freq: Status: Active Protocol: Document 03/04/25 14:58 PHOEDDY (Rec: 03/04/25 15:16 PHORNE [id number]) E-signed By Nick Donald, PT Subjective/History History History This is the initial PT eval for Radha Ward, 59 yowf who presents with c/o continued L side lower abdomen and L thigh edema x 1-2 yrs with insidious onset. She is well known to our clinic and had good results with prior treatment. Her edema presentation is atypical at best, and no exact underlying cause has been discovered . She reports no c/o pain at this time, but does feel heaviness in the L LE. She has PMH of diastolic heart failure, DM-II, MOISES, depression, anxiety, benign thyroid nodules, Mild splenomegaly, hysterectomy. She had a CT scan performed ~ 1 yr ago which showed: Right lower quadrant 10 mm presumed lymph node, nonspecific and may be reactive. Subjective Subjective No pain at this time, 0/10, and no TTP noted. Palpable edema throughout the L thigh, but no pitting or fibrosis identified. Increased dryness of the skin and mild L LE erythema noted. Pt continues to have persistent lymphedema despite conservative treatment consisting of greater than 4 weeks of consistent elevation of B LE, compression garment wear throughout the day, and therapeutic exercise to improve fluid mobilization. Skin changes including increased redness and increased dryness of the skin remain evident. Lymphedema Eval Classification of Lymphedema Secondary Lymphedema Yes: unk etiology Stemmer's sign Stemmer's Sign no Stage of Lymphedema Lymphedema stages Stage II (Pitting edema, increased fibrosis w/ decreased pitting) Skin Changes Dry Skin Yes Redness Yes Discoloration of Yes Skin Other Changes Yes Affected Extremities Areas Affected by Abdomen,Left Lower Extremity Lymphedema/Edema Lower Extremity Measurements Left MTP Measurement (cm) 23.1 Heel Measurement (cm 31.8 ) 10 cm Proximal to 32.6 Lateral Malleoli Measurement (cm) 20 cm Proximal to 45.5 Lateral Malleoli Measurement (cm) 30 cm Proximal to 51.4 Lateral Malleoli Measurement (cm) 40 cm Proximal to 48.3 Lateral Malleoli Measurement (cm) 50 cm Proximal to 61.6 Lateral Malleoli Measurement (cm) 60 cm Proximal to 0 Lateral Malleoli Measurement (cm) Lower Extremity 294.3 Measurement Total ( cm) Manual Lymphatic Drainage Treatment Area MLD Treatment Area Abdomen,Left Lower Extremity Wound Problems/Impairments Impairments Problems/ Impaired Dressing,Impaired Household Care,Lymphedema Impairmments Present,Impaired Self Care/Self Management Prognosis Rehab Potential Good Comment Skilled therapy is indicated to aid reduction of overall lymphedema in order to assist pt return to improved QOL. Clinical Impression Consistent with Yes Diagnosis Lymphedema Patient Goals Lymphedema Patient Goals Lymphedema Short in 2 wks pt will: Term Patient Goals 1) Reduce circumferential measurements to L LE by 5 cm 2) Require minimal assistance with performing self MLD to L LE Lymphedema Staffing Manager in 4 wks pt will: Patient Goals 1) Reduce circumferential measurements to L LE by 15 cm 2) Be independent with donning/doffing of compression garments 3) be independent with Lymphedema management via HEP 4) Have no c/o difficulty donning pants due to increased edema in L LE. Outpatient Therapy Plan of Care Treatment Plan May Include Therapeutic Exercise Yes Including Home Exercise Program Manual Therapy Yes Techniques Neuromuscular Re- Yes education Therapeutic Yes Activities to Return to Previous Functional/Work Level ADL/Self Care Yes Education Orthotics/Bracing/ Yes Splinting Manual Lymphatic Yes Drainage Eval/Re-Eval Yes Frequency Times per week 2 Duration Number of Weeks 4 Addendums This patient is a No candidate for social or vocational rehab ? Patient/Guardian Yes verbally acknowledges understanding of treatment program and consents to further treatment? Patient/Guardian Yes verbally acknowledges understanding of diagnosis, prognosis and goals for treatment? Eval Complexity PT Charges 97198 - High Complexity PHYSICIAN CERTIFICATION: I certify the specified therapy services for Radha Ward are required, authorized, and reviewed every 30 days.
== END 2025-03-04 23:59 | disposition home or self-care (01) ==
LOC: PT 13:48
PROVIDERS: PCP Internal Medicine; Visit Provider Physician Assistant
DX: R60.0 Localized edema (principal)
CPT/HCPCS: 97163

== ENCOUNTER 2025-03-26 09:00 | Outpatient (RCR) | payer OTHER, SELFPAY | END 2025-03-26 23:59 | disposition home or self-care (01) | LOC: PT 09:00 | PROVIDERS: PCP Internal Medicine; Visit Provider Physician Assistant | DX: I89.0 Lymphedema, not elsewhere classified (principal) | CPT/HCPCS: 97140 ==

== ENCOUNTER 2025-05-20 07:15 | Day surgery (SDC) | payer OTHER, SELFPAY ==
--- NOTE | 2025-05-18 07:14 | EXP.HP ---
History of Present Illness *Admission Date: 05/20/25 *History of present illness: Mrs. Ward is a 59-year-old female who is here for screening/surveillance colonoscopy. Her last colonoscopy was in April 2022 and her preparation was moderate and a right colon polyp (mucosal prolapse polyp) was removed (Juvenal Thornton M.D.). He recommended repeat screening/surveillance colonoscopy in 3 to 5 years. She has had some left lower abdominal pain and discomfort with bloating, gassiness and bowel irregularity. She reports constipation that alternates with diarrhea. Her last abdominal CAT scan in February 2024 showed a 10 mm presumed lymph node in the right lower quadrant. The examination is deemed medically necessary for screening/surveillance colonoscopy. The patient has been seen, interviewed and examined prior to the procedure by both myself and the anesthesia provider. [facility] Disclaimer: The information contained in this section may have been updated after the patient was seen, as this information can be updated by other users. Medical History Dropped heart beats (HFpEF) heart failure with preserved ejection fraction Snoring Asthma Traumatic ecchymosis of right wrist Right arm pain Jaw swelling Left ear pain Episodic migraine Major depressive disorder Generalized anxiety disorder Pallor Chest pain Dizziness Chest pain SOB (shortness of breath) SPARROW (dyspnea on exertion) Diastolic heart failure Edema MOISES (obstructive sleep apnea) HLD (hyperlipidemia) HTN (hypertension) Surgical History History of loop recorder History of cardiac cath S/P partial hysterectomy Family History Mother Diabetes Coronary artery disease Hypertension Other Brain cancer Colon cancer Lung cancer Social History Smoking Status: Never smoker alcohol intake: current alcohol intake frequency: holidays/special occasions only counseling given: No counseling provided: none substance use type: denies use current occupational status: employed Travel in the last 8 weeks?: [place] the [place] household members: spouse housing: house marital status: number of children: 0 education level: college current occupation: [employer] current occupational exposures/hazards: No caffeine: Yes physical activity: none Have you lived/traveled outside US in past 30 days?: No Contact w/someone who lives/traveled outside US past 30 days?: No Exposure to someone with infectious disease in past 14 days?: No Do you have a fever (greater than 100.4 F or 38 C)?: No Have you tested positive for COVID-19?: No Exposed to someone with COVID-19 in past 14 days?: No Do you have a sore throat?: No Do you have a cough?: No Do you have any weakness?: No Are you experiencing any nausea/vomitting?: No Do you have any diarrhea?: No Are you experiencing any unusual bleeding?: No Do you have any muscle aches/pain?: No Do you have any abdominal pain?: No Are you experiencing loss of taste or smell?: No Other Medical History Have you received the Flu Vaccine for this season: Yes Have you received the Pneumonia Vaccine: No Review of Systems Review of Systems Review of systems (narrative): Negative *Cardiovascular Comments: Negative *Gastrointestinal Comments: Negative *Genitourinary Comments: Negative *Musculoskeletal Comments: Negative *Neurologic Comments: Negative Meds Home Medications and Allergies Home Medications ?Medication ?Instructions ?Recorded ?Confirmed ?Type albuterol sulfate 90 mcg/actuation 2 puff inhalation Q6H PRN asthma 07/17/17 05/20/25 History aerosol inhaler (ProAir HFA) aspirin 81 mg tablet,delayed 81 mg PO QDAY preventitive 07/17/17 05/20/25 History release (Adult Low Dose Aspirin) vitamin A-vitamin C-vit E-min 2 tab PO QDAY Supplement 07/17/17 05/20/25 History tablet torsemide 20 mg tablet 30 mg PO DAILYP PRN fluid 04/07/20 05/20/25 History spironolactone 25 mg tablet 25 mg PO Q OTHER DAY PRN Fluid 11/29/22 05/20/25 History (Aldactone) budesonide 160 mcg-glycopyr 9 See Rx Instructions .Route 08/17/24 05/20/25 Rx mcg-formot 4.8 mcg/actuation HFA .COMPLEX #10.7 grams inhaler (Breztri Aerosphere) Nurtec ODT 75 mg disintegrating 75 mg PO Q OTHER DAY PRN migraine 08/20/24 05/20/25 Rx tablet (rimegepant) headache #16 tabs Ubrelvy 100 mg tablet (ubrogepant) 100 mg PO .prn migraines #10 tabs 08/20/24 05/20/25 Rx telmisartan 20 mg tablet (Micardis) 10 mg (1/2 x 20 mg) PO DAILY HTN 09/10/24 05/20/25 Rx #45 tabs sertraline 100 mg tablet (Zoloft) 100 mg PO DAILY #90 tabs 11/09/24 05/20/25 Rx pitavastatin calcium 4 mg tablet See Rx Instructions .Route 11/23/24 05/20/25 Rx .COMPLEX #30 tabs metformin 500 mg tablet See Rx Instructions .Route 12/08/24 05/20/25 Rx .COMPLEX #360 tabs montelukast 10 mg tablet See Rx Instructions .Route 12/08/24 05/20/25 Rx .COMPLEX #90 tabs omeprazole 40 mg capsule,delayed See Rx Instructions .Route 02/17/25 05/20/25 Rx release .COMPLEX #90 caps fenofibrate micronized 43 mg 43 mg PO DAILY #90 caps 02/18/25 05/20/25 Rx capsule dapagliflozin propanediol 10 mg See Rx Instructions .Route 03/03/25 05/20/25 Rx tablet (Farxiga) .COMPLEX #90 tabs lorazepam 0.5 mg tablet (Ativan) 0.5 mg PO BID PRN anxiety #10 tabs 03/04/25 05/20/25 Rx icosapent ethyl 1 gram capsule 2 g (2 x 1 gram) PO BID #120 caps 03/17/25 05/20/25 Rx (Vascepa) ivabradine 5 mg tablet (Corlanor) 5 mg PO BID #90 tabs 03/23/25 05/20/25 Rx azelastine 0.05 % eye drops 1 drp Eye-Both BID PRN . 04/29/25 05/20/25 History azelastine 137 mcg-fluticasone 50 1 spray intranasal DAILY 04/29/25 05/20/25 History mcg/spray nasal spray levocetirizine 5 mg tablet 5 mg PO DAILY 04/29/25 05/20/25 History sodium,potassium,mag sulfates 17.5 See Rx Instructions PO .COMPLEX 05/06/25 Rx gram-3.13 gram-1.6 gram oral soln #354 mL (Suprep Bowel Prep Kit) dulaglutide 3 mg/0.5 mL 3 mg SQ WEEKLY 05/20/25 05/20/25 [facility] New Prescriptions to Start Prescriptions: Allergies Allergy/AdvReac Type Severity Reaction Status Date / Time niacin Allergy Severe S-SWELLS-OR Verified 05/20/25 08:11 AL/THROAT atorvastatin Allergy Intermediate KIDNEY Verified 05/20/25 08:11 FAILURE ertugliflozin (From Allergy Mild Unknown Verified 05/20/25 08:11 Segluromet) allergy reaction erythromycin base Allergy Mild ABDOMINAL Verified 05/20/25 08:11 PAIN latex Allergy Mild SWELLING Verified 05/20/25 08:11 rosuvastatin (From CRESTOR) Allergy Unknown LEG PAIN Verified 05/20/25 08:11 Exam *Routine HEENT Exam Head: Present normocephalic Eye: Present EOMI and PERRL ENT: Present mucous membranes moist *Routine Neck Exam Neck: Present supple *Routine Respiratory Exam Respiratory: Present CTA bilaterally *Routine Cardiovascular Exam Cardiovascular: Present RRR *Routine Abdominal Exam Abdominal: Present soft and normoactive bowel sounds; Absent tenderness *Routine Rectal Exam Rectal:: deferred *Routine Genitalia Exam Genitalia:: deferred *Routine Extremities Exam Extremities: Absent cyanosis, clubbing or edema *Routine Skin Exam Skin: Present warm; Absent rash *Routine Neurological Exam Neurological: Present alert and oriented X3 Assessment and Plan *Assessment and plan (1) Screening for colon cancer: Status: Acute Category: Medical Code(s): Z12.11 - Encounter for screening for malignant neoplasm of colon (2) Irritable bowel syndrome with alternating bowel habits: Status: Chronic Category: Medical Code(s): K58.2 - Mixed irritable bowel syndrome (3) Personal history of colon polyps, unspecified: Status: Acute Category: Medical Code(s): Z86.0100 - Personal history of colon polyps, unspecified Plan A/P: 1. Screening for colon cancer is the preprocedural diagnosis. The patient will be anesthetized/sedated using MAC sedation. The patient has been seen and examined. Cardiac and lung assessment prior to the examination is stable. Proceed with planned screening colonoscopy.
[2025-05-19 15:34] VITALS: BMI 38.7
--- NOTE | 2025-05-20 06:41 | P.PCN_ITS ---
[facility] Procedure Note Date: 05/20/25 Time: 09:27 Procedure Note:: Colonoscopy Procedure Report: Colonoscopy with cold snare polypectomy Endoscopist: Usama Sutton II, MD Referring physician: Baron Hernandez MD Date of Procedure: May 20, 2025 Equipment: Olympus [id number] adult colonoscope Sedation: MAC sedation Indication: Mrs. Ward is a 59-year-old female who is here for screening/surveillance colonoscopy. Her last colonoscopy was in April 2022 and her preparation was moderate and a right colon polyp (mucosal prolapse polyp) was removed (Juvenal Thornton M.D.). He recommended repeat screening/surveillance colonoscopy in 3 to 5 years. She has had some left lower abdominal pain and discomfort with bloating, gassiness and bowel irregularity. She reports constipation that alternates with diarrhea. The patient reports no rectal bleeding or weight loss. The patient does state that her great uncle had colon cancer. Her last abdominal CAT scan in February 2024 showed a 10 mm presumed lymph node in the right lower quadrant. The examination is deemed medically necessary for screening/surveillance colonoscopy. Procedure: Prior to the procedure, a history and physical exam was performed, and patient's medications and allergies were reviewed. The risks, benefits and alternatives of the sedation and procedure were discussed with the patient. All questions were answered and informed consent was obtained. The patient was brought to the procedure room. Patient identification and proposed procedure were verified by the physician and the nurse. The patient was placed in a left lateral decubitus position and the scope was passed under direct vision. Throughout the procedure, the patient's blood pressure, pulse, and oxygen saturations were monitored continuously. The colonoscopy was accomplished without difficulty. The patient tolerated the procedure well. Findings: On digital rectal examination there was normal rectal tone. There were no external hemorrhoids. The colonoscope was introduced through the anal canal to the rectum and advanced to the cecum. The ileocecal valve and appendiceal orifice were identified. The scope was advanced a short distance into the ileum which appeared grossly normal. The scope was then withdrawn into the colon. The cecum, ascending, transverse, descending and sigmoid colon were grossly normal. There was a diminutive 3 mm polyp in the rectum removed via cold snare polypectomy. There were no other mucosal abnormalities. Upon retroflexion within the rectum there were grade 1-2 internal hemorrhoids. The preparation was excellent throughout with Senath Preparation Score of 9. The cecal time was 12 minutes. Impression: 1. Diminutive 3 mm rectal polyp Plan: I will follow-up the polyp histology and recommend repeat screening/surveillance colonoscopy again in 7 to 10 years based upon the pathology. I would encourage a fiber bowel regimen (combined MiraLAX plus Metamucil or Citrucel) on a long-term daily maintenance basis.
[2025-05-20 08:06] VITALS: BP 141/72; PULSE 67; RESP 18; TEMP 36.2; O2SAT 95
[2025-05-20] MEDS: LACTATED RINGERS 1000ML 1,000 ML 50 ML IV (08:44)
--- NOTE | 2025-05-20 08:49 | EXP.ANES.CKL ---
[facility] Disclaimer: The information contained in this section may have been updated after the patient was seen, as this information can be updated by other users. Medical History Dropped heart beats (HFpEF) heart failure with preserved ejection fraction Snoring Asthma Traumatic ecchymosis of right wrist Right arm pain Jaw swelling Left ear pain Episodic migraine Major depressive disorder Generalized anxiety disorder Pallor Chest pain Dizziness Chest pain SOB (shortness of breath) SPARROW (dyspnea on exertion) Diastolic heart failure Edema MOISES (obstructive sleep apnea) HLD (hyperlipidemia) HTN (hypertension) Surgical History History of loop recorder History of cardiac cath S/P partial hysterectomy Family History Mother Diabetes Coronary artery disease Hypertension Other Brain cancer Colon cancer Lung cancer Social History Smoking Status: Never smoker alcohol intake: current alcohol intake frequency: holidays/special occasions only counseling given: No counseling provided: none substance use type: denies use current occupational status: employed Travel in the last 8 weeks?: [place] the [place] household members: spouse housing: house marital status: number of children: 0 education level: college current occupation: [employer] current occupational exposures/hazards: No caffeine: Yes physical activity: none Have you lived/traveled outside US in past 30 days?: No Contact w/someone who lives/traveled outside US past 30 days?: No Exposure to someone with infectious disease in past 14 days?: No Do you have a fever (greater than 100.4 F or 38 C)?: No Have you tested positive for COVID-19?: No Exposed to someone with COVID-19 in past 14 days?: No Do you have a sore throat?: No Do you have a cough?: No Do you have any weakness?: No Are you experiencing any nausea/vomitting?: No Do you have any diarrhea?: No Are you experiencing any unusual bleeding?: No Do you have any muscle aches/pain?: No Do you have any abdominal pain?: No Are you experiencing loss of taste or smell?: No [facility] Anesthesia Checklist Patient Identification Patient Identification: Arm Band and Verbal (Name & ) Structural Data Admitted From: Home Planned Operative Procedure/s: colonscopy Consent for Planned Operative Procedure(s) Verified: Yes Verified Documents: Surgical Consent and History and Physical NPO Status Verified Time NPO: 00:00 Additional verifications Anesthesia Reactions: Yes (o2 dropped and swelling) Hx Blood Transfusions: No Blood Transfusion Reaction: No Previous Colonoscopy: Yes Airway Assessment Mallampati Score:: Class I Dentition: Good Dentition Neurological Assessment Level of Consciousness: Awake, Alert and Appropriate Hx Seizures: No Numbness or tingling in extremities: No Anesthesia Plan Anesthesia Risk discussed: Yes Anesthesia Plan: Verified ASA Class: III Anesthesia Type: MAC
[2025-05-20 08:53] LABS: POC Glucose,Bedside 105 gm/dL (70-110)
[2025-05-20 09:30] VITALS: BP 126/71; PULSE 77; RESP 16; TEMP 36.4; O2SAT 92
[2025-05-20 09:40] VITALS: BP 130/85; PULSE 65; RESP 18; TEMP 36.4; O2SAT 97
[2025-05-20 09:50] VITALS: BP 138/70; PULSE 64; RESP 18; TEMP 36.4; O2SAT 97
[2025-05-20 10:00] VITALS: BP 138/70; PULSE 64; RESP 16; TEMP 36.1; O2SAT 97
== END 2025-05-20 10:00 | disposition home or self-care (01) ==
PROVIDERS: PCP Internal Medicine; Visit Provider Internal Medicine Gastroenterology
PROC: 0DJD8ZZ Inspection of Lower Intestinal Tract, Via Natural or Artificial Opening Endoscopic (ICD-10-PCS; CPT 45378; principal; 2025-05-20 09:00)
DX: Z12.11 Encounter for screening for malignant neoplasm of colon (principal); K63.5 Polyp of colon; K64.0 First degree hemorrhoids; K64.1 Second degree hemorrhoids; K59.00 Constipation, unspecified; K58.2 Mixed irritable bowel syndrome; E78.5 Hyperlipidemia, unspecified; I11.0 Hypertensive heart disease with heart failure; I50.30 Unspecified diastolic (congestive) heart failure; J45.909 Unspecified asthma, uncomplicated; Z79.82 Long term (current) use of aspirin; Z88.1 Allergy status to other antibiotic agents; Z88.8 Allergy status to other drugs, medicaments and biological substances; Z86.0100 Personal history of colon polyps, unspecified
CPT/HCPCS: 45385; 82962; J2003; J2704; J7120

== ENCOUNTER 2025-07-05 13:16 | Outpatient (CLI) | payer OTHER, SELFPAY ==
--- NOTE | 2025-07-05 13:19 | XR_ITS ---
FINAL REPORT CLINICAL HISTORY: Fall at home 3 weeks ago, right shoulder pain COMPARISON: None FINDINGS: Three views of the right shoulder show no evidence of acute displaced fracture or dislocation of the visualized bony architecture. The joint spaces appear normal. Tiny calcification significant projecting in the superior joint measuring 3 mm, loose body not excluded. IMPRESSION: No acute bony abnormality. Possible loose body. Reviewed, Interpreted and Dictated by Nolan Singh MD Transcribed by Roxane Hale Authenticated and [facility]
== END 2025-07-05 23:59 | disposition home or self-care (01) ==
LOC: RAD 13:17
PROVIDERS: PCP Internal Medicine; Visit Provider Internal Medicine
DX: M25.511 Pain in right shoulder (principal); W19.XXXA Unspecified fall, initial encounter; R93.6 Abnormal findings on diagnostic imaging of limbs
CPT/HCPCS: 73030